=== PATIENT | female | born 1955 | race Caucasian/White ===

== ENCOUNTER 2017-08-11 08:33 | Day surgery (SDC) | payer MEDICARE, MEDICAID ==
[2017-08-10 15:06] VITALS: BMI 27.3
[2017-08-11] MEDS ORDERED: Midazolam HCl 2 mg/2 ml Vial ONE (09:41)
[2017-08-11] MEDS ORDERED: Fentanyl 100 MCG/2 ML VIAL ONE (09:41)
[2017-08-11] MEDS ORDERED: Lidocaine 1% (PF) 30 ML VIAL ONE (09:58)
[2017-08-11] MEDS ORDERED: Benzocaine 20% Spray 60 ML CAN ONE (09:58)
--- NOTE | 2017-08-11 12:14 | OP ---
DATE OF PROCEDURE: SERVICE: Pulmonary Medicine PROCEDURE: Fiberoptic bronchoscopy with: 1. Visual airway inspection. 2. Endobronchial brush of the right lower lobe. 3. Bronchioalveolar lavage of the right lower lobe. 4. Endobronchial biopsies of the right lower lobe. PREPROCEDURE DIAGNOSIS: Pulmonary mass. POSTPROCEDURE DIAGNOSIS: Pulmonary mass. PROCEDURE PARAPROFESSIONAL AIDE TEACHER: Aime Dale M.D. MEDICATIONS: For list of medicines, please refer to Anesthesia's documentation. We did instill 4 m L of a dilution of epinephrine topically into the airway. PREANESTHESIA ASSESSMENT: H\T\P had been performed. The patient's medications and allergies were r eviewed. Informed consent was obtained after discussing the risks, benefits, and rationale for perf orming the procedure as well as alternative options. DESCRIPTION OF PROCEDURE: A timeout was performed, identifying the correct procedure, patient name and date of . After induction of general anesthesia, an endotracheal tube was secured. The br onchoscope was advanced through the trachea where a tracheobronchial tree inspection was carried out with clear identification of the right upper lobe, right middle lobe, right lower lobe, left upper lobe, lingula, and left lower lobe. Anatomy was essentially normal with the exception of complete o bstruction of the superior segment of the right lower lobe. This was mostly an extrinsic compressio n. There was a possible mass that was distal to the extrinsic compression. This was not clearly id entified. Endobronchial brushing was obtained from the right lower lobe, superior segment. Endobro nchial biopsies were subsequently obtained. I was able to pass the instrument beyond or distal to t he lesion. Bronchioalveolar lavage was also obtained from the superior segment of the right lower l obe. Hemostasis was verified and the bronchoscope was subsequently removed from the patient. FINDINGS: 1. Extrinsic compression of the superior segment of the right lower lobe with possible distal mass. 2. The biopsy forceps were able to be passed distal to the extrinsic compression/mass. 3. Secretions were minimal and normal. SPECIMENS. 1. Brushing specimens for cytology. 2. Bronchioalveolar lavage for cytology. 3. Endobronchial biopsies for pathology. COMPLICATIONS: None. ESTIMATED BLOOD LOSS: 5 mL. FLUOROSCOPY TIME: None. DISPOSITION: The patient will be sent to the post-anesthesia care unit. After she meets criteria, she will be discharged home with follow up as previously directed.
[2017-08-11] MEDS ORDERED: Lidocaine 1% PF 5 ML VIAL ONE (12:53)
[2017-08-11] MEDS ORDERED: Propofol 200 MG/20 ML VIAL ONE (12:53)
[2017-08-11] MEDS ORDERED: EPINEPHrine 1 MG/10 ML Abboject SYRINGE ONE (12:53)
[2017-08-11] MEDS ORDERED: PHENYLEPHRINE-NS 100 MCG/ML 10 ML SYRINGE ONE (12:53)
[2017-08-11] MEDS ORDERED: Succinylcholine Chloride 20 MG/ML 10 ml SYRINGE FS ONE (12:53)
== END 2017-08-11 12:07 | disposition home or self-care (01) ==
LOC: SDC 08:33
PROVIDERS: ATTEND Internal Medicine
PROC: 0BDF8ZX Extraction of Right Lower Lung Lobe, Via Natural or Artificial Opening Endoscopic, Diagnostic (ICD-10-PCS; principal; 2017-08-11)
DX: R91.1 Solitary pulmonary nodule (principal); J44.9 Chronic obstructive pulmonary disease, unspecified; F32.9 Major depressive disorder, single episode, unspecified; M19.90 Unspecified osteoarthritis, unspecified site; I10 Essential (primary) hypertension; Z91.041 Radiographic dye allergy status; Z88.1 Allergy status to other antibiotic agents; Z79.899 Other long term (current) drug therapy; Z90.49 Acquired absence of other specified parts of digestive tract; Z90.710 Acquired absence of both cervix and uterus; Z98.890 Other specified postprocedural states; Z87.891 Personal history of nicotine dependence
CPT/HCPCS: 88104; 88112; 88305; 88313; 88341; 88342; J0171; J2001; J2250; J2704; J3010; J7620

== ENCOUNTER 2017-08-27 20:01 | Emergency (ER) | payer MEDICARE, MEDICAID ==
[2017-08-27 20:25] LABS: Bilirubin Negative (Negative); Blood, Urine Negative (Negative); Glucose, Urine (Dipstick) Negative (Negative); Ketone, Urine Negative (Negative); Nitrite Negative (Negative); Protein, Urine (Dipstick) Negative (Neg-Trace); Urobilinogen 0.2 mg/dL (0.2-1.0)
[2017-08-27 20:27] LABS: Bacteria/HPF Rare-Few HPF (None Seen); Hyaline Casts/LPF 0-3 HYALINE CAST LPF (0-3 Hyaline); Squamous Epithelial 0-3 HPF (0-3); WBC/HPF 0-3 HPF (0-3)
[2017-08-27] MEDS ORDERED: Ketorolac Tromethamine 30 MG/ML VIAL ONE (22:34)
--- NOTE | 2017-08-27 23:03 | CT ---
ABDOMEN AND PELVIC CT NONCONTRAST RENAL CALCULUS PROTOCOL 08/27/17 COMPARISON: 06/15/14 INDICATION: Abdominal pain. FINDINGS: No significant abnormality at the lung bases is present. No urolithiasis or obstructive uropathy. Pr ior cholecystectomy. Solid abdominal organs, bowel, lymph nodes, vasculature are limited in assessme nt without the presence of IV contrast or enteric contrast. There is colonic diverticulosis. Extens jyotsna atherosclerotic vascular disease is present. There is a fat containing noninflamed ventral abdom inal wall hernia. There are osseous degenerative changes. IMPRESSION: 1. No urolithiasis or obstructive uropathy. 2. Extensive atherosclerotic vascular disease. POS: [facility]
== END 2017-08-27 23:42 | disposition home or self-care (01) ==
LOC: ERS 20:01
DX: R31.9 Hematuria, unspecified (principal); J45.909 Unspecified asthma, uncomplicated; F41.9 Anxiety disorder, unspecified; F32.9 Major depressive disorder, single episode, unspecified; F17.210 Nicotine dependence, cigarettes, uncomplicated
CPT/HCPCS: 74176; 81003; 81015; 87086; 96372; J1885

== ENCOUNTER 2017-09-01 07:58 | Emergency (ER) | payer MEDICARE, MEDICAID ==
[2017-09-01] MEDS ORDERED: Ketorolac Tromethamine 60 MG/2 ML VIAL ONE (08:24)
[2017-09-01] MEDS ORDERED: Lorazepam 2 MG/ML VIAL ONE (08:55)
[2017-09-01] MEDS ORDERED: Morphine 10 MG/ML VIAL ONE (08:55)
== END 2017-09-01 09:55 | disposition home or self-care (01) ==
LOC: ERS 07:58
DX: M54.41 Lumbago with sciatica, right side (principal); I10 Essential (primary) hypertension; J45.909 Unspecified asthma, uncomplicated; K50.90 Crohn's disease, unspecified, without complications; F17.210 Nicotine dependence, cigarettes, uncomplicated; F32.9 Major depressive disorder, single episode, unspecified
CPT/HCPCS: J1885; J2060; J2270

== ENCOUNTER 2017-09-01 13:35 | Outpatient (CLI) | payer MEDICARE, MEDICAID ==
--- NOTE | 2017-09-02 10:22 | PET ---
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 Exam is requested for initial staging. TECHNIQUE: PET scanning with CT attenuation correction was performed from the base of the brain through the prox imal thighs following the intravenous administration of 12.5 mCi [id number] on the right hand. Imaging was performed after an uptake interval of 32 minutes. CORRELATION: CT scan of the chest dated 07/30/17 and abdomen and pelvis dated 07/21/17 from [facility]. FINDINGS: There is hypermetabolic activity in the right hilar mass seen on the CT scan with an SUV of 7.6. No hypermetabolic activity is seen in the small left lung nodule (lingula). No geri hypermetabolism is seen in the mediastinum, axillae, left hilum, neck, abdomen, or pelvis. No hypermetabolic liver, adrenal, or skeletal lesions are seen. There is physiologic activity in the GI and tracts, visualized portions of the brain, and some of the skeletal muscles. The CT scan used for attenuation correction demonstrates no evidence of pleural effusions or ascites. IMPRESSION: Right hilar/perihilar lung malignancy. No evidence of distant metastatic disease. POS: [facility]
== END 2017-09-01 13:36 | disposition home or self-care (01) ==
LOC: PET 13:35
PROVIDERS: ATTEND Internal Medicine
DX: C34.90 Malignant neoplasm of unspecified part of unspecified bronchus or lung (principal); C34.01 Malignant neoplasm of right main bronchus
CPT/HCPCS: 78815; A9552; 96372; 99406; J1885; J2060; J2270

== ENCOUNTER 2017-09-06 16:34 | Inpatient (IN) | payer MEDICARE, MEDICAID ==
[~2017-09-06 16:34] MED LIST: ISOVUE-370 76%-LOCM 1 ML ONE
--- NOTE | 2017-09-06 17:40 | RAD ---
CHEST 1 VIEW: Date: 09/06/17 HISTORY: Shortness of breath. Difficulty breathing. COMPARISON: PET scan dated 09/01/17. FINDINGS: There is a right hilar mass. Remainder of the lungs are relatively clear. No pneumothorax or effusion . IMPRESSION: 1. Right hilar mass. 2. Left lower lobe pulmonary nodule measuring approximately 7.[address] images from PET CT examin [facility]. POS: [facility]
[2017-09-06 17:41] LABS: Bilirubin Negative (Negative); Blood, Urine Negative (Negative); Glucose, Urine (Dipstick) Negative (Negative); Ketone, Urine Negative (Negative); Nitrite Negative (Negative); Protein, Urine (Dipstick) Negative (Neg-Trace); Urobilinogen 0.2 mg/dL (0.2-1.0)
[2017-09-06] MEDS ORDERED: methylPREDNISolone Sod Succ/PF 125 MG/2 ML VIAL ONE (17:55)
[2017-09-06] MEDS ORDERED: diphenhydrAMINE 50 MG/ML VIAL ONE (17:55)
[2017-09-06] MEDS ORDERED: Water For Inject, Bacteriostat 30 ML ONE (17:55)
[2017-09-06] MEDS ORDERED: Famotidine/PF 20 mg/2ml Vial ONE (17:58)
[2017-09-06 18:21] LABS: #Basophils 0.1 thou/uL (0.0-0.2); #Eosinphils 0.3 thou/uL (0.0-0.7); #Lymphocytes 2.1 thou/uL (1.20-3.40); #Monocytes 0.6 thou/uL (0.11-0.59); #Neutrophils 4.5 thou/uL (1.40-6.50); %Basophils 0.8 % (0.0-1.0); %Eosinophils 3.6 % (0.0-10.0); %Lymphocytes 27.7 % (21.0-51.0); %Monocytes 7.9 % (0.0-10.0); Mean Platelet Volume 6.2 fL (7.4-10.4); Red Blood Cell (RBC) Count 3.79 mill/uL (4.20-5.40); White Blood Cell (WBC) Count 7.5 thou/uL (4.8-10.8)
[2017-09-06 18:34] LABS: Lactic Acid - Sepsis 1.3 mmol/L (0.5-2.2)
[2017-09-06 18:38] LABS: ALT (SGPT) 29 U/L (8-55); AST (SGOT) 28 U/L (5-34); Alkaline Phosphatase 77 U/L (40-150); Anion Gap 14 mmol/L (10-20); BUN (Urea Nitrogen) 10 mg/dL (9.8-20.1); Bilirubin, Total 0.2 mg/dL (0.2-1.2); Calc. Creatinine Clearance 0 mL/min (70-130); Calcium 9.5 mg/dL (7.8-10.44); Carbon Dioxide 25 mmol/L (22-29); Chloride 102 mmol/L (98-107); Estimated GFR-MDRD 76; Globulin 3.4 g/dL (2.4-3.5); Lipase 5 U/L (8-78); Magnesium 1.9 mg/dL (1.6-2.6); Protein, Total 6.9 g/dL (6.0-8.3)
[2017-09-06 18:43] LABS: Troponin I Less than 0.010 ng/mL (< 0.028)
[2017-09-06] MEDS ORDERED: Enoxaparin Sodium 80 MG/0.8 ML SYRINGE ONE (19:33)
[2017-09-06] MEDS ORDERED: Morphine 4 MG/ML VIAL ONE (19:33)
--- NOTE | 2017-09-06 19:48 | CT ---
CTA CHEST WITH CONTRAST: Date: 09/06/17 HISTORY: Difficulty breathing today. COMPARISON: None. FINDINGS: CT angiogram chest performed after the intravenous administration of contrast. 3D rendering provided. There are emboli within the posterior and lateral segmental pulmonary arteries of the right lower lob e. There is also segmental occluding emboli within the posterior and lateral segmental branches of th e left lower lobe. No evidence of right heart strain. No pericardial effusion. No bowing of the intraventricular septum. Small, fat-containing ventral hernia is present. There are abnormal, mildly prominent portocaval lymph nodes. Right hilar mass is seen similar to the comparison PET CT examination. There are severe emphysematous changes. There is a nodule within the lingula measuring approximately 8.0 mm. There is new from the prior examination opacity within the lateral segment right lower lobe likely se quelae of hemorrhage and pulmonary infarction. No suspicious lytic or blastic lesions of the skeleton. IMPRESSION: 1. Bilateral lower lobe segmental pulmonary arterial filling defects with hemorrhage within lateral basal segment right lower lobe likely sequelae of pulmonary infarction. 2. Right hilar malignancy similar to the PET CT examination. 3. Extensive emphysematous changes. 4. Pulmonary nodule within the lingula measuring approximately 8 mm. Close attention on follow-up i emma is recommended. 5. 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 The subclavian is patent. Dr. Rhodes notified of findings at 1900 hours. CODE CR. POS: [facility]
--- NOTE | 2017-09-06 19:51 | CT ---
CT ABDOMEN AND PELVIS WITH CONTRAST: Date: 09/06/17 HISTORY: Abdominal pain. COMPARISON: PET CT from 09/01/17. FINDINGS: There are mildly prominent jostin hepatis lymph nodes measuring up to 8.0 mm short axis. There is mild fatty atrophy of the pancreas, Small, fat-containing supraumbilical ventral hernia. No dilated loops of large or small bowel. There appear to be hysterectomy changes and some scarring i n the pelvis. There is mild stranding around the right internal iliac veins with a thrombus of the in ferior vena cava. The IVC thrombus is infrarenal. Renal hypodensities are similar. No hydronephrosis. IMPRESSION: Large volume thrombus of the inferior vena cava measuring at least 6.0 cm in length extending into th e pelvic veins with inflammatory stranding around the deep internal iliac veins likely sequelae of th rombus. Dr. Rhodes notified of findings 1905 hours. CODE CR. POS: [facility]
--- NOTE | 2017-09-06 21:20 | PDOC.EVN ---
Event Note - Event Note Event Note: [id number] 1. PE + IVC thrombus 2. htn 3. copd + lUNG CA 4. DM type 2 5. Anxiety pLAN: SEE ORDERS
[2017-09-06] MEDS ORDERED: Ondansetron HCl/PF 4 MG/2 ML Vial IVP PRN (21:43)
[2017-09-06] MEDS ORDERED: HYDROcodone/Acetaminophen 5/325 mg Tablet PO PRN (21:43)
[2017-09-06] MEDS ORDERED: Ondansetron ODT 4 MG TAB SL PRN (21:43)
[2017-09-06] MEDS ORDERED: Acetaminophen 325 MG TAB PO PRN (21:43)
[2017-09-06] MEDS ORDERED: Morphine 4 MG/ML VIAL IV PRN (21:44)
[2017-09-06] MEDS ORDERED: Albuterol Sulfate 1.25 MG/3 ML NEB NEB PRN (22:07)
[2017-09-07] MEDS: methylPREDNISolone Sod Succ/PF 125 MG/2 ML VIAL IVP SCH ×5 (00:17→23:44)
[2017-09-07] MEDS: HYDROcodone/Acetaminophen 5/325 mg Tablet PO PRN ×2 (00:18→08:22)
[2017-09-07] MEDS: Sodium Chloride 0.45% 1,000 ML IV SCH ×2 (00:28→09:59)
[2017-09-07 05:28] LABS: #Lymphocytes 0.8 thou/uL (1.20-3.40); #Monocytes 0.1 thou/uL (0.11-0.59); #Neutrophils 6.7 thou/uL (1.40-6.50); %Eosinophils 0.2 % (0.0-10.0); %Lymphocytes 10.9 % (21.0-51.0); %Monocytes 1.7 % (0.0-10.0); Mean Platelet Volume 6.1 fL (7.4-10.4); Red Blood Cell (RBC) Count 3.88 mill/uL (4.20-5.40); White Blood Cell (WBC) Count 7.7 thou/uL (4.8-10.8)
[2017-09-07 05:45] LABS: ALT (SGPT) 29 U/L (8-55); AST (SGOT) 21 U/L (5-34); Alkaline Phosphatase 67 U/L (40-150); Anion Gap 14 mmol/L (10-20); BUN (Urea Nitrogen) 11 mg/dL (9.8-20.1); Bilirubin, Total 0.2 mg/dL (0.2-1.2); Calc. Creatinine Clearance 93 mL/min (70-130); Calcium 9.5 mg/dL (7.8-10.44); Carbon Dioxide 26 mmol/L (22-29); Chloride 100 mmol/L (98-107); Estimated GFR-MDRD 79; Globulin 3.7 g/dL (2.4-3.5); Protein, Total 7.3 g/dL (6.0-8.3)
--- NOTE | 2017-09-07 06:28 | HP ---
DATE OF ADMISSION: 09/06/2017 CHIEF COMPLAINT: Dyspnea. HISTORY OF PRESENT ILLNESS: The patient is a 61-year-old female with past medical history of right-s ided stage IV lung CA, currently not on chemo or radiation therapy, with hypertension, COPD, Crohn's disease, depression, anxiety, diabetes mellitus, came to the ER because of the dyspnea. The patient said she always has this but dyspnea got worse since this morning. Dyspnea occurs even with rest. D yspnea occurs with minimal exertion. Complains of chest pain, intermittent, sharp kind of pain in th e right side of the chest. Complains of some dry cough. Denies sputum production, denies any fever, denies any chills, no aggravating pain, denies any dizziness, denies any lightheadedness, denies any nausea, denies any vomiting. PAST MEDICAL HISTORY: As per HPI. PAST SURGICAL HISTORY: Colectomy, hysterectomy. SOCIAL HISTORY: Positive for smoking, denies alcohol, denies any drugs. FAMILY HISTORY: Denies any heart problems. REVIEW OF SYSTEMS: Constitutional: Denies any fever, denies any chills. Eyes: Denies any vision p roblems. Ears: Denies any hearing loss. Neck: Denies any neck pain. Cardiovascular System: Posi tive for chest pain. Respiratory System: Denies any cough, denies sputum production. Gastrointesti nal System: Denies any nausea. Denies any vomiting. Genitourinary: Denies dysuria. Integumentary : Denies any rash. All other review of systems are reviewed and negative. PHYSICAL EXAMINATION: CONSTITUTIONAL/VITAL SIGNS: At the time of H&P performed, blood pressure is 130/70, pulse ox 94% on 3 liters, afebrile, respiration rate 18. GENERAL: The patient appears tired. HEENT: Anterior nares patent. Nose normal. Ears normal. Teeth intact. Tongue is moist. NECK: Supple, no JVD. CARDIOVASCULAR SYSTEM: S1 and S2 present. Regular rate and rhythm. No murmurs, no rubs, no gallops . RESPIRATORY SYSTEM: Diminished breath sounds present. Positive for wheezing, no rhonchi. Normal ef fort. GASTROINTESTINAL: Abdomen is soft, nontender, no guarding, no organomegaly, no masses felt. MUSCULOSKELETAL: No edema. INTEGUMENTARY: No rashes seen. PSYCHIATRIC: Mood appropriate at this time. LABORATORY DATA: At the time of H&P performed, white count 7.5, hemoglobin 10.8, platelet count is 3 09. D-dimer 3.10. BMP shows sodium 137, potassium 4.2, chloride 102, CO2 of 25, BUN of 10, creatini ne 0.7, AST 28, ALT 29, alkaline phosphatase 77, lipase 5. UA, specific gravity 1.0016. 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 CT abdomen an d pelvis is positive for large volume thrombus in the inferior vena cava measuring at least 6 cm in l ength extending into the pelvic veins with inflammatory stranding around the deep internal iliac vein s, likely sequelae of thrombus. ASSESSMENT AND PLAN: The patient is a 61-year-old female: 1. 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 The patient did receive a dose of Lovenox in the ER. We will continue Lovenox. We will monitor the patient closely. We wi ll consult Hematology/Oncology to evaluate the patient. We will continue breathing treatments and we will follow the patient. 2. History of chronic obstructive pulmonary disease plus lung carcinoma. Continue breathing treatme nts. Plan to consult Pulmonary to evaluate the patient. Plan to start the patient on IV steroids al so. 3. Her right-sided chest pain appears atypical, plan is to check serial cardiac enzymes. We will mo nitor. 4. History of hypertension. Continue blood pressure meds. 5. History of diabetes mellitus type 2. Monitor blood sugars. We will give insulin sliding scale. 6. History of anxiety and depression, p.r.n. anxiolytics. The case was discussed in detail with the patient. The patient is FULL CODE.
[2017-09-07] MEDS ORDERED: Enoxaparin Sodium 80 MG/0.8 ML SYRINGE SC SCH (09:00)
[2017-09-07] MEDS: ALPRAZolam 0.25 MG TAB PO PRN ×2 (11:28→20:47)
[2017-09-07] MEDS: hydrALAZINE 20 MG/ML VIAL SLOW IVP PRN ×2 (11:51→20:38)
--- NOTE | 2017-09-07 12:34 | CON ---
DATE OF CONSULTATION: 09/07/2017 REASON FOR CONSULTATION: Lung cancer. HISTORY OF PRESENT ILLNESS: Ms. Steel is a 61-year-old female who presented to our facility with shortness of breath. She had a CT angio which noted a thrombus in the inferior vena cava. She also had bilateral subsegmental pulmonary emboli. She was started on Lovenox and admitted for further evaluation. In 07/[address] scan that showed pulmonary nodules including a 3.8 cm right posterior infrahilar mass and a 0.7 cm subpleural nodule at the left base. She had a bronchoscopy which showed a moderately differentiated adenocarcinoma. She followed up with Dr. Carrasco in August. She had a PET scan which was positive in the right perihilar area. The subpleural nodule was negative. Her on site coordinator who felt that she was a borderline operable so she was referred to [facility] to Dr. Roper for surgical evaluation. She has not been given an appointment yet. On Thursday, she began to have increasing shortness of breath and presented to our ER. PAST MEDICAL HISTORY: 1. Newly diagnosed lung cancer. 2. Hypertension. 3. Osteoarthritis. 4. Chronic obstructive pulmonary disease. 5. Bipolar disease. 6. Acid reflux. 7. Hepatitis C. 8. Crohn's disease. 9. History of polysubstance abuse. 10. History of uterine cancer, status post hysterectomy. 11. History of colon cancer with partial colectomy. PAST SURGICAL HISTORY: 1. Partial colectomy 2. Hysterectomy. 3. Cholecystectomy. 4. Bronchoscopy. ALLERGIES: CLARITHROMYCIN and IODINE. HOME MEDICATIONS: 1. Tylenol #3 p.r.n. 2. Albuterol inhaler. 3. Citalopram 20 mg daily. 4. Hydroxyzine 50 mg p.r.n. 5. Risperidone 2 mg b.i.d. 6. Trazodone 50 mg daily. FAMILY HISTORY: History of protein C deficiency. Her sister at the age of 19. Her mother at the age of 40 from clotting from blood clots. SOCIAL HISTORY: Single, has 3 children, lives at [facility]. REVIEW OF SYSTEMS: CONSTITUTIONAL: No fever, chills, night sweats. EYES: No blurred or double vision. ENT: No pain, hoarseness, sore throat, dysphagia. CARDIOVASCULAR: No chest pain, palpitations or syncope. RESPIRATORY: Positive shortness breath, dyspnea on exertion or orthopnea. GASTROINTESTINAL: No nausea, vomiting, diarrhea, constipation, or abdominal pain. GENITOURINARY: No dysuria or hematuria. MUSCULOSKELETAL: No joint or back pain. SKIN: No rash or pruritus. HEMATOLOGIC: No bleeding, bruising or clotting. NEUROLOGIC: Denies weakness, headache, numbness, tingling or seizure activity. PSYCHIATRIC: Positive for anxiety. PHYSICAL EXAMINATION: VITAL SIGNS: Temperature is 98.3, pulse is 86, respiratory rate 16, BP is 166/ 77. She is 96% on 2 liters. GENERAL: Well-developed, well-nourished female in no acute distress. HEENT: Normocephalic, atraumatic. Pupils equal and reactive to light. NECK: Supple. CARDIOVASCULAR: Regular rate and rhythm. LUNGS: Diminished throughout. ABDOMEN: Soft, nontender, bowel sounds are positive. EXTREMITIES: No clubbing, cyanosis or edema. SKIN: No rash. HEMATOLOGIC: No petechia or purpura. NEUROLOGICAL: Nonfocal. PSYCHIATRIC: The patient is alert and oriented and appropriate. PERTINENT LABORATORY AND X-RAYS: Current WBCs are 7.7, hemoglobin 11, hematocrit 34, platelet count 337,000. She got 88% neutrophils, 10% lymphocytes. D-dimer is 3.1. Sodium is 135, potassium 4.5, chloride 100, CO2 is 26, BUN 11, creatinine 0.75. Lactic acid is 1.3, calcium 9.5, total bilirubin is 0.2, AST is 21, ALT is 29, alkaline phosphatase is 67. CK-MB 3.7, troponin is less than 0.010. Serum total protein 7.3, albumin 3.6, globulin 3.7 , lipase is 5. Urine is negative for bacteria. Radiology per HPI. IMPRESSION: 1. Right lower lobe adenocarcinoma. 2. Pulmonary embolus, IVC thrombus. 3. Chronic obstructive pulmonary disease. DISCUSSION: The patient is currently on full dose Lovenox anticoagulation. She can be transitioned to oral anticoagulation with Eliquis, coumadin, or Xarelto. She is currently on O2. I will consult Dr. Dale for her COPD. The plan is for her to see Dr. Roper at [facility] for possible curative surgery. She should follow up with him and Dr. Luna in the outpatient setting. Thank you for the consult. CHRIS
--- NOTE | 2017-09-07 13:26 | PDOC.PN ---
- Subjective Encounter Start Date: 09/07/17 Encounter Start Time: 07:00 Pt seen for followup re: pulmonary embolism. Says she feels better. Still has SOBOE. No chest pain. - Objective MAR Reviewed: Yes Vital Signs & Weight: Vital Signs (12 hours) Temp Pulse Resp BP Pulse Ox 09/07/17 11:51 86 09/07/17 11:44 98.4 F 86 20 184/80 H 94 L 09/07/17 10:02 96 09/07/17 10:00 86 16 96 09/07/17 09:30 166/77 H 09/07/17 08:25 98.3 F 86 16 95 09/07/17 08:00 98.3 F 89 20 170/74 H 95 09/07/17 06:27 72 16 09/07/17 04:49 98.3 F 75 16 92/57 L 97 09/07/17 03:44 97.6 F 71 16 140/68 93 L Weight Admit Weight 167 lb 9.6 oz Weight 162 lb 14.4 oz I&O: 09/06/17 09/07/17 09/08/17 06:59 06:59 06:59 Intake Total 1431 Balance 1431 Result Diagrams: 09/07/17 04:51 09/07/17 04:51 EKG Reviewed by me: Yes (Tele: NSR) Phys Exam - Physical Examination Constitutional: NAD HEENT: PERRLA, moist MMs, sclera anicteric, oral pharynx no lesions Neck: no nodes, no JVD, supple, full ROM Respiratory: no wheezing, no rales, no rhonchi Diminished air entry anne bases Cardiovascular: RRR, no rub Gastrointestinal: soft, non-tender, no distention, positive bowel sounds Musculoskeletal: pulses present, edema present Neurological: moves all 4 limbs Psychiatric: normal affect, A&O x 3 Skin: no rash, normal turgor, cap refill <2 seconds Dx/Plan (1) Pulmonary embolism Code(s): I26.99 - OTHER PULMONARY EMBOLISM WITHOUT ACUTE COR PULMONALE Status : Acute (2) COPD exacerbation Code(s): J44.1 - CHRONIC OBSTRUCTIVE PULMONARY DISEASE W (ACUTE) EXACERBATION Status: Acute (3) HTN (hypertension) Code(s): I10 - ESSENTIAL (PRIMARY) HYPERTENSION Status: Chronic (4) DM2 (diabetes mellitus, type 2) Status: Chronic (5) Anxiety and depression Code(s): F41.8 - OTHER SPECIFIED ANXIETY DISORDERS Status: Chronic - Plan continue antibiotics, PT/OT * . Pt has been started on Lovenox, will switch to apixaban. Continue oxygen, steroids, bronchodilators and antibiotics. Monitor vital signs, titrate antihypertensives as needed. Continue accuchecks, insulin sliding scale. Review of Systems - Review of Systems Constitutional: negative: Fever, Chills, Sweats, Weakness, Malaise, Other Respiratory: Cough, Dry, Shortness of Breath, SOB with Excertion. negative: Hemoptysis, Pleuritic Pain, Sputum, Wheezing Cardiovascular: negative: Chest Pain, Palpitations, Orthopnea, Paroxysmal Noc. Dyspnea, Edema, Light Headedness Gastrointestinal: negative: Nausea, Vomiting, Abdominal Pain, Diarrhea, Constipation, Melena, Hematochezia Genitourinary: negative: Dysuria, Frequency, Incontinence, Hematuria, Retention - Medications/Allergies Allergies/Adverse Reactions: Allergies Allergy/AdvReac Type Severity Reaction Status Date / Time iodine Allergy Severe Anaphylaxis Verified 09/06/17 22:51 clarithromycin [From Biaxin] Allergy Rash Verified 09/06/17 22:51 Medications: Current Medications Acetaminophen/Codeine Phosphate (Tylenol #3) 1 tab PO Q6H PRN PRN Reason: Pain Albuterol Sulfate (Albuterol Sulfate) 1.25 mg NEB Q2H PRN PRN Reason: Wheezing Albuterol/Ipratropium (Duoneb) 3 ml IPPB [id number] [facility] Last Admin: 09/07/17 10:00 Dose: 3 ml Alprazolam (Xanax) 0.25 mg PO TIDPRN PRN PRN Reason: Anxiety Last Admin: 09/07/17 11:28 Dose: 0.25 mg Enoxaparin Sodium (Lovenox) 80 mg SC 0900,2100 [facility] Last Admin: 09/07/17 08:21 Dose: 80 mg Hydralazine HCl (Apresoline) 10 mg SLOW IVP Q6H PRN PRN Reason: SBP Greater Than 170 Last Admin: 09/07/17 11:51 Dose: 10 mg Methylprednisolone Sodium Succinate (Solu-Medrol) 60 mg IVP Q6HR [facility] Last Admin: 11/20/17 11:28 Dose: 60 mg Sodium Chloride (Flush - Normal Saline) 10 ml IVF Q12HR [facility] Last Admin: 09/07/17 08:22 Dose: Not Given Sodium Chloride (Flush - Normal Saline) 10 ml IVF PRN PRN PRN Reason: Saline Flush
--- NOTE | 2017-09-07 15:44 | ULT ---
BILATERAL LOWER EXTREMITY VENOUS DOPLER WITH SPECTRAL ANALYSIS AND COLOR FLOW EVALUATION: DATE: 09/07/17. HISTORY: Bilateral pulmonary emboli. FINDINGS: Ford scale, color flow, Doppler evaluation, and spectral analysis of the bilateral lower extremity ve nous structures is performed with 2D imaging. The bilateral lower extremity common femoral, superfic ial femoral, popliteal, posterior tibial, most proximal greater saphenous, and profunda femoral veins are imaged. There is normal lumen compressibility, flow, and augmentation in the visualized deep venous structure s of the bilateral lower extremities. IMPRESSION: No evidence of a deep vein thrombosis involving the visualized deep venous structures bilateral lower extremities. POS: [facility]
--- NOTE | 2017-09-07 16:48 | CON ---
DATE OF CONSULTATION: 09/07/2017 CONSULTING PHYSICIAN: [facility]. REASON FOR CONSULTATION: COPD management. HISTORY OF PRESENT ILLNESS: This is a 61-year-old female who was recently diagnosed with stage IV jin ng cancer, mainly encompassing the right lung. She underwent fiberoptic bronchoscopy by Dr. Dale on 08/11/2017. The pathology results demonstrated adenocarcinoma. She is currently in the process o f an oncologic workup, but has not started any type of therapy. Yesterday, she came in with severe shortness of breath. She lives in a homeless [facility]. She has be en unable to take breathing medication because she does not have a nebulizer to do so. She has CT pu lmonary angiogram performed here, which showed the aforementioned malignancy. She also had several s mall emboli in both of her lower lobes. PAST MEDICAL HISTORY: 1. Chronic obstructive pulmonary disease. 2. Uterine cancer. 3. Colon cancer. 4. Asthma. 5. Crohn's disease. 6. Major depressive disorder. 7. Osteoarthritis. 8. Chronic back pain. 9. Alcohol abuse. 10. Hypertension. 11. Polysubstance abuse. PAST SURGICAL HISTORY: 1. Partial colectomy. 2. Hysterectomy. 3. Cholecystectomy. 4. Bronchoscopy. FAMILY MEDICAL HISTORY: Remarkable for lung cancer in her sister, dad had tuberculosis. SOCIAL HISTORY: She smokes 7 cigarettes per day. She smoked more heavily in the past. Does not use any illicit drugs currently, but had a history of using some in the past. She lives at the [facility]. ALLERGIES: IODINE and BIAXIN. MEDICATIONS PRIOR TO ADMISSION: Albuterol, risperidone, citalopram, hydroxyzine, and trazodone. REVIEW OF SYSTEMS: Otherwise, negative. PHYSICAL EXAMINATION: VITAL SIGNS: Temperature is 98.4, pulse 86, respirations 16, O2 sat 97% on 2 liters, blood pressure 184/80. GENERAL: She is awake, alert, pleasant, and in no distress. HEENT: Pupils react. Sclerae anicteric. Oropharynx clear. NECK: Without adenopathy or JVD. LUNGS: Clear to auscultation without wheezing or rhonchi. CARDIAC: S1, S2 regular without murmur. ABDOMEN: Soft and nontender. EXTREMITIES: Show trace edema in the ankle region. NEUROLOGIC: Nonfocal. SKIN: Shows no abnormalities. LABORATORY DATA: White blood cell count 7.7, hematocrit 34, platelet count 337. D-dimer 3.1. Sodiu m 135, potassium 4.5, chloride 100, CO2 of 26, BUN 11, creatinine 0.7, glucose 151. ASSESSMENT: 1. Pulmonary emboli. 2. Lung cancer. 3. Chronic obstructive pulmonary disease. RECOMMENDATIONS: She needs to be anticoagulated, probably indefinitely given her underlying malignan cy. She also has a history of protein S deficiency and family members and she may well be that way t o. Anticoagulation will be somewhat tricky. My guess would be because of her financial situation, t he newer anticoagulants will not be affordable to her and she may need to be on warfarin instead of t he Eliquis that she currently having her own. Her COPD issues can be treated with DuoNeb or a Combiv ent inhaler. I do not think she needs to be on steroids at this time. I would go ahead and scan her lower extremities to see if she has a DVT. I will turn her case over to Dr. Dale tomorrow.
[2017-09-07] MEDS: Acetaminophen/Codeine 30-300mg Tablet PO PRN ×2 (17:24→23:45)
[2017-09-07] MEDS: Apixaban 5 MG TAB PO SCH (20:37)
[2017-09-08 05:19] LABS: Hematocrit 36.8 % (36.0-47.0)
[2017-09-08] MEDS: methylPREDNISolone Sod Succ/PF 125 MG/2 ML VIAL IVP SCH ×4 (06:20→20:31)
[2017-09-08] MEDS: Acetaminophen/Codeine 30-300mg Tablet PO PRN ×2 (06:25→17:53)
--- NOTE | 2017-09-08 09:18 | PDOC.PN ---
- Subjective Encounter Start Date: 09/08/17 Encounter Start Time: 07:40 Pt seen for followup re; pulmonary embolism. Denies chest pain, shortness of breath is better. No nausea or vomiting. - Objective MAR Reviewed: Yes Vital Signs & Weight: Vital Signs (12 hours) Temp Pulse Resp BP Pulse Ox 09/08/17 07:20 98.4 F 72 16 181/82 H 100 09/08/17 07:16 81 16 94 L 09/08/17 04:42 98 09/08/17 03:46 98.6 F 88 16 153/70 H 96 09/08/17 03:05 85 16 95 09/07/17 23:55 98.6 F 103 H 16 105/68 98 09/07/17 22:29 73 16 96 Weight Admit Weight 167 lb 9.6 oz Weight 162 lb 14.4 oz I&O: 09/07/17 09/08/17 09/09/17 06:59 06:59 06:59 Intake Total 1431 3540 Balance 1431 3540 Result Diagrams: 09/08/17 05:08 09/07/17 04:51 EKG Reviewed by me: Yes (Tele: NSR) Phys Exam - Physical Examination Constitutional: NAD HEENT: PERRLA, moist MMs, sclera anicteric, oral pharynx no lesions Neck: no nodes, no JVD, supple, full ROM Respiratory: no wheezing, no rales, no rhonchi, clear to auscultation bilateral Diminished air entry anne bases Cardiovascular: RRR, no rub Gastrointestinal: soft, non-tender, no distention, positive bowel sounds Musculoskeletal: pulses present Neurological: moves all 4 limbs Psychiatric: normal affect, A&O x 3 Skin: no rash, normal turgor, cap refill <2 seconds Dx/Plan (1) Pulmonary embolism Code(s): I26.99 - OTHER PULMONARY EMBOLISM WITHOUT ACUTE COR PULMONALE Status : Acute (2) COPD exacerbation Code(s): J44.1 - CHRONIC OBSTRUCTIVE PULMONARY DISEASE W (ACUTE) EXACERBATION Status: Acute (3) HTN (hypertension) Code(s): I10 - ESSENTIAL (PRIMARY) HYPERTENSION Status: Chronic (4) DM2 (diabetes mellitus, type 2) Status: Chronic (5) Anxiety and depression Code(s): F41.8 - OTHER SPECIFIED ANXIETY DISORDERS Status: Chronic - Plan PT/OT, out of bed/ambulate * . Pt has been started on Apixaban. However, because of cost of apixaban, will start her on warfarin (with Lovenox bridge). Will request pharmacy to manage warfarin. Continue oxygen, bronchodilators. To followup with surgeons in [place] for treatment of lung cancer. Review of Systems - Review of Systems Constitutional: negative: Fever, Chills, Sweats, Weakness, Malaise Respiratory: Cough, Shortness of Breath. negative: Dry, Hemoptysis, Pleuritic Pain, Sputum, Wheezing Cardiovascular: negative: Chest Pain, Palpitations, Orthopnea, Paroxysmal Noc. Dyspnea, Edema, Light Headedness Genitourinary: negative: Dysuria, Frequency, Incontinence, Hematuria, Retention Neurological: negative: Weakness, Numbness, Incoordination, Change in Speech, Confusion, Seizures - Medications/Allergies Allergies/Adverse Reactions: Allergies Allergy/AdvReac Type Severity Reaction Status Date / Time iodine Allergy Severe Anaphylaxis Verified 09/06/17 22:51 clarithromycin [From Biaxin] Allergy Rash Verified 09/06/17 22:51 Medications: Current Medications Acetaminophen/Codeine Phosphate (Tylenol #3) 1 tab PO Q6H PRN PRN Reason: Pain Last Admin: 09/08/17 06:25 Dose: 1 tab Albuterol Sulfate (Albuterol Sulfate) 1.25 mg NEB Q2H PRN PRN Reason: Wheezing Albuterol/Ipratropium (Duoneb) 3 ml IPPB [id number] [facility] Alprazolam (Xanax) 0.25 mg PO TIDPRN PRN PRN Reason: Anxiety Last Admin: 09/07/17 20:47 Dose: 0.25 mg Apixaban (Eliquis) 10 mg PO BID [facility] Last Admin: 09/07/17 20:37 Dose: 10 mg Hydralazine HCl (Apresoline) 10 mg SLOW IVP Q6H PRN PRN Reason: SBP Greater Than 170 Last Admin: 09/07/17 20:38 Dose: 10 mg Methylprednisolone Sodium Succinate (Solu-Medrol) 60 mg IVP Q6HR [facility] Last Admin: 09/08/17 06:20 Dose: Not Given Sodium Chloride (Flush - Normal Saline) 10 ml IVF Q12HR [facility] Last Admin: 09/07/17 20:37 Dose: 10 ml Sodium Chloride (Flush - Normal Saline) 10 ml IVF PRN PRN PRN Reason: Saline Flush Last Admin: 09/07/17 23:45 Dose: 10 ml
[2017-09-08] MEDS ORDERED: hydrALAZINE 25 MG TAB PO PRN (09:25)
[2017-09-08] MEDS ORDERED: Enoxaparin Sodium 40 MG/0.4 ML SYRINGE SC SCH (09:30)
[2017-09-08] MEDS ORDERED: Amlodipine 5 MG TAB PO SCH (09:30)
[2017-09-08] MEDS: Apixaban 5 MG TAB PO SCH (09:52)
[2017-09-08] MEDS ORDERED: Enoxaparin Sodium 80 MG/0.8 ML SYRINGE SC SCH (10:00)
[2017-09-08] MEDS: ALPRAZolam 0.25 MG TAB PO PRN ×2 (10:09→17:55)
[2017-09-08 12:21] LABS: Prothrombin Time 13.8 SEC (12.0-14.7)
--- NOTE | 2017-09-08 15:35 | PRG ---
DATE OF SERVICE: 09/08/2017 SERVICE: Pulmonary Medicine. INTERVAL HISTORY: The patient is breathing much better today. She denies any current fevers, chills , nausea, vomiting or chest discomfort. Otherwise, she is returning to her usual state of health and has no specific complaints. PHYSICAL EXAMINATION: VITAL SIGNS: Afebrile, pulse 93, blood pressure 169/74, respirations 20, saturation 98% on room air. GENERAL: Patient is awake, alert, no apparent distress. LUNGS: Decreased air entry with prolonged expiratory phase. There is no wheezing, rhonchi, or crack les present. HEART: Normal rate and regular. ABDOMEN: Soft, nontender, nondistended. Bowel sounds positive. MUSCULOSKELETAL: No cyanosis or clubbing. No pitting in the bilateral lower extremities. NEUROLOGIC: Grossly nonfocal. LABORATORY DATA: Hemoglobin 11.6, platelets 402,000, INR 1.1. Basic metabolic profile and comprehen sive metabolic profile were previously unremarkable. IMAGING: Ultrasound of the bilateral lower extremities demonstrates no evidence of DVT involving the visualized portions of the venous structures in the bilateral lower extremities. ASSESSMENT: 1. Chronic obstructive pulmonary disease without current exacerbation. 2. Pulmonary embolism, bilateral. 3. Acute hypoxic respiratory failure, resolved. 4. Lung cancer. PLAN: We will continue Coumadin. The patient will not have any funding for long-term anticoagulatio n within normal agent. We will continue nebulized medications as previously initiated. The patient will be stable for discharge in the hospital since she has good follow up with Coumadin clinic in her blood is thin enough. I will continue to follow until that happens.
[2017-09-08] MEDS ORDERED: Warfarin Sodium 5 MG TAB PO SCH (17:00)
[2017-09-08] MEDS: Warfarin Sodium 5 MG TAB PO SCH (17:53)
[2017-09-08] MEDS: Enoxaparin Sodium 80 MG/0.8 ML SYRINGE SC SCH (20:34)
[2017-09-09] MEDS: Acetaminophen/Codeine 30-300mg Tablet PO PRN ×4 (00:07→22:27)
[2017-09-09 05:16] LABS: Prothrombin Time 13.3 SEC (12.0-14.7)
[2017-09-09 05:23] LABS: Hematocrit 36.9 % (36.0-47.0)
[2017-09-09 05:32] LABS: Calc. Creatinine Clearance 101 mL/min (70-130); Estimated GFR-MDRD Greater than 90
[2017-09-09] MEDS: Amlodipine 5 MG TAB PO SCH (08:37)
[2017-09-09] MEDS: ALPRAZolam 0.25 MG TAB PO PRN ×2 (08:37→16:05)
[2017-09-09] MEDS: Enoxaparin Sodium 80 MG/0.8 ML SYRINGE SC SCH ×2 (08:37→21:11)
--- NOTE | 2017-09-09 13:36 | PDOC.PN ---
- Subjective Encounter Start Date: 09/09/17 Encounter Start Time: 07:20 Pt seen for followup re: pulmonary embolism. No chest pain, shortness of breath , fevers. - Objective MAR Reviewed: Yes Vital Signs & Weight: Vital Signs (12 hours) Temp Pulse Resp BP BP Pulse Ox 09/09/17 11:30 97.8 F 77 18 139/68 94 L 09/09/17 11:25 79 18 94 L 09/09/17 08:37 97.6 F 82 16 167/75 H 95 09/09/17 07:25 97.6 F 82 18 167/75 H 95 09/09/17 06:33 78 16 96 09/09/17 03:45 97.9 F 64 16 157/67 H 98 Weight Admit Weight 167 lb 9.6 oz Weight 151 lb 4.8 oz I&O: 09/08/17 09/09/17 09/10/17 06:59 06:59 06:59 Intake Total 3540 430 Balance 3540 430 Result Diagrams: 09/09/17 04:35 09/09/17 04:35 Phys Exam - Physical Examination Constitutional: NAD HEENT: moist MMs Neck: supple Respiratory: no wheezing, no rales, no rhonchi, clear to auscultation bilateral Cardiovascular: RRR Gastrointestinal: soft, non-tender Neurological: moves all 4 limbs Psychiatric: normal affect Dx/Plan (1) Pulmonary embolism Code(s): I26.99 - OTHER PULMONARY EMBOLISM WITHOUT ACUTE COR PULMONALE Status : Acute (2) COPD exacerbation Code(s): J44.1 - CHRONIC OBSTRUCTIVE PULMONARY DISEASE W (ACUTE) EXACERBATION Status: Acute (3) HTN (hypertension) Code(s): I10 - ESSENTIAL (PRIMARY) HYPERTENSION Status: Chronic (4) DM2 (diabetes mellitus, type 2) Status: Chronic (5) Anxiety and depression Code(s): F41.8 - OTHER SPECIFIED ANXIETY DISORDERS Status: Chronic - Plan PT/OT, out of bed/ambulate * . INR subtherapeutic, continue warfarin with Lovenox bridge. Continue oxygen, bronchodilators. Continue insulin and accuchecks. Mionitor vital signs and titrate antihypertensives as needed. Review of Systems - Review of Systems Respiratory: negative: Cough, Dry, Shortness of Breath, Hemoptysis, SOB with Excertion, Pleuritic Pain, Sputum, Wheezing Cardiovascular: negative: Chest Pain, Palpitations, Orthopnea, Paroxysmal Noc. Dyspnea, Edema, Light Headedness - Medications/Allergies Allergies/Adverse Reactions: Allergies Allergy/AdvReac Type Severity Reaction Status Date / Time iodine Allergy Severe Anaphylaxis Verified 09/06/17 22:51 clarithromycin [From Biaxin] Allergy Rash Verified 09/06/17 22:51 Medications: Current Medications Acetaminophen/Codeine Phosphate (Tylenol #3) 1 tab PO Q6H PRN PRN Reason: Pain Last Admin: 09/09/17 10:03 Dose: 1 tab Albuterol Sulfate (Albuterol Sulfate) 1.25 mg NEB Q2H PRN PRN Reason: Wheezing Albuterol/Ipratropium (Duoneb) 3 ml NEB [id number] [facility] Last Admin: 09/09/17 11:25 Dose: 3 ml Alprazolam (Xanax) 0.25 mg PO TIDPRN PRN PRN Reason: Anxiety Last Admin: 09/09/17 08:37 Dose: 0.25 mg Amlodipine Besylate (Norvasc) 5 mg PO DAILY [facility] Last Admin: 09/09/17 08:37 Dose: 5 mg Enoxaparin Sodium (Lovenox) 70 mg SC 0900,2100 [facility] Last Admin: 09/09/17 08:37 Dose: 70 mg Hydralazine HCl (Apresoline) 10 mg SLOW IVP Q6H PRN PRN Reason: SBP Greater Than 170 Last Admin: 09/07/17 20:38 Dose: 10 mg Hydralazine HCl (Apresoline) 25 mg PO QIDPRN PRN PRN Reason: SBP Greater Than 180 Miscellaneous Medication (Pharmacy To Dose) 0 each PO ASDIR PRN PRN Reason: Pharmacy to Dose WARFARIN Sodium Chloride (Flush - Normal Saline) 10 ml IVF Q12HR [facility] Last Admin: 09/09/17 09:41 Dose: Not Given Sodium Chloride (Flush - Normal Saline) 10 ml IVF PRN PRN PRN Reason: Saline Flush Last Admin: 09/07/17 23:45 Dose: 10 ml Warfarin Sodium (Coumadin) 5 mg PO 1700 [facility] Last Admin: 09/08/17 17:53 Dose: 5 mg
[2017-09-09] MEDS: Warfarin Sodium 5 MG TAB PO SCH (16:02)
--- NOTE | 2017-09-09 18:42 | PRG ---
DATE OF SERVICE: 09/09/2017 SERVICE: Pulmonary Medicine. INTERVAL HISTORY: The patient is doing great from a respiratory standpoint. She has essentially ret urned to her usual state of health. She denies any fevers, chills, nausea, vomiting or overnight mary nts. PHYSICAL EXAMINATION: VITAL SIGNS: Afebrile, pulse 80, blood pressure 153/69, respirations 18, saturation 96% on room air. GENERAL: The patient is awake, alert, no apparent distress. LUNGS: Decent air entry. There is prolonged expiratory phase. I do not appreciate polyphonic wheez es today. He had no crackles or rhonchi appreciated. HEART: Normal rate, regular. ABDOMEN: Soft, nontender, nondistended. Bowel sounds positive. MUSCULOSKELETAL: No cyanosis or clubbing. No pitting in the bilateral lower extremities. NEUROLOGIC: Grossly nonfocal. LABORATORY DATA: Hemoglobin 11.7 and stable. Platelets 386,000. INR is still 1.0. Basic metabolic profile and liver function studies are essentially unremarkable. Urinalysis was negative to date. ASSESSMENT: 1. Chronic obstructive pulmonary disease without current exacerbation. 2. Pulmonary embolism, small and bilateral. 3. Acute hypoxic respiratory failure, resolved. 4. Lung cancer. PLAN: The patient will remain on her Coumadin. If her INR remains 1 by tomorrow, we may need to inc rease that dose. Otherwise, supportive measures will be continued. Once she is therapeutic on the C oumadin for 2 days, the Lovenox can be discontinued and she can be discharged from the hospital. Of note, she is going to go see Dr. Roper in roughly 1-2 weeks in the outpatient setting to conside r for a lobectomy. Pulmonary will continue to follow while she remains in house for now.
[2017-09-09] MEDS: Zolpidem Tartrate 5 MG TAB PO PRN (21:11)
[2017-09-10] MEDS: ALPRAZolam 0.25 MG TAB PO PRN (00:59)
[2017-09-10 05:38] LABS: Prothrombin Time 13.8 SEC (12.0-14.7)
[2017-09-10] MEDS: Amlodipine 5 MG TAB PO SCH (08:50)
[2017-09-10] MEDS: Enoxaparin Sodium 80 MG/0.8 ML SYRINGE SC SCH ×2 (08:50→20:02)
[2017-09-10] MEDS: Acetaminophen/Codeine 30-300mg Tablet PO PRN ×3 (08:51→22:52)
--- NOTE | 2017-09-10 09:06 | PDOC.PN ---
- Subjective Encounter Start Date: 09/10/17 Encounter Start Time: 09:05 Subjective: feels well. wants to go home. feels anxious. -: no chest pain/SOB. - Objective MAR Reviewed: Yes Vital Signs & Weight: Vital Signs (12 hours) Temp Pulse Resp BP BP Pulse Ox 09/10/17 07:45 97.9 F 84 20 150/108 H 98 09/10/17 06:34 82 16 94 L 09/10/17 04:10 97.9 F 79 16 117/62 94 L 09/10/17 00:42 89 16 94 L 09/10/17 00:19 98.4 F 75 18 141/65 H 91 L 09/09/17 22:26 75 153/67 H Weight Admit Weight 167 lb 9.6 oz Weight 151 lb 4.8 oz I&O: 09/09/17 09/10/17 09/11/17 06:59 06:59 06:59 Intake Total 430 240 Balance 430 240 Result Diagrams: 09/09/17 04:35 09/09/17 04:35 Additional Labs: Laboratory Tests 09/06/17 09/06/17 09/06/17 18:14 18:14 18:14 Hgb 10.8 L Plt Count 309 INR D-Dimer Troponin I Less than 0.010 B-Natriuretic Peptide 54.8 09/06/17 09/07/17 09/08/17 18:14 04:51 05:08 Hgb 11.0 L 11.6 L Plt Count 337 402 H INR D-Dimer 3.10 H Troponin I B-Natriuretic Peptide 09/08/17 09/09/17 09/09/17 12:01 04:35 04:35 Hgb 11.7 L Plt Count 386 INR 1.1 1.0 D-Dimer Troponin I B-Natriuretic Peptide 09/10/17 04:44 Hgb Plt Count INR 1.1 D-Dimer Troponin I B-Natriuretic Peptide Phys Exam - Physical Examination Constitutional: NAD HEENT: PERRLA, moist MMs, sclera anicteric, oral pharynx no lesions Neck: no nodes, no JVD, supple, full ROM Respiratory: no wheezing, no rales, no rhonchi, clear to auscultation bilateral Cardiovascular: RRR, no significant murmur, no rub, gallop Gastrointestinal: soft, non-tender, no distention, positive bowel sounds Musculoskeletal: no edema, pulses present Neurological: non-focal, normal sensation, moves all 4 limbs Psychiatric: normal affect, A&O x 3 Dx/Plan (1) Pulmonary embolism Code(s): I26.99 - OTHER PULMONARY EMBOLISM WITHOUT ACUTE COR PULMONALE Status : Acute Comment: on AC with coumadin and lovenox bridge (2) COPD exacerbation Code(s): J44.1 - CHRONIC OBSTRUCTIVE PULMONARY DISEASE W (ACUTE) EXACERBATION Status: Acute (3) IVC thrombosis Code(s): 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 - ACUTE EMBOLISM AND THROMBOSIS OF INFERIOR VENA CAVA Status : Acute (4) Adenocarcinoma, lung Code(s): C34.90 - MALIGNANT NEOPLASM OF UNSP PART OF UNSP BRONCHUS OR LUNG Status: Acute (5) H/O malignant neoplasm of colon Code(s): Z85.038 - PERSONAL HISTORY OF MALIGNANT NEOPLASM OF LARGE INTESTINE Status: Chronic Comment: s/p colectomy (6) H/O malignant neoplasm of uterine body Code(s): Z85.42 - PERSONAL HISTORY OF MALIGNANT NEOPLASM OF OTH PRT UTERUS Status: Chronic Comment: s/p hystrectomy (7) Crohn disease Code(s): K50.90 - CROHN'S DISEASE, UNSPECIFIED, WITHOUT COMPLICATIONS Status: Chronic (8) Hep C w/o coma, chronic Code(s): B18.2 - CHRONIC VIRAL HEPATITIS C Status: Chronic (9) Anxiety and depression Code(s): F41.8 - OTHER SPECIFIED ANXIETY DISORDERS Status: Chronic (10) DM2 (diabetes mellitus, type 2) Status: Chronic (11) HTN (hypertension) Code(s): I10 - ESSENTIAL (PRIMARY) HYPERTENSION Status: Chronic - Plan respiratory therapy, incentive spirometry, DVT proph w/lovenox, DVT proph w/SCDs cont Coumadin w lovenox bridging.INR still sub therapeutic. -: Pharmacy to manage. -: Increase Xanax dose -: hemodynamically stable. * . Review of Systems - Review of Systems Constitutional: negative: Fever, Chills, Sweats, Weakness, Malaise, Other ENT: negative: Ear Pain, Ear Discharge, Nose Pain, Nose Discharge, Nose Congestion, Mouth Pain, Mouth Swelling, Throat Pain, Throat Swelling, Other Respiratory: negative: Cough, Dry, Shortness of Breath, Hemoptysis, SOB with Excertion, Pleuritic Pain, Sputum, Wheezing Cardiovascular: negative: Chest Pain, Palpitations, Orthopnea, Paroxysmal Noc. Dyspnea, Edema, Light Headedness, Other Gastrointestinal: negative: Nausea, Vomiting, Abdominal Pain, Diarrhea, Constipation, Melena, Hematochezia, Other Genitourinary: negative: Dysuria, Frequency, Incontinence, Hematuria, Retention , Other Musculoskeletal: negative: Neck Pain, Shoulder Pain, Arm Pain, Back Pain, Hand Pain, Leg Pain, Foot Pain, Other Neurological: negative: Weakness, Numbness, Incoordination, Change in Speech, Confusion, Seizures, Other - Medications/Allergies Allergies/Adverse Reactions: Allergies Allergy/AdvReac Type Severity Reaction Status Date / Time iodine Allergy Severe Anaphylaxis Verified 09/06/17 22:51 clarithromycin [From Biaxin] Allergy Rash Verified 09/06/17 22:51 Medications: Current Medications Acetaminophen/Codeine Phosphate (Tylenol #3) 1 tab PO Q6H PRN PRN Reason: Pain Last Admin: 09/10/17 08:51 Dose: 1 tab Albuterol Sulfate (Albuterol Sulfate) 1.25 mg NEB Q2H PRN PRN Reason: Wheezing Albuterol/Ipratropium (Duoneb) 3 ml NEB [id number] [facility] Last Admin: 09/10/17 06:34 Dose: 3 ml Alprazolam (Xanax) 0.25 mg PO TIDPRN PRN PRN Reason: Anxiety Last Admin: 09/10/17 00:59 Dose: 0.25 mg Amlodipine Besylate (Norvasc) 5 mg PO DAILY [facility] Last Admin: 09/10/17 08:50 Dose: 5 mg Enoxaparin Sodium (Lovenox) 70 mg SC 0900,2100 [facility] Last Admin: 09/10/17 08:50 Dose: 70 mg Hydralazine HCl (Apresoline) 10 mg SLOW IVP Q6H PRN PRN Reason: SBP Greater Than 170 Last Admin: 09/07/17 20:38 Dose: 10 mg Hydralazine HCl (Apresoline) 25 mg PO QIDPRN PRN PRN Reason: SBP Greater Than 180 Miscellaneous Medication (Pharmacy To Dose) 0 each PO ASDIR PRN PRN Reason: Pharmacy to Dose WARFARIN Sodium Chloride (Flush - Normal Saline) 10 ml IVF Q12HR [facility] Last Admin: 09/10/17 08:51 Dose: 10 ml Sodium Chloride (Flush - Normal Saline) 10 ml IVF PRN PRN PRN Reason: Saline Flush Last Admin: 09/07/17 23:45 Dose: 10 ml Warfarin Sodium (Coumadin) 5 mg PO 1700 [facility] Last Admin: 09/09/17 16:02 Dose: 5 mg Zolpidem Tartrate (Ambien) 5 mg PO HS PRN PRN Reason: Insomnia Last Admin: 09/09/17 21:11 Dose: 5 mg
[2017-09-10] MEDS: ALPRAZolam 0.5 MG TAB PO PRN ×2 (10:26→20:02)
[2017-09-10] MEDS: Warfarin Sodium 7.5 MG TAB PO SCH (16:29)
[2017-09-10] MEDS ORDERED: Loperamide HCl 2 MG CAP PO PRN (16:35)
[2017-09-10] MEDS: Zolpidem Tartrate 5 MG TAB PO PRN (22:53)
[2017-09-11 05:32] LABS: Hematocrit 37.5 % (36.0-47.0)
[2017-09-11 05:34] LABS: Prothrombin Time 16.2 SEC (12.0-14.7)
[2017-09-11] MEDS: Amlodipine 5 MG TAB PO SCH (08:01)
[2017-09-11] MEDS: Enoxaparin Sodium 80 MG/0.8 ML SYRINGE SC SCH ×2 (08:01→20:36)
[2017-09-11] MEDS: ALPRAZolam 0.5 MG TAB PO PRN ×2 (08:01→16:23)
[2017-09-11] MEDS ORDERED: TRAZODONE 50 MG PO PRN (08:36)
--- NOTE | 2017-09-11 08:42 | PDOC.PN ---
- Subjective Encounter Start Date: 09/11/17 Encounter Start Time: 08:41 Subjective: no new complaints. - Objective MAR Reviewed: Yes Vital Signs & Weight: Vital Signs (12 hours) Temp Pulse Resp BP Pulse Ox 09/11/17 07:25 97.6 F 70 18 174/77 H 100 09/11/17 07:22 98 09/11/17 07:20 77 20 98 09/11/17 03:37 98.5 F 75 16 124/60 95 09/11/17 00:52 95 09/11/17 00:09 98.5 F 78 24 H 118/65 95 09/10/17 23:57 83 18 95 Weight Admit Weight 167 lb 9.6 oz Weight 146 lb 4.8 oz I&O: 09/10/17 09/11/17 09/12/17 06:59 06:59 06:59 Intake Total 240 600 Output Total 500 Balance 240 100 Result Diagrams: 09/11/17 04:59 09/11/17 04:59 Additional Labs: Laboratory Tests 09/08/17 09/09/17 09/10/17 12:01 04:35 04:44 INR 1.1 1.0 1.1 09/11/17 04:59 INR 1.3 Phys Exam - Physical Examination Constitutional: NAD HEENT: PERRLA, moist MMs, sclera anicteric, oral pharynx no lesions Neck: no nodes, no JVD, supple, full ROM Respiratory: no wheezing, no rales, no rhonchi, clear to auscultation bilateral Cardiovascular: RRR, no significant murmur, no rub, gallop Gastrointestinal: soft, non-tender, no distention, positive bowel sounds Musculoskeletal: no edema, pulses present Neurological: non-focal, normal sensation, moves all 4 limbs Psychiatric: normal affect, A&O x 3 Skin: no rash Dx/Plan (1) Pulmonary embolism Code(s): I26.99 - OTHER PULMONARY EMBOLISM WITHOUT ACUTE COR PULMONALE Status : Acute Comment: on AC with coumadin and lovenox bridge (2) COPD exacerbation Code(s): J44.1 - CHRONIC OBSTRUCTIVE PULMONARY DISEASE W (ACUTE) EXACERBATION Status: Acute (3) IVC thrombosis Code(s): I82.220 - ACUTE EMBOLISM AND THROMBOSIS OF INFERIOR VENA CAVA Status : Acute (4) Adenocarcinoma, lung Code(s): C34.90 - MALIGNANT NEOPLASM OF UNSP PART OF UNSP BRONCHUS OR LUNG Status: Acute (5) H/O malignant neoplasm of colon Code(s): Z85.038 - PERSONAL HISTORY OF MALIGNANT NEOPLASM OF LARGE INTESTINE Status: Chronic Comment: s/p colectomy (6) H/O malignant neoplasm of uterine body Code(s): Z85.42 - PERSONAL HISTORY OF MALIGNANT NEOPLASM OF OTH PRT UTERUS Status: Chronic Comment: s/p hystrectomy (7) Crohn disease Code(s): K50.90 - CROHN'S DISEASE, UNSPECIFIED, WITHOUT COMPLICATIONS Status: Chronic (8) Hep C w/o coma, chronic Code(s): B18.2 - CHRONIC VIRAL HEPATITIS C Status: Chronic (9) Anxiety and depression Code(s): F41.8 - OTHER SPECIFIED ANXIETY DISORDERS Status: Chronic (10) DM2 (diabetes mellitus, type 2) Status: Chronic (11) HTN (hypertension) Code(s): I10 - ESSENTIAL (PRIMARY) HYPERTENSION Status: Chronic - Plan out of bed/ambulate, DVT proph w/SCDs Cont coumadin w Lovenox.dose increased yesterday.monitor INR -: hemodynamically stable. -: restart home meds * . Review of Systems - Review of Systems Constitutional: negative: Fever, Chills, Sweats, Weakness, Malaise, Other Respiratory: negative: Cough, Dry, Shortness of Breath, Hemoptysis, SOB with Excertion, Pleuritic Pain, Sputum, Wheezing Cardiovascular: negative: Chest Pain, Palpitations, Orthopnea, Paroxysmal Noc. Dyspnea, Edema, Light Headedness, Other Gastrointestinal: negative: Nausea, Vomiting, Abdominal Pain, Diarrhea, Constipation, Melena, Hematochezia, Other Genitourinary: negative: Dysuria, Frequency, Incontinence, Hematuria, Retention , Other Musculoskeletal: negative: Neck Pain, Shoulder Pain, Arm Pain, Back Pain, Hand Pain, Leg Pain, Foot Pain, Other Neurological: negative: Weakness, Numbness, Incoordination, Change in Speech, Confusion, Seizures, Other - Medications/Allergies Allergies/Adverse Reactions: Allergies Allergy/AdvReac Type Severity Reaction Status Date / Time iodine Allergy Severe Anaphylaxis Verified 09/06/17 22:51 clarithromycin [From Biaxin] Allergy Rash Verified 09/06/17 22:51 Medications: Current Medications Acetaminophen/Codeine Phosphate (Tylenol #3) 1 tab PO Q6H PRN PRN Reason: Pain Last Admin: 09/10/17 22:52 Dose: 1 tab Albuterol Sulfate (Albuterol Sulfate) 1.25 mg NEB Q2H PRN PRN Reason: Wheezing Albuterol/Ipratropium (Duoneb) 3 ml NEB [id number] [facility] Last Admin: 09/11/17 07:20 Dose: 3 ml Alprazolam (Xanax) 0.5 mg PO TIDPRN PRN PRN Reason: Anxiety Last Admin: 09/11/17 08:01 Dose: 0.5 mg Amlodipine Besylate (Norvasc) 5 mg PO DAILY [facility] Last Admin: 09/11/17 08:01 Dose: 5 mg Citalopram Hydrobromide (Celexa) 20 mg PO DAILY [facility] Enoxaparin Sodium (Lovenox) 70 mg SC 0900,2100 [facility] Last Admin: 09/11/17 08:01 Dose: 70 mg Hydralazine HCl (Apresoline) 10 mg SLOW IVP Q6H PRN PRN Reason: SBP Greater Than 170 Last Admin: 09/07/17 20:38 Dose: 10 mg Hydralazine HCl (Apresoline) 25 mg PO QIDPRN PRN PRN Reason: SBP Greater Than 180 Loperamide HCl (Imodium) 2 mg PO Q4H PRN PRN Reason: Diarrhea/Loose Stools Miscellaneous Medication (Pharmacy To Dose) 0 each PO ASDIR PRN PRN Reason: Pharmacy to Dose WARFARIN Non-Formulary Medication (Risperidone [Risperidone]) 2 mg PO BID [facility] Non-Formulary Medication (Trazodone [Trazodone]) 50 mg PO HS PRN PRN Reason: Insomnia Saccharomyces Boulardii (Florastor) 250 mg PO DAILY [facility] Sodium Chloride (Flush - Normal Saline) 10 ml IVF Q12HR [facility] Last Admin: 09/11/17 08:01 Dose: 10 ml Sodium Chloride (Flush - Normal Saline) 10 ml IVF PRN PRN PRN Reason: Saline Flush Last Admin: 09/07/17 23:45 Dose: 10 ml Warfarin Sodium (Coumadin) 7.5 mg PO 1700 [facility] Last Admin: 09/10/17 16:29 Dose: 7.5 mg Zolpidem Tartrate (Ambien) 5 mg PO HS PRN PRN Reason: Insomnia Last Admin: 09/10/17 22:53 Dose: 5 mg
[2017-09-11] MEDS ORDERED: traZODone HCl 50 MG TAB PO PRN (08:45)
[2017-09-11] MEDS: Saccharomyces boulardii 250 MG CAP PO SCH (09:00)
[2017-09-11] MEDS: Citalopram 20 MG TAB PO SCH (09:00)
[2017-09-11] MEDS ORDERED: Non-Formulary Item 1 EACH (Risperidone [Risperidone] 2 MG) PO SCH (09:00)
[2017-09-11] MEDS: risperiDONE 1 MG TAB PO SCH ×2 (09:00→20:34)
[2017-09-11] MEDS: Acetaminophen/Codeine 30-300mg Tablet PO PRN ×2 (09:04→20:33)
--- NOTE | 2017-09-11 12:50 | PRG ---
DATE OF SERVICE: 09/11/2017 SUBJECTIVE: She says she feels stronger. She has been walking around. OBJECTIVE: VITAL SIGNS: Temperature 97.4, pulse 81, respirations 18, O2 saturation 100%, and blood pressure 122 /61. HEENT: Unremarkable. NECK: No JVD. CHEST: Clear. CARDIAC: S1 and S2 regular. ABDOMEN: Soft. EXTREMITIES: No edema. LABORATORY DATA: Hemoglobin 11.8, hematocrit 37.5, platelet count 364. INR 1.3. ASSESSMENT: 1. Pulmonary embolism. 2. Lung cancer. PLAN: The patient is continuing Coumadin therapy and will remain in the hospital until she develops a therapeutic INR.
[2017-09-11] MEDS: Warfarin Sodium 7.5 MG TAB PO SCH (16:23)
[2017-09-11] MEDS: Zolpidem Tartrate 5 MG TAB PO PRN (20:34)
[2017-09-12 04:46] LABS: Prothrombin Time 19.6 SEC (12.0-14.7)
[2017-09-12] MEDS: Saccharomyces boulardii 250 MG CAP PO SCH (08:27)
[2017-09-12] MEDS: risperiDONE 1 MG TAB PO SCH ×2 (08:27→21:13)
[2017-09-12] MEDS: Amlodipine 5 MG TAB PO SCH (08:27)
[2017-09-12] MEDS: Acetaminophen/Codeine 30-300mg Tablet PO PRN ×3 (08:27→21:14)
[2017-09-12] MEDS: Citalopram 20 MG TAB PO SCH (08:27)
[2017-09-12] MEDS: Enoxaparin Sodium 80 MG/0.8 ML SYRINGE SC SCH ×2 (08:28→21:14)
[2017-09-12] MEDS: ALPRAZolam 0.5 MG TAB PO PRN ×2 (08:31→14:35)
--- NOTE | 2017-09-12 09:31 | PDOC.PN ---
- Subjective Encounter Start Date: 09/12/17 Encounter Start Time: 09:29 Subjective: feelw well. no chest pain/SOB/SENIOR/Cough/fever - Objective MAR Reviewed: Yes Vital Signs & Weight: Vital Signs (12 hours) Temp Pulse Resp BP BP Pulse Ox 09/12/17 08:27 73 09/12/17 07:31 98.5 F 73 16 09/12/17 07:30 97.5 F L 69 16 144/63 H 98 09/12/17 03:30 98.5 F 73 16 126/58 L 94 L 09/12/17 00:29 97 09/11/17 23:47 62 16 97 09/11/17 23:14 98.3 F 92 16 94/52 L 94 L Weight Admit Weight 167 lb 9.6 oz Weight 146 lb 4.8 oz I&O: 09/11/17 09/12/17 09/13/17 06:59 06:59 06:59 Intake Total 600 240 Output Total 500 700 Balance 100 -460 Result Diagrams: 09/11/17 04:59 09/11/17 04:59 Additional Labs: Laboratory Tests 09/08/17 09/09/17 09/10/17 12:01 04:35 04:44 INR 1.1 1.0 1.1 09/11/17 09/12/17 04:59 04:17 INR 1.3 1.6 Phys Exam - Physical Examination Constitutional: NAD HEENT: PERRLA, moist MMs, sclera anicteric, oral pharynx no lesions Neck: no nodes, no JVD, supple, full ROM Respiratory: no wheezing, no rales, no rhonchi, clear to auscultation bilateral Cardiovascular: RRR, no significant murmur, no rub, gallop Gastrointestinal: soft, non-tender, no distention, positive bowel sounds Musculoskeletal: no edema, pulses present Neurological: non-focal, normal sensation, moves all 4 limbs Psychiatric: normal affect, A&O x 3 Skin: no rash Dx/Plan (1) Pulmonary embolism Code(s): I26.99 - OTHER PULMONARY EMBOLISM WITHOUT ACUTE COR PULMONALE Status : Acute Comment: on AC with coumadin and lovenox bridge (2) COPD exacerbation Code(s): J44.1 - CHRONIC OBSTRUCTIVE PULMONARY DISEASE W (ACUTE) EXACERBATION Status: Acute (3) IVC thrombosis Code(s): I82.220 - ACUTE EMBOLISM AND THROMBOSIS OF INFERIOR VENA CAVA Status : Acute (4) Adenocarcinoma, lung Code(s): C34.90 - MALIGNANT NEOPLASM OF UNSP PART OF UNSP BRONCHUS OR LUNG Status: Acute (5) H/O malignant neoplasm of colon Code(s): Z85.038 - PERSONAL HISTORY OF MALIGNANT NEOPLASM OF LARGE INTESTINE Status: Chronic Comment: s/p colectomy (6) H/O malignant neoplasm of uterine body Code(s): Z85.42 - PERSONAL HISTORY OF MALIGNANT NEOPLASM OF OTH PRT UTERUS Status: Chronic Comment: s/p hystrectomy (7) Crohn disease Code(s): K50.90 - CROHN'S DISEASE, UNSPECIFIED, WITHOUT COMPLICATIONS Status: Chronic (8) Hep C w/o coma, chronic Code(s): B18.2 - CHRONIC VIRAL HEPATITIS C Status: Chronic (9) Anxiety and depression Code(s): F41.8 - OTHER SPECIFIED ANXIETY DISORDERS Status: Chronic (10) DM2 (diabetes mellitus, type 2) Status: Chronic (11) HTN (hypertension) Code(s): I10 - ESSENTIAL (PRIMARY) HYPERTENSION Status: Chronic - Plan DVT proph w/SCDs Clinically better and hemodynamically stable.H/H,Cr WNL. -: INR still sub therapeutic but getting higher w increased dose coumadin. -: cont BID lovenox 2 days after INR therapeutic. -: BP better.cont meds as below. -: PCCM following-appreciate input * . Review of Systems - Review of Systems Constitutional: negative: Fever, Chills, Sweats, Weakness, Malaise, Other ENT: negative: Ear Pain, Ear Discharge, Nose Pain, Nose Discharge, Nose Congestion, Mouth Pain, Mouth Swelling, Throat Pain, Throat Swelling, Other Respiratory: negative: Cough, Dry, Shortness of Breath, Hemoptysis, SOB with Excertion, Pleuritic Pain, Sputum, Wheezing Cardiovascular: negative: Chest Pain, Palpitations, Orthopnea, Paroxysmal Noc. Dyspnea, Edema, Light Headedness, Other Gastrointestinal: negative: Nausea, Vomiting, Abdominal Pain, Diarrhea, Constipation, Melena, Hematochezia, Other Genitourinary: negative: Dysuria, Frequency, Incontinence, Hematuria, Retention , Other Musculoskeletal: negative: Neck Pain, Shoulder Pain, Arm Pain, Back Pain, Hand Pain, Leg Pain, Foot Pain, Other Neurological: negative: Weakness, Numbness, Incoordination, Change in Speech, Confusion, Seizures, Other - Medications/Allergies Allergies/Adverse Reactions: Allergies Allergy/AdvReac Type Severity Reaction Status Date / Time iodine Allergy Severe Anaphylaxis Verified 09/06/17 22:51 clarithromycin [From Biaxin] Allergy Rash Verified 09/06/17 22:51 Medications: Current Medications Acetaminophen/Codeine Phosphate (Tylenol #3) 1 tab PO Q6H PRN PRN Reason: Pain Last Admin: 09/12/17 08:27 Dose: 1 tab Albuterol Sulfate (Albuterol Sulfate) 1.25 mg NEB Q2H PRN PRN Reason: Wheezing Albuterol/Ipratropium (Duoneb) 3 ml NEB [id number] [facility] Last Admin: 09/12/17 07:19 Dose: Not Given Alprazolam (Xanax) 0.5 mg PO TIDPRN PRN PRN Reason: Anxiety Last Admin: 09/12/17 08:31 Dose: 0.5 mg Amlodipine Besylate (Norvasc) 5 mg PO DAILY [facility] Last Admin: 09/12/17 08:27 Dose: 5 mg Citalopram Hydrobromide (Celexa) 20 mg PO DAILY [facility] Last Admin: 09/12/17 08:27 Dose: 20 mg Enoxaparin Sodium (Lovenox) 70 mg SC 0900,2100 [facility] Last Admin: 09/12/17 08:28 Dose: 70 mg Hydralazine HCl (Apresoline) 10 mg SLOW IVP Q6H PRN PRN Reason: SBP Greater Than 170 Last Admin: 09/07/17 20:38 Dose: 10 mg Hydralazine HCl (Apresoline) 25 mg PO QIDPRN PRN PRN Reason: SBP Greater Than 180 Loperamide HCl (Imodium) 2 mg PO Q4H PRN PRN Reason: Diarrhea/Loose Stools Miscellaneous Medication (Pharmacy To Dose) 0 each PO ASDIR PRN PRN Reason: Pharmacy to Dose WARFARIN Risperidone (Risperidone) 2 mg PO BID [facility] Last Admin: 09/12/17 08:27 Dose: 2 mg Saccharomyces Boulardii (Florastor) 250 mg PO DAILY [facility] Last Admin: 09/12/17 08:27 Dose: 250 mg Sodium Chloride (Flush - Normal Saline) 10 ml IVF Q12HR [facility] Last Admin: 09/12/17 08:36 Dose: Not Given Sodium Chloride (Flush - Normal Saline) 10 ml IVF PRN PRN PRN Reason: Saline Flush Last Admin: 09/07/17 23:45 Dose: 10 ml Trazodone HCl (Desyrel) 50 mg PO HSPRN PRN PRN Reason: Insomnia Warfarin Sodium (Coumadin) 7.5 mg PO 1700 [facility] Last Admin: 09/11/17 16:23 Dose: 7.5 mg Zolpidem Tartrate (Ambien) 5 mg PO HS PRN PRN Reason: Insomnia Last Admin: 09/11/17 20:34 Dose: 5 mg
--- NOTE | 2017-09-12 14:14 | PRG ---
DATE OF SERVICE: 09/12/2017 SUBJECTIVE: She has no acute complaints today. OBJECTIVE: VITAL SIGNS: Temperature 98.5, pulse 73, respirations 16, blood pressure 144/63. HEENT: Unremarkable. LUNGS: She has mild end-expiratory wheezing bilaterally. CARDIAC: S1 and S2 regular. ABDOMEN: Soft. EXTREMITIES: No edema. LABORATORY DATA: Demonstrates an INR of 1.6. ASSESSMENT: 1. Pulmonary embolism. 2. Lung cancer. 3. Chronic obstructive pulmonary disease. PLAN: Continue Coumadin and enoxaparin. Enoxaparin can be stopped when INR is greater than 2. Hope fully, this will be soon. She will be rechecked by our service on Thursday if she is still in the hosp [facility].
[2017-09-12] MEDS: Warfarin Sodium 7.5 MG TAB PO SCH (17:13)
[2017-09-12] MEDS: Zolpidem Tartrate 5 MG TAB PO PRN (21:15)
[2017-09-13] MEDS: ALPRAZolam 0.5 MG TAB PO PRN ×3 (00:53→15:46)
[2017-09-13 05:14] LABS: Hematocrit 35.6 % (36.0-47.0)
[2017-09-13 05:32] LABS: Calc. Creatinine Clearance 96 mL/min (70-130); Estimated GFR-MDRD Greater than 90
[2017-09-13] MEDS: Saccharomyces boulardii 250 MG CAP PO SCH (08:08)
[2017-09-13] MEDS: Citalopram 20 MG TAB PO SCH (08:09)
[2017-09-13] MEDS: risperiDONE 1 MG TAB PO SCH ×2 (08:09→19:46)
[2017-09-13] MEDS: Amlodipine 5 MG TAB PO SCH (08:09)
[2017-09-13] MEDS: Enoxaparin Sodium 80 MG/0.8 ML SYRINGE SC SCH ×2 (08:10→19:48)
[2017-09-13] MEDS: Acetaminophen/Codeine 30-300mg Tablet PO PRN ×3 (09:40→21:03)
--- NOTE | 2017-09-13 11:40 | PDOC.PN ---
- Subjective Encounter Start Date: 09/13/17 Encounter Start Time: 11:38 Subjective: feels well. no chest pain/sob/darling - Objective MAR Reviewed: Yes Vital Signs & Weight: Vital Signs (12 hours) Temp Pulse Resp BP BP Pulse Ox 09/13/17 08:09 75 143/70 H 09/13/17 07:45 98.4 F 73 16 97 09/13/17 07:30 97.6 F 76 20 143/70 H 96 09/13/17 07:12 73 16 97 09/13/17 03:27 98.4 F 78 20 105/52 L 94 L 09/12/17 23:51 94 L Weight Admit Weight 167 lb 9.6 oz Weight 146 lb 4.8 oz I&O: 09/12/17 09/13/17 09/14/17 06:59 06:59 06:59 Intake Total 240 1080 Output Total 700 1800 Balance -460 -720 Result Diagrams: 09/13/17 04:33 09/13/17 04:33 Additional Labs: Microbiology 09/12/17 10:30 Stool C. difficile [facility]DH Antigen & Toxins - Final Laboratory Tests 09/08/17 09/09/17 09/10/17 12:01 04:35 04:44 INR 1.1 1.0 1.1 09/11/17 09/12/17 09/13/17 04:59 04:17 04:33 INR 1.3 1.6 1.8 Phys Exam - Physical Examination Constitutional: NAD HEENT: PERRLA, moist MMs, sclera anicteric, oral pharynx no lesions Neck: no nodes, no JVD, supple, full ROM Respiratory: no wheezing, no rales, no rhonchi, clear to auscultation bilateral Cardiovascular: RRR, no significant murmur, no rub, gallop Gastrointestinal: soft, non-tender, no distention, positive bowel sounds Musculoskeletal: no edema, pulses present Neurological: non-focal, normal sensation, moves all 4 limbs Psychiatric: normal affect, A&O x 3 Skin: no rash Dx/Plan (1) Pulmonary embolism Code(s): I26.99 - OTHER PULMONARY EMBOLISM WITHOUT ACUTE COR PULMONALE Status : Acute Comment: on AC with coumadin and lovenox bridge (2) COPD exacerbation Code(s): J44.1 - CHRONIC OBSTRUCTIVE PULMONARY DISEASE W (ACUTE) EXACERBATION Status: Acute (3) IVC thrombosis Code(s): I82.220 - ACUTE EMBOLISM AND THROMBOSIS OF INFERIOR VENA CAVA Status : Acute (4) Adenocarcinoma, lung Code(s): C34.90 - MALIGNANT NEOPLASM OF UNSP PART OF UNSP BRONCHUS OR LUNG Status: Acute (5) H/O malignant neoplasm of colon Code(s): Z85.038 - PERSONAL HISTORY OF MALIGNANT NEOPLASM OF LARGE INTESTINE Status: Chronic Comment: s/p colectomy (6) H/O malignant neoplasm of uterine body Code(s): Z85.42 - PERSONAL HISTORY OF MALIGNANT NEOPLASM OF OTH PRT UTERUS Status: Chronic Comment: s/p hystrectomy (7) Crohn disease Code(s): K50.90 - CROHN'S DISEASE, UNSPECIFIED, WITHOUT COMPLICATIONS Status: Chronic (8) Hep C w/o coma, chronic Code(s): B18.2 - CHRONIC VIRAL HEPATITIS C Status: Chronic (9) Anxiety and depression Code(s): F41.8 - OTHER SPECIFIED ANXIETY DISORDERS Status: Chronic (10) DM2 (diabetes mellitus, type 2) Status: Chronic (11) HTN (hypertension) Code(s): I10 - ESSENTIAL (PRIMARY) HYPERTENSION Status: Chronic - Plan DVT proph w/SCDs cont coumadin w lovenox bridging.Monitor INR. -: add Nicotine patch.pt going of the floor to smoke. -: hemodynamically stable.BP slightly higher.cont norvasc. -: symptomatic & suportive care. -: Coumadin clinic on DC. * . Review of Systems - Review of Systems Constitutional: negative: Fever, Chills, Sweats, Weakness, Malaise, Other Respiratory: negative: Cough, Dry, Shortness of Breath, Hemoptysis, SOB with Excertion, Pleuritic Pain, Sputum, Wheezing Cardiovascular: negative: Chest Pain, Palpitations, Orthopnea, Paroxysmal Noc. Dyspnea, Edema, Light Headedness, Other Gastrointestinal: negative: Nausea, Vomiting, Abdominal Pain, Diarrhea, Constipation, Melena, Hematochezia, Other Genitourinary: negative: Dysuria, Frequency, Incontinence, Hematuria, Retention , Other Musculoskeletal: negative: Neck Pain, Shoulder Pain, Arm Pain, Back Pain, Hand Pain, Leg Pain, Foot Pain, Other Neurological: negative: Weakness, Numbness, Incoordination, Change in Speech, Confusion, Seizures, Other - Medications/Allergies Allergies/Adverse Reactions: Allergies Allergy/AdvReac Type Severity Reaction Status Date / Time iodine Allergy Severe Anaphylaxis Verified 09/06/17 22:51 clarithromycin [From Biaxin] Allergy Rash Verified 09/06/17 22:51 Medications: Current Medications Acetaminophen/Codeine Phosphate (Tylenol #3) 1 tab PO Q6H PRN PRN Reason: Pain Last Admin: 09/13/17 09:40 Dose: 1 tab Albuterol Sulfate (Albuterol Sulfate) 1.25 mg NEB Q2H PRN PRN Reason: Wheezing Albuterol/Ipratropium (Duoneb) 3 ml NEB [id number] [facility] Last Admin: 09/13/17 07:12 Dose: 3 ml Alprazolam (Xanax) 0.5 mg PO TIDPRN PRN PRN Reason: Anxiety Last Admin: 09/13/17 08:10 Dose: 0.5 mg Amlodipine Besylate (Norvasc) 5 mg PO DAILY [facility] Last Admin: 09/13/17 08:09 Dose: 5 mg Citalopram Hydrobromide (Celexa) 20 mg PO DAILY [facility] Last Admin: 09/13/17 08:09 Dose: 20 mg Enoxaparin Sodium (Lovenox) 70 mg SC 0900,2100 [facility] Last Admin: 09/13/17 08:10 Dose: 70 mg Hydralazine HCl (Apresoline) 10 mg SLOW IVP Q6H PRN PRN Reason: SBP Greater Than 170 Last Admin: 09/07/17 20:38 Dose: 10 mg Hydralazine HCl (Apresoline) 25 mg PO QIDPRN PRN PRN Reason: SBP Greater Than 180 Loperamide HCl (Imodium) 2 mg PO Q4H PRN PRN Reason: Diarrhea/Loose Stools Miscellaneous Medication (Pharmacy To Dose) 0 each PO ASDIR PRN PRN Reason: Pharmacy to Dose WARFARIN Nicotine (Nicoderm Patch) 7 mg TD Q24HR [facility] Risperidone (Risperidone) 2 mg PO BID [facility] Last Admin: 09/13/17 08:09 Dose: 2 mg Saccharomyces Boulardii (Florastor) 250 mg PO DAILY [facility] Last Admin: 09/13/17 08:08 Dose: 250 mg Sodium Chloride (Flush - Normal Saline) 10 ml IVF Q12HR [facility] Last Admin: 09/13/17 08:10 Dose: Not Given Sodium Chloride (Flush - Normal Saline) 10 ml IVF PRN PRN PRN Reason: Saline Flush Last Admin: 09/07/17 23:45 Dose: 10 ml Trazodone HCl (Desyrel) 50 mg PO HSPRN PRN PRN Reason: Insomnia Warfarin Sodium (Coumadin) 7.5 mg PO 1700 [facility] Last Admin: 09/12/17 17:13 Dose: 7.5 mg Zolpidem Tartrate (Ambien) 5 mg PO HS PRN PRN Reason: Insomnia Last Admin: 09/12/17 21:15 Dose: 5 mg
[2017-09-13] MEDS: Nicotine 7 MG PATCH TD SCH (12:55)
[2017-09-13] MEDS: Warfarin Sodium 7.5 MG TAB PO SCH (17:17)
[2017-09-13] MEDS: Zolpidem Tartrate 5 MG TAB PO PRN (19:46)
[2017-09-14] MEDS: ALPRAZolam 0.5 MG TAB PO PRN ×3 (00:26→19:40)
[2017-09-14 05:00] LABS: Prothrombin Time 22.3 SEC (12.0-14.7)
[2017-09-14] MEDS: Acetaminophen/Codeine 30-300mg Tablet PO PRN ×3 (06:37→19:40)
[2017-09-14] MEDS: risperiDONE 1 MG TAB PO SCH ×2 (09:14→19:40)
[2017-09-14] MEDS: Saccharomyces boulardii 250 MG CAP PO SCH (09:14)
[2017-09-14] MEDS: Citalopram 20 MG TAB PO SCH (09:15)
[2017-09-14] MEDS: Amlodipine 5 MG TAB PO SCH (09:15)
[2017-09-14] MEDS: Enoxaparin Sodium 80 MG/0.8 ML SYRINGE SC SCH ×2 (09:15→19:39)
[2017-09-14] MEDS: Nicotine 7 MG PATCH TD SCH (13:20)
[2017-09-14] MEDS: Warfarin Sodium 7.5 MG TAB PO SCH (17:06)
[2017-09-14] MEDS: Zolpidem Tartrate 5 MG TAB PO PRN (19:40)
[2017-09-15 05:16] LABS: Hematocrit 36.5 % (36.0-47.0)
[2017-09-15 05:24] LABS: Prothrombin Time 23.6 SEC (12.0-14.7)
[2017-09-15 05:36] LABS: Calc. Creatinine Clearance 100 mL/min (70-130); Estimated GFR-MDRD Greater than 90
[2017-09-15] MEDS: Amlodipine 5 MG TAB PO SCH (09:47)
[2017-09-15] MEDS: Citalopram 20 MG TAB PO SCH (09:47)
[2017-09-15] MEDS: Enoxaparin Sodium 80 MG/0.8 ML SYRINGE SC SCH ×2 (09:48→17:56)
[2017-09-15] MEDS: risperiDONE 1 MG TAB PO SCH (09:50)
[2017-09-15] MEDS: Saccharomyces boulardii 250 MG CAP PO SCH (09:50)
[2017-09-15] MEDS: ALPRAZolam 0.5 MG TAB PO PRN (09:51)
[2017-09-15] MEDS: Acetaminophen/Codeine 30-300mg Tablet PO PRN ×2 (09:51→17:05)
[2017-09-15] MEDS: Nicotine 7 MG PATCH TD SCH (13:14)
[2017-09-15 14:10] VITALS: BMI 28.7
[2017-09-15 15:25] VITALS: BP 146/79; TEMP 99
--- NOTE | 2017-09-15 16:54 | PRG ---
DATE OF SERVICE: 09/15/2017 SERVICE: Pulmonary Medicine. INTERVAL HISTORY: The patient is doing fine from a respiratory standpoint. She denies any current f ab, chills, nausea, vomiting or shortness of breath. She has essentially returned to her usual [facility] and has no specific complaints. Her INR this morning is within therapeutic range. PHYSICAL EXAMINATION: VITAL SIGNS: Afebrile, pulse 92, blood pressure 146/79, respirations 18, saturation 92% on room air. GENERAL: The patient is awake, alert, no apparent distress. LUNGS: Excellent air entry. Slightly prolonged expiratory phase, but no wheezing, rhonchi, or crack les appreciated. HEART: Normal rate, regular. ABDOMEN: Soft, nontender, nondistended, bowel sounds positive. MUSCULOSKELETAL: No cyanosis or clubbing. There is no pitting in the bilateral lower extremities. NEUROLOGIC: Grossly nonfocal. LABORATORY DATA: INR 2.0 this morning. ASSESSMENT: 1. Acute hypoxic respiratory failure, resolved. 2. Acute pulmonary embolism. 3. Chronic obstructive pulmonary disease without current exacerbation. 4. Lung cancer. PLAN: From my perspective, the patient is stable for transition out of the hospital. I will continu e to follow while she remains in house. She will need to follow up with Coumadin Clinic in the outpa tient setting.
--- NOTE | 2017-09-15 17:01 | PRG ---
DATE OF SERVICE: 09/14/2017 SERVICE: Pulmonary Medicine. INTERVAL HISTORY: The patient is doing really well from a respiratory standpoint. We are just simpl y waiting for INR to return into the therapeutic range. She denies any current fevers, chills, nause a, vomiting or chest discomfort. Otherwise, there were no overnight events. PHYSICAL EXAMINATION: VITAL SIGNS: Afebrile, pulse 92, blood pressure 146/79, respirations 18, saturation 92% on room air. GENERAL: The patient is awake, alert, in no apparent distress. LUNGS: Excellent air entry with mildly prolonged expiratory phase, but I do not appreciate wheezing, rhonchi, or crackles today. HEART: Normal rate, regular. ABDOMEN: Soft, nontender, nondistended. Bowel sounds positive. MUSCULOSKELETAL: No cyanosis or clubbing. No pitting in the bilateral lower extremities. NEUROLOGIC: Grossly nonfocal. LABORATORY DATA: INR 1.9. Hemoglobin 12.1, platelets are 354,000. Creatinine 0.65. ASSESSMENT: 1. Chronic obstructive pulmonary disease without current exacerbation. 2. Acute pulmonary embolism, small and bilateral. 3. Acute hypoxic respiratory failure, resolved. 4. Lung cancer. PLAN: We are waiting for to become therapeutic on her Coumadin. From my perspective, once this happ ens for a period of 24 hours, she will be stable for transition out of the hospital provided that she has close followup with the Coumadin clinic. We are still working on getting her into surgery in [facility] in the outpatient setting to determine whether or not she is going to be a candidate for lung r eduction surgery, which could be potentially curative. I will continue to follow while she remains i n the hospital.
[2017-09-15] MEDS: Warfarin Sodium 7.5 MG TAB PO SCH (17:06)
--- NOTE | 2017-09-15 21:04 | DIS ---
DATE OF ADMISSION: 09/06/2017 DATE OF DISCHARGE: 09/15/2017 PRIMARY CARE PHYSICIAN: Dr. Marley. CONDITION AT THE TIME OF DISCHARGE: Stable and good. DISCHARGE DISPOSITION: Home. DISCHARGE DIAGNOSES: 1. Pulmonary embolism. 2. Acute chronic obstructive pulmonary disease exacerbation. 3. Inferior vena cava thrombosis. 4. Adenocarcinoma of the lung. 5. History of colon cancer. 6. History of uterine cancer, status post hysterectomy. 7. History of Crohn's disease. 8. History of chronic hepatitis C. 9. Tobacco abuse. 10. Diabetes. 11. Hypertension. 12. Anxiety and depression. DISCHARGE MEDICATIONS: As follows, albuterol inhaler as needed, risperidone 2 mg p.o. b.i.d., Celexa 20 mg daily, hydroxyzine 50 mg p.o. b.i.d. p.r.n., trazodone 50 mg at bedtime p.r.n., Coumadin 7.5 m g daily, nicotine patch 14 mg every day, Norvasc 5 mg daily. PROCEDURES DONE IN THE HOSPITAL: Include, 1. Chest x-ray upon presentation, which showed right hilar mass and left lower lobe pulmonary nodule measuring [address] scan of the abdomen and pelvis on 09/06/2017, which showed large volume thrombus in the inferi or vena cava, measuring 6 cm in length extending into the pelvic veins with inflammatory stranding ar ound the deep internal (01:31) likely sequelae of the thrombus. 3. CT angio of the thorax on 09/06/2017, which showed bilateral lower lobe segmental pulmonary arter ial filling defects with hemorrhage within the lateral basal segment right lower lobe, likely sequela e of the pulmonary infarction. Right hilar malignancy and (01:52) emphysematous changes also se en. 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 4. Lower extremity ultrasound bilateral, which is negative for any DVT. CONSULTATIONS: In-house include, 1. Hematology/Oncology. 2. Pulmonary Medicine, Dr. Dale and Dr. Bah. HISTORY OF PRESENT ILLNESS: Ms. Steel is a pleasant 61-year-old female with history of right-side d stage 4 lung cancer, currently awaiting treatment as well as COPD, hypertension, Crohn's disease, a nd tobacco abuse, who presented to the emergency room with complaints of worsening dyspnea with minim al exertion. Upon presentation, the patient underwent a CT scan of the chest, abdomen, and pelvis w ith findings as mentioned above. She had bilateral lower lobe segmental pulmonary embolism as well a s large volume thrombus in the inferior vena cava. She was started on anticoagulation with b.i.d. 1 mg/kg dose of Lovenox and was admitted for further evaluation. Hematology/Oncology was consulted. S he was also diagnosed with having acute exacerbation of COPD and was started on IV steroids. Please see admission history and physical for further details. Her D-dimer was 3.10. Upon presentation, sh e was 94% oxygen saturation on 3 liters. HOSPITAL COURSE: The patient was continued on b.i.d. dosing of Lovenox. Oncology and Pulmonary team s saw the patient and started her on Coumadin along with Lovenox. She was monitored in the hospital until her INR was therapeutic and above 2. On the day of discharge, her INR is 2. The plan is for [facility] patient to follow up with primary care physician and Coumadin Clinic. She will receive today's da te of b.i.d., Lovenox prior to discharge. She otherwise remained totally hemodynamically stable in [facility] hospital and had no reoccurrence of her dyspnea. She was off of oxygen and walking in the hallway s for the last several days. She was going downstairs for smoking too, but later agreed to use a sunil otine patch. With regards to her pulmonary malignancy, she will follow up with Dr. Carrasco in 2 weeks for now and the plan is for her to go see Dr. Roper at [facility] for possible curative surgery. On the day of discharge, she was seen and examined and is hemodynamically stable. PHYSICAL EXAMINATION: VITAL SIGNS: Temperature 97.5, pulse of 80, respirations 20, saturating 94% on room air, blood press ure 141/73. GENERAL: No acute distress, awake, alert, and oriented x3. CHEST: Clear to auscultation without any wheezing, rales or rhonchi. Rhythm is regular without any murmur, rubs or gallops. LABORATORY DATA: Hemoglobin 12, hematocrit 36.5, platelet count of 346. INR is 2.0. Serum chemistr ies show a creatinine of 0.65. At this time, C. difficile was checked because of the complaints of d iarrhea and antigen and toxin were negative. At this time, the patient was set up with her primary care physician, Dr. Marley at [facility] and appointment was made. The patient will see Dr. Marley on 09/24/2017 at 10:30 a.m. She was given pr escriptions for Coumadin at 7.5 mg as well as 5 mg. For now, she will take 7.5 mg daily, which she w as receiving here in the hospital. She will get her PT/INR done every 2 days with results to both do ctors, Dr. Carrasco and Dr. Marley. She will keep up all of her appointments including the Coumadin Clinic, which was set up for her. She is instructed to come back to the emergency room if her symptoms recur. She verbalized jessica greenfield. Total time spent in the discharge of this patient 32 minutes.
== END 2017-09-15 18:09 | disposition home or self-care (01) | DRG 175 ==
LOC: ERS 16:34 → 2SE 21:48
PROVIDERS: ADMIT Internal Medicine; ATTEND Internal Medicine
DX: I26.99 Other pulmonary embolism without acute cor pulmonale (principal); I82.220 Acute embolism and thrombosis of inferior vena cava; J96.01 Acute respiratory failure with hypoxia; J44.1 Chronic obstructive pulmonary disease with (acute) exacerbation; K50.90 Crohn's disease, unspecified, without complications; C34.31 Malignant neoplasm of lower lobe, right bronchus or lung; F17.210 Nicotine dependence, cigarettes, uncomplicated; E11.9 Type 2 diabetes mellitus without complications; I10 Essential (primary) hypertension; F41.9 Anxiety disorder, unspecified; F32.9 Major depressive disorder, single episode, unspecified; Z59.0 Homelessness; Z85.038 Personal history of other malignant neoplasm of large intestine; Z85.42 Personal history of malignant neoplasm of other parts of uterus; Z83.2 Family history of diseases of the blood and blood-forming organs and certain disorders involving the immune mechanism; B18.2 Chronic viral hepatitis C
CPT/HCPCS: 36415; 71010; 71275; 74177; 80053; 81003; 82553; 82565; 83605; 83690; 83735; 83880; 84484; 85014; 85018; 85025; 85049; 85379; 85610; 87324; 87449; 93005; 93970; 94640; 96372; 96374; 96375; A4216; J0360; J1200; J1650; J2270; J2930; J7620; S0028

== ENCOUNTER 2017-09-19 12:29 | Emergency (ER) | payer MEDICARE, MEDICAID ==
[2017-09-19] MEDS ORDERED: Ketorolac Tromethamine 30 MG/ML VIAL ONE (13:26)
[2017-09-19 14:15] LABS: #Eosinphils 0.1 thou/uL (0.0-0.7); #Lymphocytes 1.5 thou/uL (1.20-3.40); #Monocytes 0.7 thou/uL (0.11-0.59); #Neutrophils 7.4 thou/uL (1.40-6.50); %Basophils 0.2 % (0.0-1.0); %Eosinophils 1.4 % (0.0-10.0); %Monocytes 7.5 % (0.0-10.0); Hematocrit 35.4 % (36.0-47.0); Mean Platelet Volume 6.4 fL (7.4-10.4); White Blood Cell (WBC) Count 9.7 thou/uL (4.8-10.8)
[2017-09-19 14:22] LABS: Prothrombin Time 29.6 SEC (12.0-14.7)
[2017-09-19 14:36] LABS: ALT (SGPT) 30 U/L (8-55); AST (SGOT) 24 U/L (5-34); Alkaline Phosphatase 68 U/L (40-150); Anion Gap 11 mmol/L (10-20); BUN (Urea Nitrogen) 8 mg/dL (9.8-20.1); Bilirubin, Total 0.2 mg/dL (0.2-1.2); Calc. Creatinine Clearance 0 mL/min (70-130); Carbon Dioxide 25 mmol/L (22-29); Chloride 105 mmol/L (98-107); Estimated GFR-MDRD Greater than 90; Globulin 3.3 g/dL (2.4-3.5); Protein, Total 6.8 g/dL (6.0-8.3)
[2017-09-19 14:42] LABS: Troponin I Less than 0.010 ng/mL (< 0.028)
--- NOTE | 2017-09-19 14:45 | RAD ---
RADIOGRAPH CHEST 1 VIEW: Date: 09/19/17. Time: 12:55 p.m. HISTORY: A 61-year-old female with dyspnea and chest pain. COMPARISON: 09/06/17. FINDINGS: Right hilar mass represents the lung cancer demonstrated on previous CT angiogram of the chest of , and PET scan of 09/01/17. Cardiac size is at the upper limits of normal, apparently slightly larger than previously, perhaps due to inspirational and positional differences. No pulmonary edema or pneumothorax. The lateral costophrenic angle are sharp. No consolidation. No other interval kendal nge. IMPRESSION: 1. Right hilar lung cancer. 2. No acute findings. GISELA [] POS: MARIA GUADALUPE
[2017-09-19] MEDS ORDERED: Morphine 4 MG/ML VIAL ONE (14:59)
[2017-09-19] MEDS ORDERED: Ondansetron HCl/PF 4 MG/2 ML Vial ONE (14:59)
--- NOTE | 2017-10-16 13:26 | EKG ---
Test Reason : Blood Pressure : / mmHG Vent. Rate : 085 BPM Atrial Rate : 085 BPM P-R Int : 158 ms QRS Dur : 092 ms QT Int : 402 ms P-R-T Axes : 053 016 062 degrees QTc Int : 478 ms Normal sinus rhythm Nonspecific ST and T wave abnormality Abnormal ECG Confirmed by REJI NÚÑEZ ([id number]), web editor FLORINDA SCHWARZ ([id number]) on 10/16/2017 1:26:10 PM Referred By: Confirmed By:REJI NÚÑEZ
== END 2017-09-19 15:15 | disposition home or self-care (01) ==
LOC: ERS 12:29
DX: R07.9 Chest pain, unspecified (principal); I10 Essential (primary) hypertension; J45.909 Unspecified asthma, uncomplicated; K58.9 Irritable bowel syndrome, unspecified; F41.9 Anxiety disorder, unspecified; F32.9 Major depressive disorder, single episode, unspecified; F17.210 Nicotine dependence, cigarettes, uncomplicated; Z79.891 Long term (current) use of opiate analgesic; Z79.01 Long term (current) use of anticoagulants; Z79.899 Other long term (current) drug therapy
CPT/HCPCS: 36415; 71010; 80053; 82553; 84484; 85025; 85610; 93005; 96374; 96375; J1885; J2270; J2405

== ENCOUNTER 2017-11-10 12:32 | Emergency (ER) | payer MEDICARE, MEDICAID ==
[2017-11-10 13:19] LABS: #Eosinphils 0.1 thou/uL (0.0-0.7); #Lymphocytes 1.6 thou/uL (1.20-3.40); #Monocytes 0.5 thou/uL (0.11-0.59); #Neutrophils 3.6 thou/uL (1.40-6.50); %Basophils 0.2 % (0.0-1.0); %Eosinophils 2.5 % (0.0-10.0); %Monocytes 8.7 % (0.0-10.0); %Neutrophils 61.5 % (42.0-75.0); Mean Corpuscular HGB CONC 31.7 g/dL (32.0-36.0); Mean Corpuscular Hemoglobin 26.4 pg (27.0-31.0); Mean Corpuscular Volume 83.1 fl (81.0-99.0); Mean Platelet Volume 6.3 fL (7.4-10.4); Platelet Count 280 thou/uL (130-400); RBC Distribution Width 13.7 % (11.5-14.5); Red Blood Cell (RBC) Count 4.92 mill/uL (4.20-5.40); White Blood Cell (WBC) Count 5.9 thou/uL (4.8-10.8)
[2017-11-10 13:41] LABS: ALT (SGPT) 31 U/L (8-55); AST (SGOT) 27 U/L (5-34); Albumin 4.1 g/dL (3.5-5.0); Alkaline Phosphatase 64 U/L (40-150); Anion Gap 12 mmol/L (10-20); BUN (Urea Nitrogen) 11 mg/dL (9.8-20.1); Bilirubin, Total 0.2 mg/dL (0.2-1.2); CK (CPK) 98 U/L (29-168); Calc. Creatinine Clearance 0 mL/min (70-130); Calcium 9.4 mg/dL (7.8-10.44); Carbon Dioxide 28 mmol/L (22-29); Chloride 100 mmol/L (98-107); Estimated GFR-MDRD 71; Globulin 3.5 g/dL (2.4-3.5); Glucose 107 mg/dL (70-105); Lipase 10 U/L (8-78); Potassium 3.9 mmol/L (3.5-5.1); Protein, Total 7.6 g/dL (6.0-8.3); Sodium 136 mmol/L (136-145)
[2017-11-10 13:45] LABS: CKMB 2.1 ng/mL (0-6.6); Troponin I 0.015 ng/mL (< 0.028)
[2017-11-10] MEDS ORDERED: Ketorolac Tromethamine 30 MG/ML VIAL ONE (13:47)
--- NOTE | 2017-11-10 14:11 | RAD ---
RADIOGRAPH CHEST 2 VIEWS: Date: 11-10-17 Time: 2:45 p.m. HISTORY: 61-year-old female with chest pain. COMPARISON: 09-19-17 FINDINGS: The previously demonstrated right hilar mass has increased in size, with greater degree of spiculatio n extending into the right perihilar lung tissue. The lateral view demonstrates associated subsegment al atelectasis posterior to the mass, either in the superior segment of the right lower lobe or poste rior segment of right upper lobe. There is no consolidation or airspace disease otherwise. No mediast inal widening. No cardiopulmonary. No pleural effusion or pneumothorax. IMPRESSION: 1. Interval increase in size of the right hilar/perihilar primary lung cancer, with associated mild s ubsegmental atelectasis. 2. No evidence of pneumonia or pulmonary edema. GISELA POS: MARIA GUADALUPE
[2017-11-10] MEDS ORDERED: Morphine 4 MG/ML Carpuject ONE (15:52)
== END 2017-11-10 16:05 | disposition home or self-care (01) ==
LOC: ERS 12:32
DX: J06.9 Acute upper respiratory infection, unspecified (principal); K50.90 Crohn's disease, unspecified, without complications; I10 Essential (primary) hypertension; J45.909 Unspecified asthma, uncomplicated; F41.9 Anxiety disorder, unspecified; F32.9 Major depressive disorder, single episode, unspecified; F17.290 Nicotine dependence, other tobacco product, uncomplicated; F17.210 Nicotine dependence, cigarettes, uncomplicated; Z71.6 Tobacco abuse counseling
CPT/HCPCS: 36415; 71046; 80053; 82550; 82553; 83690; 84484; 85025; 93005; 94640; 96361; 96374; 96375; 99406; J1885; J2270; J7620

== ENCOUNTER 2017-11-18 15:46 | Inpatient (IN) | payer MEDICARE, MEDICAID ==
--- NOTE | 2017-11-18 16:40 | RAD ---
CHEST ONE VIEW 11/18/17 HISTORY: Dyspnea. COMPARISON: 11/10/17. FINDINGS: Cardiac silhouette is magnified by projection. Pulmonary vasculature is upper limits of normal. Right hilar mass is now partially obscured by increasing right upper lobe and perihilar infiltrate. Medias tinum remains midline. Left lung is well inflated. IMPRESSION: Increasing infiltrate within the right lung, especially the right upper lobe, predominantly obscuring the right hilar mass. POS: QUIANA
[2017-11-18 17:09] LABS: #Eosinphils 0.1 thou/uL (0.0-0.7); #Lymphocytes 1.6 thou/uL (1.20-3.40); #Monocytes 0.5 thou/uL (0.11-0.59); #Neutrophils 3.3 thou/uL (1.40-6.50); %Basophils 0.7 % (0.0-1.0); %Eosinophils 2.2 % (0.0-10.0); %Monocytes 9.7 % (0.0-10.0); %Neutrophils 59.4 % (42.0-75.0); Hemoglobin 8.2 g/dL (12.0-16.0); Mean Corpuscular HGB CONC 32.8 g/dL (32.0-36.0); Mean Corpuscular Hemoglobin 27.1 pg (27.0-31.0); Mean Corpuscular Volume 82.7 fl (81.0-99.0); Mean Platelet Volume 6.3 fL (7.4-10.4); Platelet Count 315 thou/uL (130-400); RBC Distribution Width 14.3 % (11.5-14.5); Red Blood Cell (RBC) Count 3.03 mill/uL (4.20-5.40); White Blood Cell (WBC) Count 5.6 thou/uL (4.8-10.8)
[2017-11-18] MEDS ORDERED: Albuterol Sulfate 2.5 mg/0.5 ml Neb ONE ×2 (17:31)
[2017-11-18 17:35] LABS: ALT (SGPT) 20 U/L (8-55); AST (SGOT) 23 U/L (5-34); Albumin 3.5 g/dL (3.5-5.0); Alkaline Phosphatase 51 U/L (40-150); Anion Gap 12 mmol/L (10-20); BUN (Urea Nitrogen) 7 mg/dL (9.8-20.1); Bilirubin, Total 0.6 mg/dL (0.2-1.2); CK (CPK) 106 U/L (29-168); Calc. Creatinine Clearance 0 mL/min (70-130); Calcium 8.8 mg/dL (7.8-10.44); Carbon Dioxide 26 mmol/L (22-29); Chloride 103 mmol/L (98-107); Estimated GFR-MDRD Greater than 90; Globulin 2.9 g/dL (2.4-3.5); Glucose 108 mg/dL (70-105); Potassium 3.5 mmol/L (3.5-5.1); Protein, Total 6.4 g/dL (6.0-8.3); Sodium 137 mmol/L (136-145)
[2017-11-18 17:36] LABS: PTT 206.3 SEC (22.9-36.1); Prothrombin Time Greater than 150.0 SEC (12.0-14.7)
[2017-11-18 17:38] LABS: CKMB 2.1 ng/mL (0-6.6); Troponin I 0.013 ng/mL (< 0.028)
[2017-11-18] MEDS ORDERED: Dexamethasone 4 mg/ml Vial ONE (18:17)
[2017-11-18] MEDS ORDERED: Cefepime 2 GM, Syringe 2.5 ML in Sterile Water 10 ML SLOW IVP SCH (18:45)
--- NOTE | 2017-11-18 20:02 | HP ---
PRIMARY CARE PHYSICIAN: [facility]. PRIMARY ACCOUNT DIRECTOR: Dr. Dale. PRIMARY ONCOLOGIST: Dr. Carrasco. CHIEF COMPLAINT: Patient was sent to the emergency room due to elevated INR. HISTORY OF PRESENT ILLNESS: Patient is a 61-year-old female with COPD, pulmonary embolism on anticoa gulation and lung cancer, presented to the emergency room with above complaints. At the Coumadin [facility] sunil, her INR was elevated. This was confirmed with outpatient lap. She was told to come to the [facility] room for evaluation of elevated INR. Patient is on Coumadin 5 mg alternating with 7.5 mg daily . She denies any recent use of antibiotic or dietary changes. She has been coughing thick mucus ove r the last 1 week with shortness of breath and wheezing. She had several close contacts with trudy lorenz. She took a flu shot and pneumonia shot. She denies any chest pain, palpitations, lightheadednes s, dizziness. She felt generally weak, fatigued and had intermittent chills. She never checked her temperature. In the emergency room, her initial vital signs showed temperature of 98.4 with respiration 18, pulse rate of 81, blood pressure of 93/69 with O2 saturation of 87% on room air. This improved with O2 sup plementation. Her chest x-ray was consistent with right-sided infiltrate. She was started on cefepi me and vancomycin. She also received nebulizer treatment with Decadron. PAST MEDICAL HISTORY: 1. COPD. 2. Ongoing tobacco abuse. 3. 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 4. Lung adenocarcinoma. 5. History of colon and uterine cancer. 6. Crohn's disease. 7. Chronic hepatitis C. 8. Diabetes mellitus type 2. 9. Hypertension. 10. Anxiety, depression. PAST SURGICAL HISTORY: 1. Colectomy. 2. Hysterectomy. 3. Cholecystectomy. ALLERGIES: IODINE and CLARITHROMYCIN. CURRENT HOME MEDICATIONS: Patient is on Celexa, Coumadin, amlodipine, risperidone. She is unable to recall the exact dosages of most of her medications. FAMILY HISTORY: Negative for premature heart disease or malignancy. SOCIAL HISTORY: She continues to smoke up to 1 pack a day. She currently lives at [facility] . She denies any alcohol or drug use. REVIEW OF SYSTEMS: The following complete review of systems was negative, unless otherwise mentioned in the HPI or below: Constitutional: Weight loss or gain, ability to conduct usual activities. Sk in: Rash, itching. Eyes: Double vision, pain. ENT/Mouth: Nose bleeding, neck stiffness, pain, te nderness. Cardiovascular: Palpitations, dyspnea on exertion, orthopnea. Respiratory: Shortness of breath, wheezing, cough, hemoptysis, fever or night sweats. Gastrointestinal: Poor appetite, abdom inal pain, heartburn, nausea, vomiting, constipation, or diarrhea. Genitourinary: Urgency, frequenc y, dysuria, nocturia. Musculoskeletal: Pain, swelling. Neurologic/Psychiatric: Anxiety, depressio n. Allergy/Immunologic: Skin rash, bleeding tendency. PHYSICAL EXAMINATION: VITAL SIGNS: As discussed above. GENERAL: A 61-year-old female in mild respiratory distress, able to complete short phrases. Hoarse voice. HEENT: Head: Atraumatic, normocephalic, sclerae are anicteric. Moist mucous membranes. No oral le leonie. NECK: Supple, no JVD appreciated. No carotid bruit. LUNGS: Showed diffuse expiratory wheezing with right-sided crackles. There were rhonchi. There was mild accessory muscle use. HEART: S1, S2 present. Regular rate and rhythm. No murmur, rubs, or gallops appreciated. ABDOMEN: Soft, nontender, bowel sounds present. EXTREMITIES: A 2+ edema in bilateral lower extremity. No calf tenderness. SKIN: Warm and dry. LYMPH NODES: No palpable lymph nodes in the neck. PERIPHERAL VASCULAR: Radial pulses palpable bilaterally. MUSCULOSKELETAL: No joint swelling or tenderness. LABORATORY FINDINGS: CBC showed WBC of 5.6 with hemoglobin 8.2, platelet count of 315. PT of greate r than 150. INR could not be calculated, PTT 206. Chemistries showed sodium 137, potassium 3.5, chl oride 103, bicarbonate 26, BUN 7, creatinine 0.65, glucose of 108. Lactic acid 1.3. BNP was negativ e. Troponin was negative. Chest x-ray by my review as discussed above. EKG by my review showed sin us rhythm with nonspecific ST-T wave changes. IMPRESSION: 1. Coagulopathy of unclear etiology. 2. Acute hypoxic respiratory failure secondary to chronic obstructive pulmonary disease exacerbation /pneumonia suspected pneumococcal. 3. History of lung cancer. 4. 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 5. Crohn's disease. 6. Diabetes mellitus type 2. 7. Hypertension. 8. Anxiety and depression. 9. Tobacco dependence. 10. Anemia. Her H&H this admission is 8.2 with hematocrit of 25.1. Her hemoglobin last week was 13 . Prior to that, it was between 11 and 12. She denies any melena or hematochezia. PLAN: The patient will be monitored on the medical floor. Empiric antibiotics for pneumonia will be continued. Influenza testing has been negative. Pulmonary will be consulted. Continue nebulizer t reatment with steroids and O2 supplementation. We will hold Coumadin. We will give her 2.5 mg vitamin K. We will monitor H&H closely. We will check stool for occult bloo d. We will resume home medications once confirmed. Patient will require 2-3 days for stabilization. Plan of care was discussed with the patient. She stated understanding.
[2017-11-18 20:09] LABS: Iron 42 ug/dL (50-170); Iron Binding Capacity, Total 341 mcg/dL (265-497)
[2017-11-18] MEDS ORDERED: Ondansetron HCl/PF 4 MG/2 ML Vial IVP PRN (20:23)
[2017-11-18] MEDS ORDERED: Dextrose 50% Abboject 50 ML SYRINGE SLOW IVP PRN (20:23)
[2017-11-18] MEDS ORDERED: Milk Of Magnesia 30 ML UDCUP PO PRN (20:23)
[2017-11-18] MEDS ORDERED: Senokot 8.6 MG TAB PO PRN (20:23)
[2017-11-18] MEDS ORDERED: hydrALAZINE 20 MG/ML VIAL SLOW IVP PRN (20:23)
[2017-11-18] MEDS ORDERED: Insulin Regular 300 UNITS/3 ML VIAL SC PRN ×2 (20:23)
[2017-11-18] MEDS ORDERED: Ondansetron ODT 4 MG TAB PO PRN (20:23)
[2017-11-18] MEDS ORDERED: Eucerin (Mineral Oil/Petrolatum,White) 30 gm Jar TOP PRN (20:23)
[2017-11-18] MEDS ORDERED: Polyethylene Glycol 3350 17 GM Packet PO PRN (20:23)
[2017-11-18] MEDS ORDERED: cloNIDine 0.1 MG TAB PO PRN (20:23)
[2017-11-18] MEDS ORDERED: Acetaminophen 325 MG TAB PO PRN (20:23)
[2017-11-18] MEDS ORDERED: Calcium Carbonate 500 MG ChewTAB PO PRN (20:23)
[2017-11-18] MEDS ORDERED: Dextrose 5% in Water 1,000 ML IV PRN (20:23)
[2017-11-18] MEDS ORDERED: Iron Sucrose Complex 200 MG in Sodium Chloride 0.9% 250 ML 250 ML IVPB SCH (20:45)
[2017-11-18] MEDS ORDERED: Phytonadione 10 MG/ML AMP PO SCH (21:00)
[2017-11-18] MEDS ORDERED: Iron Sucrose Complex 200 MG in Sodium Chloride 0.9% 100 ML IVPB SCH (21:00)
[2017-11-18] MEDS ORDERED: Cefepime 2 GM in Sodium Chloride 0.9% 100 ML IVPB SCH (21:00)
[2017-11-18] MEDS: Doxycycline 100 MG CAP PO SCH (21:43)
[2017-11-18] MEDS: Pantoprazole 40 MG VIAL IVP SCH (21:43)
[2017-11-18] MEDS: Docusate 100 MG CAP PO SCH (21:43)
[2017-11-18] MEDS: Sodium Chloride 0.9% 1,000 ML IV SCH (21:55)
[2017-11-18 22:05] VITALS: BMI 30.9
[2017-11-18] MEDS: HYDROcodone/Acetaminophen 5/325 mg Tablet PO PRN (22:24)
[2017-11-19 04:33] LABS: #Lymphocytes 0.7 thou/uL (1.20-3.40); #Monocytes 0.1 thou/uL (0.11-0.59); #Neutrophils 4.8 thou/uL (1.40-6.50); %Eosinophils 0.7 % (0.0-10.0); %Lymphocytes 11.9 % (21.0-51.0); %Monocytes 2.4 % (0.0-10.0); %Neutrophils 85.1 % (42.0-75.0); Hemoglobin 7.9 g/dL (12.0-16.0); Mean Corpuscular HGB CONC 33.2 g/dL (32.0-36.0); Mean Corpuscular Hemoglobin 27.6 pg (27.0-31.0); Mean Platelet Volume 6.2 fL (7.4-10.4); Platelet Count 315 thou/uL (130-400); RBC Distribution Width 14.4 % (11.5-14.5); Red Blood Cell (RBC) Count 2.86 mill/uL (4.20-5.40); White Blood Cell (WBC) Count 5.6 thou/uL (4.8-10.8)
[2017-11-19 04:39] LABS: Albumin 3.5 g/dL (3.5-5.0); Anion Gap 11 mmol/L (10-20); BUN (Urea Nitrogen) 7 mg/dL (9.8-20.1); BUN/Creatinine Ratio 11.11; Calc. Creatinine Clearance 112 mL/min (70-130); Calcium 8.4 mg/dL (7.8-10.44); Carbon Dioxide 24 mmol/L (22-29); Chloride 107 mmol/L (98-107); Estimated GFR-MDRD Greater than 90; Glucose 144 mg/dL (70-105); Potassium 3.4 mmol/L (3.5-5.1); Prothrombin Time 148.8 SEC (12.0-14.7); Sodium 139 mmol/L (136-145)
[2017-11-19 04:44] LABS: Phosphorus 1.9 mg/dL (2.3-4.7)
[2017-11-19 04:47] LABS: INR-International Normal Ratio 19.5; PTT 157.9 SEC (22.9-36.1)
[2017-11-19] MEDS ORDERED: Potassium Phosphate 9 MMOL in Sodium Chloride 0.9% 100 ML IVPB SCH (05:00)
[2017-11-19] MEDS ORDERED: Phytonadione 10 MG/ML AMP PO SCH (05:00)
[2017-11-19] MEDS: HYDROcodone/Acetaminophen 5/325 mg Tablet PO PRN ×3 (05:57→19:18)
[2017-11-19] MEDS ORDERED: Magnesium Sulfate 4 GM in Sodium Chloride 0.9% 250 ML 250 ML IVPB SCH (08:15)
[2017-11-19] MEDS ORDERED: Multivit, Therapeutic 1 TAB PO SCH (09:00)
[2017-11-19 09:59] LABS: Platelet Count 325 thou/uL (130-400)
[2017-11-19 10:02] LABS: Prothrombin Time 57.8 SEC (12.0-14.7)
--- NOTE | 2017-11-19 10:12 | PDOC.PULCN ---
Pulmonology Consult: HPI - Date of Consult Date: 11/19/17 Time: 10:06 - Consult Details Reason for Consult: infiltrate on CXR Requesting Physician: Sound - History of Present Illness HPI: ADOLFO THOMAS is a 61 year-old F with a known history of lung cancer and pulmonary embolism. She has been taking coumadin as an outpatient. She was admitted yesterday with a supratherapeutic INR. She apparently had missed several appointments for outpatient PT/INR. She has had some nasal bleeding. She fell on her Right leg and has some swelling to her RLE. She denies any hemoptysis. She is currently not SOB. She states that she is still in the process of evaluation of lung cancer. She has not had radiation or chemotherapy. Dr. Roper in [place] has been evaluating her for surgery, but it sounds like she has not passed her cardiac workup. History is obtained from patient and from reviewing old records. Pulmonology Consult: ROS - Review of Systems All systems: reviewed and no additional remarkable complaints except as stated Constitutional: weakness Respiratory: chest soreness, short of breath (also has swelling of RLE) Pulmonology Consult: [facility] Source: patient Past Medical History: Stage III lung cancer, workup by Dr. Dale COPD Pulmonary embolism Uterine cancer Hypertension Crohn's Dz DM2 Anxiety Colectomy Hysterectomy Choley - Family History Family history: reviewed and not pertinent - Social History Smoking Status: Current every day smoker Pack Years: 40 Alcohol Use: none Drug Use History: none Living Situation: independent Pulmonology Consult: Meds - Medications Medications: Current Medications Acetaminophen (Tylenol) 650 mg PO Q4H PRN PRN Reason: Headache/Fever or Pain Hydrocodone Bitart/Acetaminophen (Bickmore 5/325) 1 tab PO Q6H PRN PRN Reason: Moderate Pain (4-6) Last Admin: 11/19/17 05:57 Dose: 1 tab Albuterol/Ipratropium (Duoneb) 3 ml NEB Q2H PRN PRN Reason: SOB &/or Wheezing Albuterol/Ipratropium (Duoneb) 3 ml NEB [id number] MARCO Last Admin: 11/19/17 06:44 Dose: 3 ml Calcium Carbonate (Tums) 1,000 mg PO Q4H PRN PRN Reason: Heartburn or Indigestion Clonidine (Catapres) 0.1 mg PO Q4H PRN PRN Reason: Systolic BP > 180 Cyanocobalamin (Vitamin B-12) 1,000 mcg PO DAILY [facility] Dextrose/Water (Dextrose 50%) 25 gm SLOW IVP PRN PRN PRN Reason: Hypoglycemia Docusate Sodium (Colace) 100 mg PO BID [facility] Last Admin: 11/18/17 21:43 Dose: 100 mg Doxycycline Hyclate (Vibramycin) 100 mg PO BID [facility] Last Admin: 11/18/17 21:43 Dose: 100 mg Folic Acid (Folvite) 1 mg PO DAILY [facility] Glucagon (Glucagon) 1 mg IM PRN PRN PRN Reason: Hypoglycemia Hydralazine HCl (Apresoline) 10 mg SLOW IVP Q4H PRN PRN Reason: SBP Greater Than 180 Dextrose/Water (D5w) 1,000 mls @ 0 mls/hr IV .Q0M PRN; As Directed PRN Reason: Hypoglycemia Sodium Chloride (Normal Saline 0.9%) 1,000 mls @ 50 mls/hr IV .Q20H [facility] Stop: 11/20/17 20:24 Last Admin: 11/18/17 21:55 Dose: 1,000 mls Cefepime HCl 2 gm/ Syringe 2.5 (ml/ Sterile Water) 12.5 mls @ 150 mls/hr SLOW IVP 0800,1999 [facility] Magnesium Sulfate 4 gm/ Sodium (Chloride) 258 mls @ 86 mls/hr IVPB NOW [facility] Stop: 11/19/17 16:00 Insulin Human Regular (Humulin R) 0 units SC .MILD SLIDING SCALE PRN PRN Reason: Mild Correctional Scale Insulin Human Regular (Humulin R) 0 units SC .BEDTIME SLIDING SC PRN PRN Reason: Bedtime Correctional Scale Magnesium Hydroxide (Milk Of Magnesium) 30 ml PO DAILYPRN PRN PRN Reason: Constipation Methylprednisolone Sodium Succinate (Solu-Medrol) 40 mg IVP Q6HR [facility] Last Admin: 11/19/17 05:58 Dose: 40 mg Mineral Oil/White Petrolatum (Eucerin Cream) 0 gm TOP BIDPRN PRN PRN Reason: Dry Skin Miscellaneous Medication (Pharmacy To Dose) 1 each IVPB PRN PRN PRN Reason: Pharmacy to dose Multivitamins (Theragran) 1 tab PO DAILY [facility] Ondansetron HCl (Zofran Odt) 4 mg PO Q6H PRN PRN Reason: Nausea/Vomiting Ondansetron HCl (Zofran) 4 mg IVP Q6H PRN PRN Reason: Nausea/Vomiting Pantoprazole Sodium (Protonix) 40 mg IVP Q12HR [facility] Last Admin: 11/18/17 21:43 Dose: 40 mg Polyethylene Glycol (Miralax) 17 gm PO DAILYPRN PRN PRN Reason: Constipation Saccharomyces Boulardii (Florastor) 250 mg PO DAILY [facility] Senna (Senokot) 2 tab PO HSPRN PRN PRN Reason: Constipation - Allergies Allergies/Adverse Reactions: Allergies Allergy/AdvReac Type Severity Reaction Status Date / Time iodine Allergy Severe Anaphylaxis Verified 11/18/17 21:46 clarithromycin [From Biaxin] Allergy Rash Verified 11/18/17 21:46 Pulmonology Consult: PE - Physical Exam Constitutional: NAD HEENT: PERRLA, sclera anicteric Neck: no nodes, no JVD Cardiovascular: RRR, no significant murmur Focused Respiratory Location: rhonchi: Right (posteriorly) Gastrointestinal: soft, no distention Musculoskeletal: edema present Deviation from normal: RLE swelling below knee Neurological: non-focal, moves all 4 limbs Lymphatic: no nodes Psychiatric: normal affect, A&O x 3 Skin: no rash Pulmonology Consult: Results - Labs Result Diagrams: 11/19/17 09:44 11/19/17 03:50 Lab results: Laboratory Results WBC 5.6 thou/uL (4.8-10.8) 11/19/17 03:50 RBC 2.86 mill/uL (4.20-5.40) L 11/19/17 03:50 Hgb 8.0 g/dL (12.0-16.0) L 11/19/17 09:44 Hct 24.7 % (36.0-47.0) L 11/19/17 09:44 MCV 83.0 fl (81.0-99.0) 11/19/17 03:50 MCH 27.6 pg (27.0-31.0) 11/19/17 03:50 MCHC 33.2 g/dL (32.0-36.0) 11/19/17 03:50 RDW 14.4 % (11.5-14.5) 11/19/17 03:50 Plt Count 325 thou/uL (130-400) 11/19/17 09:44 MPV 6.2 fL (7.4-10.4) L 11/19/17 03:50 Neutrophils % 85.1 % (42.0-75.0) H 11/19/17 03:50 Lymphocytes % 11.9 % (21.0-51.0) L 11/19/17 03:50 Monocytes % 2.4 % (0.0-10.0) 11/19/17 03:50 Eosinophils % 0.7 % (0.0-10.0) 11/19/17 03:50 Basophils % 0.0 % (0.0-1.0) 11/19/17 03:50 Neutrophils # 4.8 thou/uL (1.40-6.50) 11/19/17 03:50 Lymphocytes # 0.7 thou/uL (1.20-3.40) L 11/19/17 03:50 Monocytes # 0.1 thou/uL (0.11-0.59) L 11/19/17 03:50 Eosinophils # 0.0 thou/uL (0.0-0.7) 11/19/17 03:50 Basophils # 0.0 thou/uL (0.0-0.2) 11/19/17 03:50 PT 148.8 SEC (12.0-14.7) H 11/19/17 03:50 INR 19.5 H* 11/19/17 03:50 APTT 157.9 SEC (22.9-36.1) H* 11/19/17 03:50 Sodium 139 mmol/L (136-145) 11/19/17 03:50 Potassium 3.4 mmol/L (3.5-5.1) L 11/19/17 03:50 Chloride 107 mmol/L (98-107) 11/19/17 03:50 Carbon Dioxide 24 mmol/L (22-29) 11/19/17 03:50 Anion Gap 11 mmol/L (10-20) 11/19/17 03:50 BUN 7 mg/dL (9.8-20.1) L 11/19/17 03:50 Creatinine 0.63 mg/dL (0.6-1.1) 11/19/17 03:50 Estimated GFR (MDRD) Greater than 90 11/19/17 03:50 BUN/Creatinine Ratio 11.11 11/19/17 03:50 Glucose 144 mg/dL (70-105) H 11/19/17 03:50 POC Glucose 159 mg/dL (70-110) H 11/19/17 05:39 Lactic Acid 1.3 mmol/L (0.5-2.2) 11/18/17 16:55 Calcium 8.4 mg/dL (7.8-10.44) 11/19/17 03:50 Phosphorus 1.9 mg/dL (2.3-4.7) L 11/19/17 03:50 Magnesium 1.4 mg/dL (1.6-2.6) L 11/19/17 03:50 Iron 42 ug/dL (50-170) L 11/18/17 16:55 TIBC 341 mcg/dL (265-497) 11/18/17 16:55 Ferritin 110.74 ng/mL (10-291) 11/18/17 16:55 Total Bilirubin 0.6 mg/dL (0.2-1.2) 11/18/17 16:55 AST 23 U/L (5-34) 11/18/17 16:55 ALT 20 U/L (8-55) 11/18/17 16:55 Alkaline Phosphatase 51 U/L (40-150) 11/18/17 16:55 Creatine Kinase 106 U/L (29-168) 11/18/17 16:55 CK-MB (CK-2) 2.1 ng/mL (0-6.6) 11/18/17 16:55 Troponin I 0.013 ng/mL (< 0.028) 11/18/17 16:55 B-Natriuretic Peptide 38.5 pg/mL (0-100) 11/18/17 16:55 Serum Total Protein 6.4 g/dL (6.0-8.3) 11/18/17 16:55 Albumin 3.5 g/dL (3.5-5.0) 11/19/17 03:50 Globulin 2.9 g/dL (2.4-3.5) 11/18/17 16:55 Albumin/Globulin Ratio 1.2 g/dL (1.2-2.2) 11/18/17 16:55 Lipase 6 U/L (8-78) L 11/18/17 16:55 - Radiology Interpretation Chest x-ray Status: image reviewed by me (Infiltrate obscuring R hilar mass) Pulmonology Consult: A/P - Problem (1) Coagulation problem Current Visit: Yes Status: Acute (2) Adenocarcinoma, lung Current Visit: Yes Code(s): C34.90 - MALIGNANT NEOPLASM OF UNSP PART OF UNSP BRONCHUS OR LUNG Status: Chronic (3) Pulmonary embolism Current Visit: Yes Code(s): I26.99 - OTHER PULMONARY EMBOLISM WITHOUT ACUTE COR PULMONALE Status: Chronic - Time Time: 50% of the time was spent in coordination of care (as documented) at patient's floor/unit and/or counseling patient. Time with Patient: greater than 70 minutes (performing consult and of those 70 min, greater than 50% of time was spent on counseling and coordination of care) - Plan Plan: On emperic ABX for infiltrate, although I think there is a reasonable chance this is blood. Correct hypercoagulation/ monitor INR - per hospitalist I will notify Dr. Dale
[2017-11-19 10:35] LABS: INR-International Normal Ratio 6.1
[2017-11-19] MEDS: Cefepime 2 GM, Syringe 2.5 ML in Sterile Water 10 ML SLOW IVP SCH ×2 (10:39→21:40)
[2017-11-19] MEDS: Folic Acid 1 MG TAB PO SCH (10:44)
[2017-11-19] MEDS: Docusate 100 MG CAP PO SCH ×2 (10:44→21:44)
[2017-11-19] MEDS: Cyanocobalamin (Vitamin B-12) 1,000 MCG TAB PO SCH (10:44)
[2017-11-19] MEDS: Saccharomyces boulardii 250 MG CAP PO SCH (10:44)
[2017-11-19] MEDS: Pantoprazole 40 MG VIAL IVP SCH ×2 (10:44→21:50)
[2017-11-19] MEDS: Doxycycline 100 MG CAP PO SCH ×2 (10:45→21:43)
[2017-11-19 16:11] LABS: Hemoglobin 7.9 g/dL (12.0-16.0); Platelet Count 332 thou/uL (130-400)
[2017-11-19 16:15] LABS: INR-International Normal Ratio 2.4; Prothrombin Time 26.9 SEC (12.0-14.7)
--- NOTE | 2017-11-19 16:30 | ULT ---
FOCUSED ULTRASOUND OF THE RIGHT THIGH 11/19/17 COMPARISON: None. HISTORY: Fall, bruising, assess for hematoma. FINDINGS: Focused ultrasound in the area of palpable concern demonstrates horizontally oriented linear areas of decreased echogenicity within the subcutaneous fat suggesting nonspecific ill-defined edema. No foca l fluid collection or drainable abscess. IMPRESSION: Nonspecific edematous change within the subcutaneous fat. No focal fluid collection seen. POS: QUIANAH
[2017-11-19] MEDS: Sodium Chloride 0.9% 1,000 ML IV SCH (17:52)
[2017-11-19] MEDS: Tamsulosin HCl 0.4 MG CAP PO SCH (21:44)
--- NOTE | 2017-11-19 22:10 | PDOC.PN ---
- Subjective Encounter Start Date: 11/19/17 Encounter Start Time: 14:30 Patient seen and examined. No new complaints. No overnight events. No hemoptysis /hematemesis or melena - Objective Resuscitation Status: Resuscitation Status FULL:Full Resuscitation MAR Reviewed: Yes Vital Signs & Weight: Vital Signs (12 hours) Temp Pulse Resp BP Pulse Ox 11/19/17 20:00 97.6 F 93 20 150/74 H 95 11/19/17 18:27 98 16 95 11/19/17 16:07 98.7 F 88 16 163/73 H 95 11/19/17 14:07 92 L 11/19/17 14:05 106 H 16 11/19/17 11:27 98.9 F 81 16 159/80 H 92 L 11/19/17 11:08 82 16 Weight Admit Weight 164 lb Weight 164 lb I&O: 11/18/17 11/19/17 11/20/17 06:59 06:59 06:59 Intake Total 1560 1650 Balance 1560 1650 Result Diagrams: 11/20/17 03:50 11/20/17 03:50 Additional Labs: Accuchecks 11/19/17 11/19/17 11/19/17 19:41 16:08 11:30 POC Glucose 190 H 169 H 138 H 11/19/17 11/18/17 05:39 22:39 POC Glucose 159 H 259 H Phys Exam - Physical Examination Constitutional: NAD Respiratory: no wheezing, no rales scat rhonchi Cardiovascular: RRR, no rub Gastrointestinal: soft, non-tender, positive bowel sounds Musculoskeletal: no edema Rt thigh tenderness Neurological: moves all 4 limbs Psychiatric: A&O x 3 Dx/Plan - Plan IMPRESSION: 1. Coagulopathy of unclear etiology. 2. Acute hypoxic respiratory failure secondary to chronic obstructive pulmonary disease exacerbation/pneumonia suspected pneumococcal. ?Alveolar hemorrhage 3. History of lung cancer. 4. 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 5. Crohn's disease. 6. Diabetes mellitus type 2. 7. Hypertension. 8. Anxiety and depression. 9. Tobacco dependence. 10. Anemia of blood loss ?acute. Her H&H this admission is 8.2 with hematocrit of 25.1. Her hemoglobin last week was 13. Prior to that, it was between 11 and 12. She denies any melena or hematochezia. ?suspected alveolar hemorrhage PLAN: * Warfarin on hold * Pulmonary following * Rt thigh USG to r/o hematoma * Monitor HH * Change PPI to PO * Resume selected home meds * Nicotin patch Review of Systems - Review of Systems Respiratory: Cough, Dry, Wheezing (intermittent). negative: Shortness of Breath , Hemoptysis, SOB with Excertion, Pleuritic Pain, Sputum Cardiovascular: negative: chest pain, palpitations, orthopnea, paroxysmal nocturnal dyspnea, edema, light headedness - Medications/Allergies Allergies/Adverse Reactions: Allergies Allergy/AdvReac Type Severity Reaction Status Date / Time iodine Allergy Severe Anaphylaxis Verified 11/18/17 21:46 clarithromycin [From Biaxin] Allergy Rash Verified 11/18/17 21:46 Medications: Current Medications Acetaminophen (Tylenol) 650 mg PO Q4H PRN PRN Reason: Headache/Fever or Pain Hydrocodone Bitart/Acetaminophen ([place] 5/325) 1 tab PO Q6H PRN PRN Reason: Moderate Pain (4-6) Last Admin: 11/19/17 19:18 Dose: 1 tab Albuterol/Ipratropium (Duoneb) 3 ml NEB Q2H PRN PRN Reason: SOB &/or Wheezing Albuterol/Ipratropium (Duoneb) 3 ml NEB [id number] [facility] Last Admin: 11/19/17 18:27 Dose: 3 ml Calcium Carbonate (Tums) 1,000 mg PO Q4H PRN PRN Reason: Heartburn or Indigestion Clonidine (Catapres) 0.1 mg PO Q4H PRN PRN Reason: Systolic BP > 180 Cyanocobalamin (Vitamin B-12) 1,000 mcg PO DAILY [facility] Last Admin: 11/19/17 10:44 Dose: 1,000 mcg Dextrose/Water (Dextrose 50%) 25 gm SLOW IVP PRN PRN PRN Reason: Hypoglycemia Docusate Sodium (Colace) 100 mg PO BID [facility] Last Admin: 11/19/17 21:44 Dose: 100 mg Doxycycline Hyclate (Vibramycin) 100 mg PO BID [facility] Last Admin: 11/19/17 21:43 Dose: 100 mg Folic Acid (Folvite) 1 mg PO DAILY [facility] Last Admin: 11/19/17 10:44 Dose: 1 mg Glucagon (Glucagon) 1 mg IM PRN PRN PRN Reason: Hypoglycemia Hydralazine HCl (Apresoline) 10 mg SLOW IVP Q4H PRN PRN Reason: SBP Greater Than 180 Dextrose/Water (D5w) 1,000 mls @ 0 mls/hr IV .Q0M PRN; As Directed PRN Reason: Hypoglycemia Sodium Chloride (Normal Saline 0.9%) 1,000 mls @ 50 mls/hr IV .Q20H [facility] Stop: 11/20/17 20:24 Last Admin: 11/19/17 17:52 Dose: Not Given Cefepime HCl 2 gm/ Syringe 2.5 (ml/ Sterile Water) 12.5 mls @ 150 mls/hr SLOW IVP 0800,1999 [facility] Last Admin: 11/19/17 21:40 Dose: 12.5 mls Insulin Human Regular (Humulin R) 0 units SC .MILD SLIDING SCALE PRN PRN Reason: Mild Correctional Scale Insulin Human Regular (Humulin R) 0 units SC .BEDTIME SLIDING SC PRN PRN Reason: Bedtime Correctional Scale Magnesium Hydroxide (Milk Of Magnesium) 30 ml PO DAILYPRN PRN PRN Reason: Constipation Methylprednisolone Sodium Succinate (Solu-Medrol) 40 mg IVP Q6HR [facility] Last Admin: 11/19/17 17:47 Dose: 40 mg Mineral Oil/White Petrolatum (Eucerin Cream) 0 gm TOP BIDPRN PRN PRN Reason: Dry Skin Miscellaneous Medication (Pharmacy To Dose) 1 each IVPB PRN PRN PRN Reason: Pharmacy to dose Miscellaneous Medication (Pharmacy To Dose) 1 each PO PRN PRN PRN Reason: Pharmacy to dose Multivitamins (Theragran) 1 tab PO DAILY [facility] Last Admin: 11/19/17 10:44 Dose: 1 tab Ondansetron HCl (Zofran Odt) 4 mg PO Q6H PRN PRN Reason: Nausea/Vomiting Ondansetron HCl (Zofran) 4 mg IVP Q6H PRN PRN Reason: Nausea/Vomiting Pantoprazole Sodium (Protonix) 40 mg IVP Q12HR [facility] Last Admin: 11/19/17 21:50 Dose: 40 mg Polyethylene Glycol (Miralax) 17 gm PO DAILYPRN PRN PRN Reason: Constipation Saccharomyces Boulardii (Florastor) 250 mg PO DAILY [facility] Last Admin: 11/19/17 10:44 Dose: 250 mg Senna (Senokot) 2 tab PO HSPRN PRN PRN Reason: Constipation Tamsulosin HCl (Flomax) 0.4 mg PO HS [facility] Last Admin: 11/19/17 21:44 Dose: 0.4 mg
[2017-11-19] MEDS ORDERED: Warfarin Sodium 2.5 MG TAB PO SCH (22:45)
[2017-11-19] MEDS ORDERED: traZODone HCl 50 MG TAB PO SCH (23:45)
[2017-11-19] MEDS ORDERED: Nicotine 14 MG PATCH TOP SCH (23:45)
[2017-11-20 04:19] LABS: #Eosinphils 0.1 thou/uL (0.0-0.7); #Lymphocytes 1.1 thou/uL (1.20-3.40); #Monocytes 0.6 thou/uL (0.11-0.59); #Neutrophils 9.2 thou/uL (1.40-6.50); %Basophils 0.1 % (0.0-1.0); %Eosinophils 0.6 % (0.0-10.0); %Neutrophils 84.3 % (42.0-75.0); Hemoglobin 7.6 g/dL (12.0-16.0); Mean Corpuscular HGB CONC 32.9 g/dL (32.0-36.0); Mean Corpuscular Hemoglobin 27.6 pg (27.0-31.0); Mean Platelet Volume 6.6 fL (7.4-10.4); Platelet Count 357 thou/uL (130-400); RBC Distribution Width 15.5 % (11.5-14.5); Red Blood Cell (RBC) Count 2.76 mill/uL (4.20-5.40); White Blood Cell (WBC) Count 10.9 thou/uL (4.8-10.8)
[2017-11-20 04:27] LABS: INR-International Normal Ratio 1.5; Prothrombin Time 18.5 SEC (12.0-14.7)
[2017-11-20 04:47] LABS: Albumin 3.6 g/dL (3.5-5.0); Anion Gap 12 mmol/L (10-20); BUN (Urea Nitrogen) 12 mg/dL (9.8-20.1); BUN/Creatinine Ratio 17.65; Calc. Creatinine Clearance 103 mL/min (70-130); Calcium 8.9 mg/dL (7.8-10.44); Carbon Dioxide 24 mmol/L (22-29); Chloride 107 mmol/L (98-107); Estimated GFR-MDRD 88; Glucose 143 mg/dL (70-105); Magnesium 2.3 mg/dL (1.6-2.6); Phosphorus 2.6 mg/dL (2.3-4.7); Potassium 3.7 mmol/L (3.5-5.1); Sodium 139 mmol/L (136-145)
[2017-11-20] MEDS: Sodium Chloride 0.9% 1,000 ML IV SCH (06:41)
[2017-11-20] MEDS: HYDROcodone/Acetaminophen 5/325 mg Tablet PO PRN ×2 (06:43→15:59)
[2017-11-20] MEDS: Doxycycline 100 MG CAP PO SCH ×2 (08:07→20:28)
[2017-11-20] MEDS: Saccharomyces boulardii 250 MG CAP PO SCH (08:07)
[2017-11-20] MEDS: Docusate 100 MG CAP PO SCH ×2 (08:07→20:29)
[2017-11-20] MEDS: Cyanocobalamin (Vitamin B-12) 1,000 MCG TAB PO SCH (08:07)
[2017-11-20] MEDS: Cefepime 2 GM, Syringe 2.5 ML in Sterile Water 10 ML SLOW IVP SCH (08:08)
[2017-11-20] MEDS: Folic Acid 1 MG TAB PO SCH (08:08)
--- NOTE | 2017-11-20 13:30 | PRG ---
DATE OF SERVICE: 11/20/2017 SERVICE: Pulmonary Medicine. INTERVAL HISTORY: The patient is doing outstanding from a respiratory standpoint. She is coughing u p significant amount of blood, but it is tapering off and becoming much darker. The most recent stuf f that she coughed up was about an hour and a half ago and it was nearly dark blood. Otherwise, antonino garcia has been no interval change to her condition. They lost IV access on her. That being said, we luz lly do not have much in the way of IV medications that need to be administered. We will switch over to p.o. If she gets into any trouble, we can obviously urgently put in a central line or IO. That colin oglesby said, she is currently doing well and has no specific complaints of fevers or chills. She is co ughing and has some increasing work of breathing. Her oxygen saturations were marginal on room air. PHYSICAL EXAMINATION: VITAL SIGNS: Afebrile, pulse 86, blood pressure 172/85, respirations 20, saturation 99% on 2 liters nasal cannula. On room air, saturations are 89%. GENERAL: The patient is awake, alert, in no apparent distress. LUNGS: Decent air entry. There is wheezing and rhonchi both present, prolonged expiratory phase is evident. No crackles are appreciated. HEART: Normal rate, regular. ABDOMEN: Soft, nontender, nondistended. Bowel sounds are positive. MUSCULOSKELETAL: No cyanosis or clubbing. No pitting in the bilateral lower extremities. NEUROLOGIC: Grossly nonfocal. LABORATORY DATA: WBC 10.9, hemoglobin 7.6, platelets 357,000. INR 1.5 and stable. Basic metabolic profile, magnesium, and phosphorus are unremarkable. Fecal occult blood is positive. Influenza A an d B are negative. Blood culture x2 are unremarkable. IMAGIN. Soft tissue ultrasound of the lung demonstrates no focal collection of fluid. 2. Chest x-ray demonstrates multifocal infiltrate of the dependent sections of the right upper lobe, and parts of the right lower lobe with interstitial infiltrates. The left lung is without any signi ficant abnormalities. ASSESSMENT: 1. Chronic obstructive pulmonary disease with acute exacerbation secondary to blood. 2. Hemoptysis. 3. Acute hypoxic respiratory failure. 4. Adenocarcinoma of the right lower lobe. 5. Acute blood loss anemia. PLAN: The patient's hemoglobins have been fairly stable over the past 48 hours. As such, I will onl y check hemoglobin tomorrow morning. I will continue antibiotics, nebulizer medications and steroids , but switch everything over to p.o. route. I will also feed the patient. She is requesting her dieudonne e Klonopin, which I think is reasonable. We will get this thing back on board. She will need to rem ain in the hospital for at least an additional 24 hours, but if she is stable over this period of leela e and off oxygen, she can be considered for transition home.
[2017-11-20 15:42] LABS: Hemoglobin 7.9 g/dL (12.0-16.0)
[2017-11-20] MEDS: predniSONE 20 MG TAB PO SCH (15:59)
[2017-11-20] MEDS ORDERED: Warfarin Sodium 2.5 MG TAB PO SCH (17:00)
[2017-11-20] MEDS: Cefdinir 300 MG CAP PO SCH (20:28)
[2017-11-20] MEDS: clonazePAM 1 MG TAB PO SCH (20:28)
[2017-11-20] MEDS: Tamsulosin HCl 0.4 MG CAP PO SCH (20:29)
--- NOTE | 2017-11-20 21:53 | PDOC.PN ---
- Subjective Encounter Start Date: 11/20/17 Encounter Start Time: 15:00 Patient seen and examined. Had hemoptysis last night. No melena. No overnight events - Objective Resuscitation Status: Resuscitation Status FULL:Full Resuscitation MAR Reviewed: Yes Vital Signs & Weight: Vital Signs (12 hours) Temp Pulse Resp BP Pulse Ox 11/20/17 20:00 98.4 F 76 16 168/72 H 95 11/20/17 18:53 112 H 18 93 L 11/20/17 16:22 99.0 F 79 20 181/78 H 92 L 11/20/17 15:19 114 H 20 92 L 11/20/17 11:16 97.5 F L 86 20 172/85 H 99 11/20/17 10:42 90 16 Weight Admit Weight 164 lb Weight 164 lb I&O: 11/19/17 11/20/17 11/21/17 06:59 06:59 06:59 Intake Total 1560 2590 1500 Balance 1560 2590 1500 Result Diagrams: 11/21/17 04:49 11/20/17 03:50 Additional Labs: Accuchecks 11/20/17 11/20/17 11/20/17 20:06 15:49 10:45 POC Glucose 134 H 110 154 H 11/20/17 05:17 POC Glucose 160 H Phys Exam - Physical Examination Constitutional: NAD Respiratory: no wheezing Scat rhonchi Cardiovascular: RRR, no rub Gastrointestinal: soft, non-tender, positive bowel sounds Musculoskeletal: no edema Neurological: moves all 4 limbs Psychiatric: A&O x 3 Dx/Plan - Plan DVT proph w/SCDs IMPRESSION: 1. Coagulopathy of unclear etiology. 2. Acute hypoxic respiratory failure secondary to chronic obstructive pulmonary disease exacerbation/pneumonia suspected pneumococcal. ?Alveolar hemorrhage 3. History of lung cancer. 4. 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 Crohn's disease with h/o Colon Ca 6. Diabetes mellitus type 2. 7. Hypertension. 8. Anxiety and depression. 9. Tobacco dependence. 10. Anemia of blood loss ?acute. Her H&H this admission is 8.2 with hematocrit of 25.1. Her hemoglobin last week was 13. Prior to that, it was between 11 and 12. She denies any melena or hematochezia. ?suspected alveolar hemorrhage. Hemoccult stool + PLAN: * Warfarin on hold * Pulmonary following * Hold Warfarin x 3 days per Pulmonary * Monitor HH * Cont PPI * Await GI input * Nicotin patch * Cont to monitor Review of Systems - Review of Systems Respiratory: Cough, Dry. negative: Shortness of Breath, Hemoptysis, SOB with Excertion, Pleuritic Pain, Sputum, Wheezing Cardiovascular: negative: chest pain, palpitations, orthopnea, paroxysmal nocturnal dyspnea, edema, light headedness, other - Medications/Allergies Allergies/Adverse Reactions: Allergies Allergy/AdvReac Type Severity Reaction Status Date / Time iodine Allergy Severe Anaphylaxis Verified 11/18/17 21:46 clarithromycin [From Biaxin] Allergy Rash Verified 11/18/17 21:46 Medications: Current Medications Acetaminophen (Tylenol) 650 mg PO Q4H PRN PRN Reason: Headache/Fever or Pain Hydrocodone Bitart/Acetaminophen ([employer] 5/325) 1 tab PO Q6H PRN PRN Reason: Moderate Pain (4-6) Last Admin: 11/20/17 15:59 Dose: 1 tab Albuterol/Ipratropium (Duoneb) 3 ml NEB Q2H PRN PRN Reason: SOB &/or Wheezing Albuterol/Ipratropium (Duoneb) 3 ml NEB [id number] [facility] Last Admin: 11/20/17 18:53 Dose: 3 ml Calcium Carbonate (Tums) 1,000 mg PO Q4H PRN PRN Reason: Heartburn or Indigestion Cefdinir (Omnicef) 300 mg PO BID [facility] Last Admin: 11/20/17 20:28 Dose: 300 mg Clonazepam (Klonopin) 1 mg PO BID [facility] Last Admin: 11/20/17 20:28 Dose: 1 mg Clonidine (Catapres) 0.1 mg PO Q4H PRN PRN Reason: Systolic BP > 180 Cyanocobalamin (Vitamin B-12) 1,000 mcg PO DAILY [facility] Last Admin: 11/20/17 08:07 Dose: 1,000 mcg Dextrose/Water (Dextrose 50%) 25 gm SLOW IVP PRN PRN PRN Reason: Hypoglycemia Docusate Sodium (Colace) 100 mg PO BID [facility] Last Admin: 11/20/17 20:29 Dose: Not Given Doxycycline Hyclate (Vibramycin) 100 mg PO BID [facility] Last Admin: 11/20/17 20:28 Dose: 100 mg Folic Acid (Folvite) 1 mg PO DAILY [facility] Last Admin: 11/20/17 08:08 Dose: 1 mg Glucagon (Glucagon) 1 mg IM PRN PRN PRN Reason: Hypoglycemia Hydralazine HCl (Apresoline) 10 mg SLOW IVP Q4H PRN PRN Reason: SBP Greater Than 180 Dextrose/Water (D5w) 1,000 mls @ 0 mls/hr IV .Q0M PRN; As Directed PRN Reason: Hypoglycemia Insulin Human Regular (Humulin R) 0 units SC .MILD SLIDING SCALE PRN PRN Reason: Mild Correctional Scale Insulin Human Regular (Humulin R) 0 units SC .BEDTIME SLIDING SC PRN PRN Reason: Bedtime Correctional Scale Magnesium Hydroxide (Milk Of Magnesium) 30 ml PO DAILYPRN PRN PRN Reason: Constipation Mineral Oil/White Petrolatum (Eucerin Cream) 0 gm TOP BIDPRN PRN PRN Reason: Dry Skin Miscellaneous Medication (Pharmacy To Dose) 1 each IVPB PRN PRN PRN Reason: Pharmacy to dose Ondansetron HCl (Zofran Odt) 4 mg PO Q6H PRN PRN Reason: Nausea/Vomiting Pantoprazole Sodium (Protonix) 40 mg PO DAILY [facility] Last Admin: 11/20/17 08:07 Dose: 40 mg Polyethylene Glycol (Miralax) 17 gm PO DAILYPRN PRN PRN Reason: Constipation Prednisone (Prednisone) 20 mg PO BID-[facility] Last Admin: 11/20/17 15:59 Dose: 20 mg Saccharomyces Boulardii (Florastor) 250 mg PO DAILY [facility] Last Admin: 11/20/17 08:07 Dose: 250 mg Senna (Senokot) 2 tab PO HSPRN PRN PRN Reason: Constipation Tamsulosin HCl (Flomax) 0.4 mg PO [facility] Last Admin: 11/20/17 20:29 Dose: 0.4 mg
[2017-11-20] MEDS ORDERED: Promethazine HCl 25 MG/ML VIAL SLOW IVP PRN (22:51)
[2017-11-20] MEDS ORDERED: Promethazine HCl 25 MG/ML VIAL IM PRN (22:51)
[2017-11-20] MEDS ORDERED: HYDROmorphone 2 MG/ML VIAL SLOW IVP PRN (22:51)
[2017-11-20] MEDS ORDERED: Ondansetron HCl/PF 4 MG/2 ML Vial IVP PRN (22:51)
[2017-11-21] MEDS: HYDROcodone/Acetaminophen 5/325 mg Tablet PO PRN ×3 (02:43→18:38)
[2017-11-21 05:21] LABS: INR-International Normal Ratio 1.2
[2017-11-21 05:29] LABS: Platelet Count 386 thou/uL (130-400)
[2017-11-21] MEDS: Docusate 100 MG CAP PO SCH ×2 (07:54→19:11)
[2017-11-21] MEDS: Cefdinir 300 MG CAP PO SCH ×2 (07:54→20:02)
[2017-11-21] MEDS: Saccharomyces boulardii 250 MG CAP PO SCH (07:55)
[2017-11-21] MEDS: Cyanocobalamin (Vitamin B-12) 1,000 MCG TAB PO SCH (07:55)
[2017-11-21] MEDS: Folic Acid 1 MG TAB PO SCH (07:55)
[2017-11-21] MEDS: Doxycycline 100 MG CAP PO SCH ×2 (07:55→20:01)
[2017-11-21] MEDS: predniSONE 20 MG TAB PO SCH ×2 (07:56→16:07)
[2017-11-21] MEDS: clonazePAM 1 MG TAB PO SCH ×2 (07:56→20:01)
--- NOTE | 2017-11-21 08:07 | CON ---
DATE OF CONSULTATION: 11/20/2017 CHIEF COMPLAINT: Coughing up blood. HISTORY OF PRESENT ILLNESS: Ms. Steel is a 61-year-old woman with lung cancer, who presented with a markedly elevated INR and some hemoptysis. She was on anticoagulation for pulmonary embolism. Cheng garcia has no nausea or vomiting. No diarrhea, constipation, or visible blood in the stool. She was note d to be Hemoccult positive and GI was consulted to evaluate that. She does have chronic diarrhea and has 5/6 loose stools per day and has for years. This is unchanged from her baseline lately. PAST MEDICAL HISTORY: 1. Lung cancer. She is being evaluated for possible surgery for this. 2. Pulmonary embolism on chronic anticoagulation. 3. Chronic obstructive pulmonary disease. 4. She reports history of uterine cancer in . When she had uterus taken out, she later flared up with abdominal pain and ultimately was found to have colon cancer as well, and this was resected. It is unclear how much of a bowel resection she had. 5. Chronic hepatitis C. 6. She reports a history of Crohn's disease diagnosed in . She has not been on specific therap y for this recently. She most recently has been followed by GI in [place], but has moved here. 7. Diabetes mellitus type 2. 8. Hypertension. PAST SURGICAL HISTORY: Colon resection, hysterectomy, cholecystectomy. FAMILY HISTORY: Positive for lung cancer in her sister and her father had colon cancer. ALLERGIES: IODINE, and CLARITHROMYCIN. SOCIAL HISTORY: She smokes half a pack a day. She quit drinking 3 or 4 years ago. No drugs. She h as been living at [facility]. MEDICATIONS: Currently include cefdinir, clonazepam, docusate, doxycycline, folic acid, pantoprazole , prednisone 20 mg twice daily, Flomax. REVIEW OF SYSTEMS: Negative x10 systems reviewed except as stated in the history of present illness. PHYSICAL EXAMINATION: VITAL SIGNS: Temperature 99.0, pulse 112, blood pressure 181/78, oxygen saturation 93% on room air. GENERAL: She is in no acute distress. She is alert and oriented x3. EYES: Have no scleral icterus. OROPHARYNX: Clear without lesions. NECK: No cervical or supraclavicular lymphadenopathy. LUNGS: Expiratory wheezes in the lower lung valentine. HEART: Regular rate and rhythm. ABDOMEN: Soft, nontender, nondistended. Bowel sounds are present. EXTREMITIES: 1+ pitting lower extremity edema. LABORATORY DATA: White blood cell count 10.9, hemoglobin 7.9, MCV 84, platelets 357, creatinine 0.68 . INR is down to 1.5 this afternoon from greater than 19.5 two days ago and 19.5 yesterday. IMPRESSION: 1. Hemoccult positive stool and anemia. She likely has had some gastrointestinal blood loss along w ith her markedly supratherapeutic INR. She had only one dark stool this morning, has had brown stool s later today. No other evidence of bleeding from the GI tract grossly. 2. Anemia of acute blood loss. 3. Coagulopathy secondary to warfarin toxicity. 4. History of pulmonary embolus and IVC thrombus. 5. Lung cancer being evaluated for surgery. 6. History of colon cancer and colon resection; however, head scan recently was negative at least. She reports colonoscopy 2 or 3 years ago in [place] was negative. She was told to repeat in 5 years. 7. Family history of colon cancer. 8. Personal history of uterine cancer. 9. Hepatitis C. She has not been treated for this. She quit drinking 3 or 4 years ago per her repo rt. CT scan of the abdomen and pelvis in 08/2017, not show obvious signs of cirrhosis. Her liver te sts were normal on 11/18/2017. Her platelet count is normal. RECOMMENDATIONS: 1. Follow up in GI clinic with Dr. Byers to evaluate her chronic hepatitis C and history of Crohn's and for establishing timing of her next screening colonoscopy, given her personal history of colon c ancer and uterine cancer and family history of colon cancer in her father. She did have a colonoscop y in [address] Byers, which was normal overall. Further treatment and colon cancer screening at t his point, should be done after a course of treatment determined for her lung cancer. There is no im mediate indication for endoscopy as her anemia, presented in the setting of an INR that was above the limits of the lab. 2. I will sign off for now. Please call if GI can be of assistance.
--- NOTE | 2017-11-21 12:09 | EKG ---
Test Reason : Blood Pressure : / mmHG Vent. Rate : 066 BPM Atrial Rate : 066 BPM P-R Int : 160 ms QRS Dur : 098 ms QT Int : 454 ms P-R-T Axes : 045 024 065 degrees QTc Int : 475 ms Normal sinus rhythm Nonspecific ST and T wave abnormality Abnormal ECG Confirmed by IGLESIA HERNANDEZ, IRON ([id number]), newspaper editor BRADLYE VILLANUEVA ([id number]) on 11/21/2017 12:09:19 PM Referred By: Confirmed By:IRON PAREKH MD
--- NOTE | 2017-11-21 15:52 | PDOC.PN ---
- Subjective Encounter Start Date: 11/21/17 Encounter Start Time: 14:30 Patient seen and examined. No new complaints. No overnight events. No new hemoptysis or GI bleeding. - Objective Resuscitation Status: Resuscitation Status FULL:Full Resuscitation MAR Reviewed: Yes Vital Signs & Weight: Vital Signs (12 hours) Temp Pulse Resp BP Pulse Ox 11/21/17 14:06 98 16 93 L 11/21/17 08:00 98.7 F 91 16 161/85 H 91 L 11/21/17 07:49 98.7 F 91 16 161/85 H 91 L 11/21/17 07:08 94 18 92 L Weight Admit Weight 164 lb Weight 164 lb I&O: 11/20/17 11/21/17 11/22/17 06:59 06:59 06:59 Intake Total 2590 1900 Balance 2590 1900 Result Diagrams: 11/22/17 04:23 11/20/17 03:50 Additional Labs: Accuchecks 11/21/17 11/21/17 11/20/17 10:29 04:56 20:06 POC Glucose 129 H 128 H 134 H 11/20/17 15:49 POC Glucose 110 Phys Exam - Physical Examination Constitutional: NAD Respiratory: no wheezing, no rhonchi Cardiovascular: RRR, no rub Gastrointestinal: soft, non-tender, positive bowel sounds Musculoskeletal: no edema Neurological: moves all 4 limbs Dx/Plan - Plan DVT proph w/SCDs IMPRESSION: 1. Coagulopathy due to Coumadin toxicity 2. Acute hypoxic respiratory failure secondary to chronic obstructive pulmonary disease exacerbation/pneumonia suspected pneumococcal. ?Alveolar hemorrhage 3. History of lung cancer. 4. 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 Crohn's disease with h/o Colon Ca 6. Diabetes mellitus type 2. 7. Hypertension. 8. Anxiety and depression. 9. Tobacco dependence. Counselled 10. Anemia of blood loss ?acute. 11. Suspected Chronic GI bleeding PLAN: * Warfarin on hold for 3 days per pulmonary * HH in AM * Probable dc in AM if HH stable * Cont PPI * GI input appreciated * Nicotin patch * Cont to monitor * Resume selected home meds Review of Systems - Review of Systems Respiratory: Cough, Dry, SOB with Excertion. negative: Shortness of Breath, Hemoptysis, Pleuritic Pain, Sputum, Wheezing Cardiovascular: negative: chest pain, palpitations, orthopnea, paroxysmal nocturnal dyspnea, edema, light headedness Gastrointestinal: negative: Nausea, Vomiting, Abdominal Pain, Diarrhea, Constipation, Melena, Hematochezia - Medications/Allergies Allergies/Adverse Reactions: Allergies Allergy/AdvReac Type Severity Reaction Status Date / Time iodine Allergy Severe Anaphylaxis Verified 11/18/17 21:46 clarithromycin [From Biaxin] Allergy Rash Verified 11/18/17 21:46 Medications: Current Medications Acetaminophen (Tylenol) 650 mg PO Q4H PRN PRN Reason: Headache/Fever or Pain Hydrocodone Bitart/Acetaminophen ([place] 5/325) 1 tab PO Q6H PRN PRN Reason: Moderate Pain (4-6) Last Admin: 11/21/17 09:51 Dose: 1 tab Albuterol/Ipratropium (Duoneb) 3 ml NEB Q2H PRN PRN Reason: SOB &/or Wheezing Albuterol/Ipratropium (Duoneb) 3 ml NEB [id number] [facility] Last Admin: 11/21/17 14:06 Dose: 3 ml Calcium Carbonate (Tums) 1,000 mg PO Q4H PRN PRN Reason: Heartburn or Indigestion Cefdinir (Omnicef) 300 mg PO BID [facility] Last Admin: 11/21/17 07:54 Dose: 300 mg Citalopram Hydrobromide (Celexa) 20 mg PO DAILY [facility] Clonazepam (Klonopin) 1 mg PO BID [facility] Last Admin: 11/21/17 07:56 Dose: 1 mg Clonidine (Catapres) 0.1 mg PO Q4H PRN PRN Reason: Systolic BP > 180 Cyanocobalamin (Vitamin B-12) 1,000 mcg PO DAILY [facility] Last Admin: 11/21/17 07:55 Dose: 1,000 mcg Dextrose/Water (Dextrose 50%) 25 gm SLOW IVP PRN PRN PRN Reason: Hypoglycemia Docusate Sodium (Colace) 100 mg PO BID [facility] Last Admin: 11/21/17 07:54 Dose: Not Given Doxycycline Hyclate (Vibramycin) 100 mg PO BID [facility] Last Admin: 11/21/17 07:55 Dose: 100 mg Folic Acid (Folvite) 1 mg PO DAILY [facility] Last Admin: 11/21/17 07:55 Dose: 1 mg Glucagon (Glucagon) 1 mg IM PRN PRN PRN Reason: Hypoglycemia Hydralazine HCl (Apresoline) 10 mg SLOW IVP Q4H PRN PRN Reason: SBP Greater Than 180 Dextrose/Water (D5w) 1,000 mls @ 0 mls/hr IV .Q0M PRN; As Directed PRN Reason: Hypoglycemia Insulin Human Regular (Humulin R) 0 units SC .MILD SLIDING SCALE PRN PRN Reason: Mild Correctional Scale Insulin Human Regular (Humulin R) 0 units SC .BEDTIME SLIDING SC PRN PRN Reason: Bedtime Correctional Scale Magnesium Hydroxide (Milk Of Magnesium) 30 ml PO DAILYPRN PRN PRN Reason: Constipation Mineral Oil/White Petrolatum (Eucerin Cream) 0 gm TOP BIDPRN PRN PRN Reason: Dry Skin Miscellaneous Medication (Pharmacy To Dose) 1 each IVPB PRN PRN PRN Reason: Pharmacy to dose Ondansetron HCl (Zofran Odt) 4 mg PO Q6H PRN PRN Reason: Nausea/Vomiting Pantoprazole Sodium (Protonix) 40 mg PO DAILY [facility] Last Admin: 11/21/17 07:56 Dose: 40 mg Polyethylene Glycol (Miralax) 17 gm PO DAILYPRN PRN PRN Reason: Constipation Prednisone (Prednisone) 20 mg PO BID-[facility] Last Admin: 11/21/17 07:56 Dose: 20 mg Risperidone (Risperidone) 2 mg PO BID [facility] Saccharomyces Boulardii (Florastor) 250 mg PO DAILY [facility] Last Admin: 11/21/17 07:55 Dose: 250 mg Senna (Senokot) 2 tab PO HSPRN PRN PRN Reason: Constipation Trazodone HCl (Desyrel) 100 mg PO HS PRN PRN Reason: Insomnia
[2017-11-21] MEDS: traZODone HCl 50 MG TAB PO PRN (20:01)
--- NOTE | 2017-11-21 20:30 | PRG ---
DATE OF SERVICE: 11/21/2017 SERVICE: Pulmonary Medicine. INTERVAL HISTORY: The patient is doing fine from a respiratory standpoint. She denies any current f ab, chills, nausea, vomiting or chest discomfort. She has been down to smoke multiple times today and I had missed her on a couple of occasions. Otherwise, there has been no interval change to her condition. Apparently, she tells me today that she has never been treated for this lung cancer. We knew about it quite some time ago. She even had a PET scan suggesting that she had disease that was possibly limited to the right hilar region. That being said, she has never undergone pulmonary funct ion studies that we asked her to do in order to prove that she was possibly a surgical candidate. Ei ther way, that appointment has been scheduled for 12/03/2017. PHYSICAL EXAMINATION: VITAL SIGNS: Afebrile, pulse 98, blood pressure 169/78, respirations 16, saturation 93% on room air. GENERAL: Patient is awake, alert, no apparent distress. LUNGS: Decent air entry. There is no prolonged expiratory phase with some polyphonic wheezing. No rhonchi or crackles are appreciated. HEART: Normal rate, regular. ABDOMEN: Soft, nontender, nondistended. Bowel sounds are positive. MUSCULOSKELETAL: No cyanosis or clubbing. There is no pitting in the bilateral lower extremities. NEUROLOGIC: Grossly nonfocal. LABORATORY DATA: Hemoglobin 8.0. INR 1.2. Influenza A and B, blood culture x2 and thecal are negat jyotsna. ASSESSMENT: 1. Chronic obstructive pulmonary disease with acute exacerbation secondary to blood. 2. Hemoptysis secondary hypercoagulable state. 3. Acute hypoxic respiratory failure, resolved. 4. Adenocarcinoma of the right upper lobe, possibly a surgical candidate. Though, the patient has m issed multiple followup appointments. PLAN: The patient will need to see me in the outpatient setting with the pulmonary function studies that are already scheduled. At this point, she appears to be stable for transition to home. She rem ains in the hospital on Thursday, and it would be reasonable to have Oncology come by and visit with he r. The plan of action has been explained to her on many different occasions and she has a hard time remembering her obligations.
[2017-11-22 05:19] LABS: Hemoglobin 8.9 g/dL (12.0-16.0)
[2017-11-22] MEDS: Doxycycline 100 MG CAP PO SCH ×2 (07:51→20:50)
[2017-11-22] MEDS: Cefdinir 300 MG CAP PO SCH ×2 (07:51→20:51)
[2017-11-22] MEDS: Cyanocobalamin (Vitamin B-12) 1,000 MCG TAB PO SCH (07:51)
[2017-11-22] MEDS: Saccharomyces boulardii 250 MG CAP PO SCH (07:52)
[2017-11-22] MEDS: predniSONE 20 MG TAB PO SCH ×2 (07:52→16:02)
[2017-11-22] MEDS: HYDROcodone/Acetaminophen 5/325 mg Tablet PO PRN ×3 (07:52→22:01)
[2017-11-22] MEDS: risperiDONE 1 MG TAB PO SCH ×2 (07:52→20:50)
[2017-11-22] MEDS: Citalopram 20 MG TAB PO SCH (07:53)
[2017-11-22] MEDS: clonazePAM 1 MG TAB PO SCH ×2 (07:53→20:51)
[2017-11-22] MEDS: Folic Acid 1 MG TAB PO SCH (07:53)
[2017-11-22] MEDS: Docusate 100 MG CAP PO SCH ×2 (07:53→20:51)
--- NOTE | 2017-11-22 20:45 | PDOC.PN ---
- Subjective Encounter Start Date: 11/22/17 Encounter Start Time: 14:00 Patient seen and examined. No new complaints. No overnight events - Objective Resuscitation Status: Resuscitation Status FULL:Full Resuscitation MAR Reviewed: Yes Vital Signs & Weight: Vital Signs (12 hours) Temp Pulse Resp BP Pulse Ox 11/22/17 18:18 72 16 99 11/22/17 16:00 99.2 F 85 16 148/78 H 95 11/22/17 12:00 99.2 F 85 16 148/78 H 95 11/22/17 10:54 85 16 95 Weight Admit Weight 164 lb Weight 164 lb I&O: 11/21/17 11/22/17 11/23/17 06:59 06:59 06:59 Intake Total 0710 879 1617 Balance 5514 738 6211 Result Diagrams: 11/22/17 04:23 11/20/17 03:50 Additional Labs: Accuchecks 11/22/17 11/22/17 11/22/17 20:03 16:15 11:14 POC Glucose 157 H 135 H 143 H Phys Exam - Physical Examination Constitutional: NAD Respiratory: no wheezing, no rhonchi Scat rhonchi Cardiovascular: RRR, no rub Gastrointestinal: soft, non-tender, positive bowel sounds Musculoskeletal: no edema Neurological: moves all 4 limbs Dx/Plan - Plan DVT proph w/SCDs IMPRESSION: 1. Coagulopathy due to Coumadin toxicity. s/p Vit K 2. Acute hypoxic respiratory failure secondary to chronic obstructive pulmonary disease exacerbation/pneumonia suspected pneumococcal / Hemoptysis 3. History of lung cancer. 4. 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 Crohn's disease with h/o Colon Ca 6. Diabetes mellitus type 2. 7. Hypertension. 8. Anxiety and depression. 9. Tobacco dependence. Counselled 10. Anemia of blood loss ?acute. 11. Suspected Chronic GI bleeding PLAN: * Warfarin on hold for 3 days per pulmonary * Probable dc in AM if afebrile * Cont PPI * Cont to monitor * Pulm following - Possible dc in AM if afebrile Review of Systems - Review of Systems Cardiovascular: negative: chest pain, palpitations, orthopnea, paroxysmal nocturnal dyspnea, edema, light headedness Gastrointestinal: negative: Nausea, Vomiting, Abdominal Pain, Diarrhea, Constipation, Melena, Hematochezia - Medications/Allergies Allergies/Adverse Reactions: Allergies Allergy/AdvReac Type Severity Reaction Status Date / Time iodine Allergy Severe Anaphylaxis Verified 11/18/17 21:46 clarithromycin [From Biaxin] Allergy Rash Verified 11/18/17 21:46 Medications: Current Medications Acetaminophen (Tylenol) 650 mg PO Q4H PRN PRN Reason: Headache/Fever or Pain Last Admin: 11/22/17 16:02 Dose: 650 mg Hydrocodone Bitart/Acetaminophen ([place] 5/325) 1 tab PO Q6H PRN PRN Reason: Moderate Pain (4-6) Last Admin: 11/22/17 16:01 Dose: 1 tab Albuterol/Ipratropium (Duoneb) 3 ml NEB Q2H PRN PRN Reason: SOB &/or Wheezing Albuterol/Ipratropium (Duoneb) 3 ml NEB [id number] [facility] Last Admin: 11/22/17 18:18 Dose: 3 ml Calcium Carbonate (Tums) 1,000 mg PO Q4H PRN PRN Reason: Heartburn or Indigestion Cefdinir (Omnicef) 300 mg PO BID [facility] Last Admin: 11/22/17 07:51 Dose: 300 mg Citalopram Hydrobromide (Celexa) 20 mg PO DAILY [facility] Last Admin: 11/22/17 07:53 Dose: 20 mg Clonazepam (Klonopin) 1 mg PO BID [facility] Last Admin: 11/22/17 07:53 Dose: 1 mg Clonidine (Catapres) 0.1 mg PO Q4H PRN PRN Reason: Systolic BP > 180 Cyanocobalamin (Vitamin B-12) 1,000 mcg PO DAILY [facility] Last Admin: 11/22/17 07:51 Dose: 1,000 mcg Dextrose/Water (Dextrose 50%) 25 gm SLOW IVP PRN PRN PRN Reason: Hypoglycemia Docusate Sodium (Colace) 100 mg PO BID [facility] Last Admin: 11/22/17 07:53 Dose: Not Given Doxycycline Hyclate (Vibramycin) 100 mg PO BID [facility] Last Admin: 11/22/17 07:51 Dose: 100 mg Folic Acid (Folvite) 1 mg PO DAILY [facility] Last Admin: 11/22/17 07:53 Dose: 1 mg Glucagon (Glucagon) 1 mg IM PRN PRN PRN Reason: Hypoglycemia Hydralazine HCl (Apresoline) 10 mg SLOW IVP Q4H PRN PRN Reason: SBP Greater Than 180 Dextrose/Water (D5w) 1,000 mls @ 0 mls/hr IV .Q0M PRN; As Directed PRN Reason: Hypoglycemia Insulin Human Regular (Humulin R) 0 units SC .MILD SLIDING SCALE PRN PRN Reason: Mild Correctional Scale Insulin Human Regular (Humulin R) 0 units SC .BEDTIME SLIDING SC PRN PRN Reason: Bedtime Correctional Scale Magnesium Hydroxide (Milk Of Magnesium) 30 ml PO DAILYPRN PRN PRN Reason: Constipation Mineral Oil/White Petrolatum (Eucerin Cream) 0 gm TOP BIDPRN PRN PRN Reason: Dry Skin Miscellaneous Medication (Pharmacy To Dose) 1 each IVPB PRN PRN PRN Reason: Pharmacy to dose Ondansetron HCl (Zofran Odt) 4 mg PO Q6H PRN PRN Reason: Nausea/Vomiting Pantoprazole Sodium (Protonix) 40 mg PO DAILY [facility] Last Admin: 11/22/17 07:51 Dose: 40 mg Polyethylene Glycol (Miralax) 17 gm PO DAILYPRN PRN PRN Reason: Constipation Prednisone (Prednisone) 20 mg PO BID-[facility] Last Admin: 11/22/17 16:02 Dose: 20 mg Risperidone (Risperidone) 2 mg PO BID [facility] Last Admin: 11/22/17 07:52 Dose: 2 mg Saccharomyces Boulardii (Florastor) 250 mg PO DAILY [facility] Last Admin: 11/22/17 07:52 Dose: 250 mg Senna (Senokot) 2 tab PO HSPRN PRN PRN Reason: Constipation Trazodone HCl (Desyrel) 100 mg PO HS PRN PRN Reason: Insomnia Last Admin: 11/21/17 20:01 Dose: 100 mg
[2017-11-22] MEDS: traZODone HCl 50 MG TAB PO PRN (20:51)
--- NOTE | 2017-11-22 23:59 | PRG ---
DATE OF SERVICE: 11/22/2017 SERVICE: Pulmonary Medicine. INTERVAL HISTORY: The patient doing fine from a respiratory standpoint. She has been off oxygen sin ce yesterday. She has been up and down stairs all day long smoking cigarettes. Otherwise, she is in her usual state of health. Her breathing is much improved. She continues to have a cough, but she denies any hemoptysis. PHYSICAL EXAMINATION: VITAL SIGNS: Currently afebrile with T-max of 99.2. Pulse 85, blood pressure 148/78, respirations 1 6, saturation 99% on room air. GENERAL: Patient is awake, alert, in no apparent distress. LUNGS: Decent air entry. Prolonged expiratory phase and some minimal wheezing is present. No rhonc hi or crackles are appreciated. HEART: Normal rate, regular. ABDOMEN: Soft, nontender, nondistended. Bowel sounds are positive. MUSCULOSKELETAL: No cyanosis or clubbing. No pitting in the bilateral lower extremities. NEUROLOGIC: Grossly nonfocal. LABORATORY DATA: Hemoglobin is trending at 8.9. INR 1.2. Blood sugars ranged from 115 to 160. Blo od cultures x2 remain negative. ASSESSMENT: 1. Chronic obstructive pulmonary disease with acute exacerbation secondary to blood. 2. Hemoptysis secondary to hypercoagulable state, resolved. 3. Acute hypoxic respiratory failure, resolved. 4. Adenocarcinoma of the right upper lobe, possibly a surgical candidate. PLAN: The patient has PFTs scheduled for the of this month. After this is done, she is to tell Dr. Roper, her surgeon, that she has had these things done, and his plan is to get her in at th at time. Apparently, she has had multiple PFTs that were scheduled previously and she stood up these appointments. The friend is here today and tells me that she is a little bit worried about possibly undergoing surgery. I have reminded her that if she is a surgical candidate, it is important for us to move as soon as safe with a surgical procedure and by kicking the can down the road repeatedly, t hings can only get worse, Pulmonary will continue to follow while she remains in house, but from my perspective, she is stable for transition in the hospital.
[2017-11-23] MEDS ORDERED: Diphenoxylate HCl/Atropine Tablet PO SCH (07:15)
[2017-11-23] MEDS ORDERED: Diphenoxylate HCl/Atropine Tablet PO PRN (07:16)
[2017-11-23 07:53] VITALS: TEMP 97.9
[2017-11-23] MEDS: Cefdinir 300 MG CAP PO SCH (09:22)
[2017-11-23] MEDS: HYDROcodone/Acetaminophen 5/325 mg Tablet PO PRN (09:23)
[2017-11-23] MEDS: Cyanocobalamin (Vitamin B-12) 1,000 MCG TAB PO SCH (09:27)
[2017-11-23] MEDS: clonazePAM 1 MG TAB PO SCH (09:27)
[2017-11-23] MEDS: Folic Acid 1 MG TAB PO SCH (09:27)
[2017-11-23] MEDS: predniSONE 20 MG TAB PO SCH (09:27)
[2017-11-23] MEDS: Citalopram 20 MG TAB PO SCH (09:27)
[2017-11-23] MEDS: risperiDONE 1 MG TAB PO SCH (09:27)
[2017-11-23] MEDS: Docusate 100 MG CAP PO SCH (09:28)
[2017-11-23] MEDS: Doxycycline 100 MG CAP PO SCH (09:28)
[2017-11-23] MEDS: Saccharomyces boulardii 250 MG CAP PO SCH (09:29)
--- NOTE | 2017-11-23 10:49 | PRG ---
DATE OF SERVICE: 11/23/2017 SERVICE: Pulmonary Medicine. INTERVAL HISTORY: The patient is doing fine from a respiratory standpoint. She is hoping to go home today, which is perfectly reasonable. I provided her with a prescription for Anoro, which is the ma dication unlike for her to use in the outpatient setting up until her pulmonary function studies, holly melendez is already scheduled for the of this month. Otherwise, there has been no interval change to her condition. Nursing reports no overnight events. PHYSICAL EXAMINATION: VITAL SIGNS: Afebrile, pulse 81, blood pressure 159/82, respirations 16 and saturation 92% on room a ir. GENERAL: The patient is awake and alert, in no apparent distress. LUNGS: Decent air entry. Rhonchi are still present. There is a slightly prolonged expiratory phase . That being said, the air entry is much improved. Minimal wheezing is present. No crackles. HEART: Normal rate, regular. ABDOMEN: Soft, nontender and nondistended. Bowel sounds positive. MUSCULOSKELETAL: No cyanosis or clubbing. No pitting in the bilateral lower extremities. NEUROLOGIC: Grossly nonfocal. LABORATORY DATA: WBC 10.9. Hemoglobin 8.9 and up trending. ASSESSMENT: 1. Chronic obstructive pulmonary disease with acute exacerbation secondary to blood. 2. Hemoptysis secondary to coagulopathy, iatrogenic. 3. Acute hypoxic respiratory failure, resolved. 4. Adenocarcinoma of the right upper lobe, possibly a surgical candidate. PLAN: The patient will be discharged home today. I provided her with a prescription for Anoro Ellip ta, which she is to take on a daily basis. She will have her pulmonary function studies on 12/03, wh ich I have reminded her about. She will return to my clinic as previously directed. After the PFTs are performed, she will need to touch base with Dr. Roper, to determine whether or not he deems her a surgical candidate. At this point, she has no further requirements for inpatient [facility] opinion and I will sign off. Please call with additional questions or concerns.
[2017-11-23 11:19] VITALS: BP 118/89
--- NOTE | 2017-11-23 19:28 | DIS ---
DATE OF DISCHARGE: 11/23/2017 DISCHARGE DISPOSITION: Home. FOLLOWUP: Follow up with the primary care physician at [facility] in 1 week. Patient has a lso seen [facility] in the past. She will either go to [facility] or [facility]. ALLERGIES: The patient is allergic to IODINE and CLARITHROMYCIN. The patient will follow up with Dr. Dale, as scheduled. The patient was seen and examined on the day of discharge. Denies any new complaints. The patient will resume Coumadin tomorrow. She was advised to follow up with [facility] Clinic. DISCHARGE MEDICATIONS: 1. Omnicef 300 mg b.i.d. #10. 2. Doxycycline 100 mg b.i.d. #10. 3. Other home medications were resumed. INPATIENT PROCEDURES: None. INPATIENT CONSULTANTS: Pulmonary, Dr. Dale and GI, Dr. Low. BRIEF HOSPITAL COURSE: The patient is a 61-year-old female with COPD, pulmonary embolism on anticoag ulation and lung cancer who presented to the hospital due to elevated INR from the Coumadin clinic. Please refer to the history and physical dated 11/18/2017 for further details. The patient was admitted to the hospital with the diagnosis of Coumadin toxicity with acute hypoxic r espiratory failure secondary to chronic obstructive pulmonary disease exacerbation with pneumonia. H er INR on admission was severely elevated. Next day after vitamin K, it was 19.5. Her H&H on admiss ion was 8.2 compared to 13 one week ago. Patient was seen by Pulmonary, Dr. Dale for possible raj eolar hemorrhage as well as GI, Dr. Low due to positive Hemoccult blood. Her H&H remained stable. For this reason, patient did not have any procedures like bronchoscopy or EGD done. Patient was placed on oxygen, nebulizer treatment as well as antibiotics for acute hypoxic respirator y failure with COPD exacerbation with suspected pneumonia. She has been ambulating in the [facility] wi thout any oxygen supplementation. She appears stable for discharge. FINAL DIAGNOSES: 1. Coagulopathy due to Coumadin toxicity, resolved after vitamin K. 2. Acute hypoxic respiratory failure secondary to chronic obstructive pulmonary disease exacerbation with suspected pneumonia, questionable pneumococcal. 3. Hemoptysis secondary to coagulopathy, resolved. 4. History of lung cancer. 5. History of pulmonary embolism with IVC thrombosis. 6. Crohn's disease with history of colon cancer. 7. Diabetes mellitus type 2. 8. Hypertension. 9. Anxiety and depression. 10. Tobacco dependence. Patient was extensively counseled. 11. Acute blood loss anemia, probably secondary to gastrointestinal bleeding with hemoptysis. Plan of care was discussed with the patient in detail. She stated understanding.
== END 2017-11-23 12:30 | disposition home or self-care (01) | DRG 813 ==
LOC: ERS 15:46 → T4-A 18:06
PROVIDERS: ADMIT Internal Medicine; ATTEND Internal Medicine
DX: D68.32 Hemorrhagic disorder due to extrinsic circulating anticoagulants (principal); J96.01 Acute respiratory failure with hypoxia; J18.9 Pneumonia, unspecified organism; J44.0 Chronic obstructive pulmonary disease with (acute) lower respiratory infection; C34.90 Malignant neoplasm of unspecified part of unspecified bronchus or lung; D62 Acute posthemorrhagic anemia; K92.2 Gastrointestinal hemorrhage, unspecified; R04.2 Hemoptysis; J44.1 Chronic obstructive pulmonary disease with (acute) exacerbation; D64.9 Anemia, unspecified; B19.20 Unspecified viral hepatitis C without hepatic coma; E11.9 Type 2 diabetes mellitus without complications; F17.210 Nicotine dependence, cigarettes, uncomplicated; T45.515A Adverse effect of anticoagulants, initial encounter; Z86.711 Personal history of pulmonary embolism; I10 Essential (primary) hypertension; F41.9 Anxiety disorder, unspecified; F32.9 Major depressive disorder, single episode, unspecified
CPT/HCPCS: 36415; 36416; 71045; 76999; 80053; 80069; 82274; 82553; 82728; 83540; 83550; 83605; 83690; 83735; 83880; 84484; 85014; 85018; 85025; 85049; 85610; 85730; 87040; 93005; 94640; 94644; 96374; 96375; A4216; C9113; J0692; J1100; J1756; J2270; J2920; J3370; J3430; J3475; J7050; J7506; J7611; J7620

== ENCOUNTER 2017-12-03 13:07 | Outpatient (CLI) | payer MEDICARE, MEDICAID ==
--- NOTE | 2017-12-17 09:55 | PFT ---
PATIENT HISTORY: HEIGHT: 62 IN WEIGHT: 160 SMOKER: YES HOW LON YRS PACKS PER DAY: .5 PRODUCTIVE COUGH: YES LUNG DISEASE: PHYSICIAN INTERPRETATION FINAL REPORT:[employer] Sales Representative comments: patient had good effort and cooperation FVC 1.76 (63%), FEV1 0.97 (48%), FEV1/FVC 0.55. TLC 4.17 (96%), FRC, 2.49 (103%), RV 2.30 (144%). Diffusion 6.21 (34%). There is a reduction to both the FEV1 and the FVC. The ratio is consistent with obstructive airflow limitation. There is no significant improvement following administration of bronchodilator. Flow volume loops are consistent with obstructive airflow limitation on the expiratory limp. Inspiratory limb is normal. The total lung capacity is normal, residual volume is elevated. Diffusion capacity is severely reduced. IMPRESSION: Overall, these pulmonary function studies are consistent with severe obstructive lung disease with no significant reversibility, airtrapping, and severe reduction in gas exchange. [employer] Sales Representative: ASHWINI Pharmacy Specialist: ASHWINI PEREZ
== END 2017-12-03 13:08 | disposition home or self-care (01) ==
LOC: CP 13:07
PROVIDERS: ATTEND Internal Medicine
DX: J44.9 Chronic obstructive pulmonary disease, unspecified (principal); R91.8 Other nonspecific abnormal finding of lung field
CPT/HCPCS: 94060; 94727; 94729

== ENCOUNTER 2017-12-22 10:45 | Observation (INO) | payer MEDICARE, MEDICAID ==
[2017-12-22 11:16] LABS: #Eosinphils 0.2 thou/uL (0.0-0.7); #Lymphocytes 2.2 thou/uL (1.20-3.40); #Monocytes 1.1 thou/uL (0.11-0.59); #Neutrophils 7.4 thou/uL (1.40-6.50); %Basophils 0.1 % (0.0-1.0); %Eosinophils 1.8 % (0.0-10.0); %Lymphocytes 20.5 % (21.0-51.0); %Monocytes 9.9 % (0.0-10.0); %Neutrophils 67.7 % (42.0-75.0); Hemoglobin 11.4 g/dL (12.0-16.0); Mean Corpuscular HGB CONC 32.2 g/dL (32.0-36.0); Mean Corpuscular Hemoglobin 26.7 pg (27.0-31.0); Platelet Count 355 thou/uL (130-400); Red Blood Cell (RBC) Count 4.25 mill/uL (4.20-5.40); White Blood Cell (WBC) Count 10.9 thou/uL (4.8-10.8)
[2017-12-22 11:29] LABS: INR-International Normal Ratio 2.7; Prothrombin Time 29.5 SEC (12.0-14.7)
[2017-12-22 11:32] LABS: PTT 67.7 SEC (22.9-36.1)
[2017-12-22 11:34] LABS: ALT (SGPT) 19 U/L (8-55); AST (SGOT) 18 U/L (5-34); Albumin 3.9 g/dL (3.4-4.8); Alkaline Phosphatase 78 U/L (40-150); Anion Gap 11 mmol/L (10-20); BUN (Urea Nitrogen) 6 mg/dL (9.8-20.1); Bilirubin, Total 0.3 mg/dL (0.2-1.2); CK (CPK) 85 U/L (29-168); Calc. Creatinine Clearance 0 mL/min (70-130); Calcium 9.3 mg/dL (7.8-10.44); Carbon Dioxide 27 mmol/L (23-31); Chloride 98 mmol/L (98-107); Estimated GFR-MDRD 82; Globulin 3.8 g/dL (2.4-3.5); Glucose 113 mg/dL (80-115); Lipase 8 U/L (8-78); Protein, Total 7.7 g/dL (6.0-8.3); Sodium 132 mmol/L (136-145)
[2017-12-22 11:38] LABS: CKMB 1.6 ng/mL (0-6.6); Troponin I 0.015 ng/mL (< 0.028)
--- NOTE | 2017-12-22 11:45 | RAD ---
PORTABLE CHEST ONE VIEW: Date: 12-22-17 Time: 11:25 a.m. History: Hypotension. FINDINGS: Comparison made with exam of 11-18-17. The heart size is normal. The lungs are expanded without confluent areas of consolidation, pneumothor ax, or pleural effusions. Previously noted infiltrates have resolved in the interim. IMPRESSION: No acute process. POS: QUIANA
[2017-12-22] MEDS ORDERED: Morphine 2 MG/ML SYRINGE ONE (12:19)
[2017-12-22] MEDS ORDERED: predniSONE 20 MG TAB ONE (12:20)
[2017-12-22] MEDS ORDERED: methylPREDNISolone Sod Succ/PF 125 MG/2 ML VIAL ONE (12:22)
[2017-12-22] MEDS ORDERED: Water For Inject, Bacteriostat 30 ML ONE (12:22)
[2017-12-22 12:37] LABS: Actual Bicarbonate (HCO3a) 26.8 mEq/L (22-26); Analyzer IN Cardio ER; Base Excess (BEa) 0.2 mEq/L (0 (+/-) 2.5); CO2 Tension 52.7 mmHg (35.0-45.0); Calcium, Ionized 1.2 mmol/L (1.12-1.30); Hematocrit-ABG 37.1 % (36.0-47.0); Hemoglobin (Hb) 10.6 g/dL (12.0-16.0); O2 Tension (PaO2) 85.2 mmHg (80.0-100.0); pH, Arterial 7.32 (7.35-7.45)
[2017-12-22 12:38] LABS: ALV-art Gradient 48.565 (0-20); Puncture Site RRA
[2017-12-22] MEDS ORDERED: diphenhydrAMINE 50 MG/ML VIAL ONE (12:45)
[2017-12-22] MEDS ORDERED: Famotidine/PF 20 mg/2ml Vial ONE (12:45)
[2017-12-22 12:55] LABS: Prothrombin Time 32.5 SEC (12.0-14.7)
[2017-12-22 13:14] LABS: Bilirubin Negative (Negative); Blood, Urine Small (Negative); Clarity CLOUDY (Clear); Glucose, Urine (Dipstick) Negative (Negative); Leukocyte Negative (Negative); Nitrite Negative (Negative); Protein, Urine (Dipstick) Negative (Neg-Trace); Specific Gravity, Urine 1.008 (1.002-1.036); Urobilinogen 0.2 mg/dL (0.2-1.0); pH, Urine 5.5 (5.0-9.0)
[2017-12-22 13:16] LABS: Bacteria/HPF None Seen HPF (None Seen); Hyaline Casts/LPF 0-3 HYALINE CAST LPF (0-3 Hyaline); Pathc Cast-AUWi Flag 0.13 (0-2.49); Squamous Epithelial 0-3 HPF (0-3); WBC/HPF 0-3 HPF (0-3)
--- NOTE | 2017-12-22 13:58 | CT ---
CT PULMONARY ANGIOGRAM WITH IV CONTRAST AND 3D POSTPROCESSING: Date: 12/22/17 HISTORY: Chest pain. Weakness. Productive cough. Lung cancer. Previous pulmonary embolism. COMPARISON: 09/06/17. FINDINGS: Opacification of pulmonary arterial vasculature is suboptimal with attenuation values of 182 in the m ain pulmonary artery. No filling defects are seen in the main pulmonary arteries. Peripheral embolism cannot be excluded on this study. The thoracic aorta is better opacified than the pulmonary arterial vasculature without aneurysm or dissection. No pleural or pericardial effusions are seen. The right hilar mass is increased in size, measuring ab out 5.0 cm. Adjacent patchy consolidation has developed in the posteromedial aspect of the right lowe r lobe. There is a new, 14.0 mm, nodule adjacent to this mass in the right lower lobe, and an 11.0 mm nodule in the posterolateral aspect of the right middle lobe. Interstitial thickening is seen emanat ing from the right hilar mass which may be due to lymphangitic spread or post radiation changes. The peripheral nodule in the lingula is stable. Degenerative changes in the spine. Small hiatal hernia is present. IMPRESSION: 1. No CT evidence of central pulmonary embolism. Peripheral embolism cannot be excluded. 2. Interval worsening of intrathoracic malignancy/metastatic disease since 09/06/17. POS: OFF
--- NOTE | 2017-12-22 14:55 | PDOC.PN ---
- Subjective Encounter Start Date: 12/22/17 Encounter Start Time: 14:54 Patient seen and examined. Note dictated. - Objective MAR Reviewed: Yes Result Diagrams: 12/22/17 11:08 12/22/17 11:08 Radiology Reviewed by me: Yes (CTA - wosening lung CA, ) EKG Reviewed by me: Yes (SR) Phys Exam - Physical Examination Ill appearing HEENT: moist MMs, sclera anicteric, oral pharynx no lesions Neck: no JVD, supple Respiratory: wheezing present Scat rhonchi, Bibasilar rales, Symmetrical, Chest wall tenderness on the Rt Cardiovascular: RRR, no significant murmur, no rub no heaves Gastrointestinal: soft, non-tender, no distention, positive bowel sounds Musculoskeletal: no edema Neurological: non-focal, normal sensation, moves all 4 limbs Psychiatric: A&O x 3 Skin: no rash Dx/Plan - Plan * Dicated. Full code Review of Systems - Review of Systems Constitutional: weakness, malaise. negative: fever, chills, sweats Eyes: negative: Pain, Vision Change, Conjunctivae Inflammation, Eyelid Inflammation, Redness ENT: negative: Ear Pain, Ear Discharge, Nose Pain, Nose Discharge, Nose Congestion, Mouth Pain, Mouth Swelling, Throat Pain, Throat Swelling Respiratory: Shortness of Breath, SOB with Excertion, Wheezing. negative: Cough , Dry, Hemoptysis, Pleuritic Pain, Sputum Cardiovascular: chest pain (Rt sided). negative: palpitations, orthopnea, paroxysmal nocturnal dyspnea, edema, light headedness Gastrointestinal: negative: Nausea, Vomiting, Abdominal Pain, Diarrhea, Constipation, Melena, Hematochezia Genitourinary: negative: Dysuria, Frequency, Incontinence, Hematuria, Retention Musculoskeletal: negative: Neck Pain, Shoulder Pain, Arm Pain, Back Pain, Hand Pain, Leg Pain, Foot Pain Skin: negative: Rash, Lesions, Saud, Bruising, Other Neurological: negative: Weakness, Numbness, Incoordination, Change in Speech, Confusion, Seizures - Medications/Allergies Allergies/Adverse Reactions: Allergies Allergy/AdvReac Type Severity Reaction Status Date / Time iodine Allergy Severe Anaphylaxis Verified 11/18/17 21:46 clarithromycin [From Biaxin] Allergy Rash Verified 11/18/17 21:46
--- NOTE | 2017-12-22 15:03 | HP ---
DATE OF ADMISSION: 12/22/2017 PRIMARY CARE PHYSICIAN: [facility]. CHIEF COMPLAINT: Chest discomfort and lightheadedness of 3 days' duration. PRIMARY PAGE DESIGNER: Dr. Dale. PRIMARY ONCOLOGIST: Dr. Carrasco. HISTORY OF PRESENT ILLNESS: Patient is a 62-year-old female with COPD, pulmonary embolism on anticoagulation and lung cancer who presented to the emergency room with above complaints. The patient was seen at [facility] for INR check. She was found to have hypotension along with chest discomfort for which she was advised to come to the emergency room. Over the last 3-4 days, patient has on and off chest discomfort that is over the right side of the chest, worse on coughing. She also has intermittent shortness of breath with wheezing and thick whitish productive cough. No fevers or chills reported. She has been feeling generally weak and tired. No significant dyspnea on exertion reported. She also felt lightheaded, dizzy without any blurring of vision or passing out. No palpitations or focal neurologic deficit reported. At [facility], her blood pressure was 76/ 81 with hemoglobin of 12. PAST MEDICAL HISTORY: 1. Recent hospitalization for coagulopathy and respiratory failure. 2. COPD. 3. History of lung cancer, scheduled for chemotherapy later this month. 4. History of pulmonary embolism on anticoagulation. Patient also has IVC filter. 5. Crohn's disease with history of colon cancer. 6. Diabetes mellitus type 2. 7. Hypertension. 8. Anxiety and depression. 9. Ongoing tobacco abuse. 10. Chronic anemia. 11. Crohn's disease with history of colon cancer. 12. Diabetes mellitus type 2. 13. Hypertension. PAST SURGICAL HISTORY: 1. Colectomy. 2. Hysterectomy. 3. Cholecystectomy. ALLERGIES: IODINE, and CLARITHROMYCIN. CURRENT HOME MEDICATIONS: The patient does not remember any of her home medication. She states that she was recently started on Lasix. FAMILY HISTORY: Negative for premature coronary artery disease. SOCIAL HISTORY: She continues to smoke up to 1 pack a day. She lives at [facility]. No alcohol or drug use. REVIEW OF SYSTEMS: Please refer to my progress note. PHYSICAL EXAMINATION: Please refer to my progress note. LABORATORY DATA: Please refer to my progress note. IMPRESSION: 1. Hypotension with upper respiratory tract symptoms. Possibilities include hypotension due to infectious etiology versus dehydration. Her usual hemoglobin is 7-8 range. Her hemoglobin at [facility] was 12. The patient has not been eating and drinking well recently. 2. History of pulmonary embolism on anticoagulation, INR of 3.0 today. The patient also has IVC filter. 3. Crohn's disease with chronic intermittent diarrhea. 4. Diabetes mellitus type 2. 5. History of hypertension. 6. Anxiety and depression. 7. Tobacco dependence. 8. History of lung cancer, scheduled for chemotherapy on 01/04/2018. 9. Chronic obstructive pulmonary disease with chronic obstructive pulmonary disease exacerbation and suspected pneumonia, questionable pneumococcal. 10. Hyponatremia. 11. Chronic kidney disease stage 2. PLAN: Patient will be monitored in the telemetry unit as 23-hour observation. We will continue IV fluids. Echocardiogram will be obtained for right-sided chest discomfort which appears to be due to accessory muscle use. Empiric antibiotics will be started for suspected pneumonia. We will get serial troponins. We will confirm home medications. Start insulin sliding scale, breathing treatment and continue IV steroids. Plan of care was discussed with the patient in detail. She stated understanding. CHRIS
[2017-12-22 15:11] LABS: Troponin I Less than 0.010 ng/mL (< 0.028)
[2017-12-22] MEDS ORDERED: Milk Of Magnesia 30 ML UDCUP PO PRN (16:34)
[2017-12-22] MEDS ORDERED: Acetaminophen 325 MG TAB PO PRN (16:34)
[2017-12-22] MEDS ORDERED: Nitroglycerin 0.4 MG TAB (25 Tab Bottle) PO PRN (16:34)
[2017-12-22] MEDS ORDERED: Senokot 8.6 MG TAB PO PRN (16:34)
[2017-12-22] MEDS ORDERED: Calcium Carbonate 500 MG ChewTAB PO PRN (16:34)
[2017-12-22] MEDS ORDERED: Insulin Regular 300 UNITS/3 ML VIAL SC PRN ×2 (16:34)
[2017-12-22] MEDS ORDERED: Dextrose 5% in Water 1,000 ML IV PRN (16:34)
[2017-12-22] MEDS ORDERED: Dextrose 50% Abboject 50 ML SYRINGE SLOW IVP PRN (16:34)
[2017-12-22] MEDS ORDERED: Acetaminophen/Codeine 30-300mg Tablet PO PRN (16:56)
[2017-12-22] MEDS ORDERED: Cefdinir 300 MG CAP PO SCH (17:00)
[2017-12-22] MEDS ORDERED: Warfarin Sodium 7.5 MG TAB PO SCH (17:00)
[2017-12-22 18:11] LABS: Troponin I Less than 0.010 ng/mL (< 0.028)
[2017-12-22] MEDS: Sodium Chloride 0.9% 1,000 ML IV SCH ×2 (18:36→22:21)
[2017-12-22] MEDS: predniSONE 20 MG TAB PO SCH (18:36)
[2017-12-22 19:52] VITALS: BMI 33.0
[2017-12-23 04:48] LABS: Platelet Count 297 thou/uL (130-400)
[2017-12-23 04:51] LABS: INR-International Normal Ratio 3.7; Prothrombin Time 38.2 SEC (12.0-14.7)
[2017-12-23 04:59] LABS: Anion Gap 11 mmol/L (10-20); BUN (Urea Nitrogen) 6 mg/dL (9.8-20.1); Calc. Creatinine Clearance 123 mL/min (70-130); Calcium 8.6 mg/dL (7.8-10.44); Carbon Dioxide 23 mmol/L (23-31); Chloride 109 mmol/L (98-107); Estimated GFR-MDRD Greater than 90; Glucose 151 mg/dL (80-115); Potassium 4.5 mmol/L (3.5-5.1); Sodium 138 mmol/L (136-145)
[2017-12-23] MEDS: predniSONE 20 MG TAB PO SCH (08:26)
[2017-12-23] MEDS: Sodium Chloride 0.9% 1,000 ML IV SCH ×2 (08:27→13:09)
[2017-12-23] MEDS ORDERED: Cefdinir 300 MG CAP PO SCH (09:00)
[2017-12-23] MEDS ORDERED: Aspirin 81 mg Enteric Coated Tablet PO SCH (09:00)
[2017-12-23] MEDS ORDERED: Loperamide HCl 2 MG CAP PO PRN (09:52)
[2017-12-23] MEDS ORDERED: HYDROcodone/Acetaminophen 5/325 mg Tablet PO PRN (09:52)
[2017-12-23 12:14] VITALS: BP 102/57; TEMP 98.7
--- NOTE | 2017-12-23 12:48 | DIS ---
The patient will be discharged home if the C. diff testing is negative. DISCHARGE DISPOSITION: Home. DISCHARGE FOLLOWUP: Follow up with primary care physician at [facility]. DISCHARGE INSTRUCTIONS: 1. Hold Coumadin today. The patient was advised to get an INR checked tomorrow. Coumadin clinic to adjust the Coumadin dosing. 2. The patient was advised to hold Lasix and amlodipine. 3. Fall precaution was emphasized. The patient was advised to return to emergency room if she devel ops any new symptoms. 4. INR on the day of discharge is 3.7. The patient did not receive any warfarin yesterday. 5. The patient was seen on the day of discharge, denies any new complaints. Shortness of breath has improved. Orthostatic vitals have been negative. Her last blood pressure was systolic 102. DISCHARGE MEDICATIONS: 1. Omnicef 300 mg b.i.d. for 7 days. 2. Prednisone taper. 3. Other home medications were resumed except for Lasix and amlodipine. BRIEF HOSPITAL COURSE: The patient is a 62-year-old female with COPD, pulmonary embolism on anticoag ulation and lung cancer who presented to the emergency room with chest discomfort and lightheadedness of 3 days duration. She was referred from the [facility]. Please refer to the history and physical dated 12/22/2017 for further details. The patient was admitted to the telemetry unit with the above diagnosis. Blood pressure improved wit h IV fluids. The patient was significantly hemoconcentrated with hemoglobin of 12 at the [facility]. Her hemoglobin and hematocrit this morning was 10.0. Her hemoglobin and hematocrit last m onth was between 7 and 8, which is her baseline. Lasix and amlodipine have been discontinued. She i s currently on room air. She is ambulating in the hallway without any shortness of breath or dizzine ss. She is requesting to be discharged. She was advised to return to emergency room if she develops any new symptoms. Fall precaution was emphasized. FINAL DIAGNOSES: 1. Hypotension secondary to dehydration with over diuresis. The patient was also advised to discont inue amlodipine. Please note that the patient had poor appetite over the past few days. 2. Chronic obstructive pulmonary disease exacerbation with questionable pneumonia. The patient will continue Omnicef with Prednisone taper. 3. History of pulmonary embolism, on anticoagulation. The patient has supratherapeutic INR at 3.7 t kyle. She was advised to hold warfarin today. The patient will get INR checked tomorrow. 4. Crohn disease with chronic intermittent diarrhea. Stool for Clostridium difficile has been sent. She will be discharged home if the Clostridium difficile testing is negative. 5. Diabetes mellitus type 2. 6. Hypertension. 7. Anxiety and depression. 8. Tobacco dependence. The patient was counseled. 9. History of lung cancer. The patient is scheduled to see oncologist on 01/04/2018. Her CT scan s howed worsening of lung cancer. She was extensively counseled to follow up with Dr. Carrasco on the to plan for chemotherapy. Tobacco cessation was extensively emphasized. 10. Hyponatremia secondary to dehydration. Her sodium on the day of discharge is 138 compared to 13 2 on admission. 11. Chronic kidney disease stage 2. 12. Obesity with a BMI of 32.5. Plan of care was discussed with the patient in detail. She stated understanding.
[2017-12-23] MEDS ORDERED: Warfarin Sodium 5 MG TAB PO SCH ×2 (17:00)
[2017-12-23] MEDS ORDERED: Mometasone/Formoterol 120 PUFF INHALER INH SCH (18:30)
[2017-12-24] MEDS ORDERED: Saccharomyces boulardii 250 MG CAP PO SCH (09:00)
[2017-12-24] MEDS ORDERED: Citalopram 20 MG TAB PO SCH (09:00)
[2017-12-24] MEDS ORDERED: Warfarin Sodium 7.5 MG TAB PO SCH (17:00)
--- NOTE | 2018-01-05 14:02 | EKG ---
Test Reason : Blood Pressure : / mmHG Vent. Rate : 074 BPM Atrial Rate : 074 BPM P-R Int : 154 ms QRS Dur : 096 ms QT Int : 418 ms P-R-T Axes : 056 033 085 degrees QTc Int : 463 ms Normal sinus rhythm Nonspecific ST and T wave abnormality No STEMI Abnormal ECG Confirmed by KULWANT Matute, GELY ([id number]), school photograph editor FLORINDA SCHWARZ ([id number]) on 01/05/2018 2:02:33 PM Referred By: Confirmed By:GELY BLUM M.D.
== END 2017-12-23 15:27 | disposition home or self-care (01) ==
LOC: ERS 10:45 → 2SW 14:38
PROVIDERS: ADMIT Internal Medicine; ATTEND Internal Medicine
DX: E86.0 Dehydration (principal); I95.9 Hypotension, unspecified; R07.89 Other chest pain; K50.90 Crohn's disease, unspecified, without complications; F41.8 Other specified anxiety disorders; C80.1 Malignant (primary) neoplasm, unspecified; C78.00 Secondary malignant neoplasm of unspecified lung; E87.1 Hypo-osmolality and hyponatremia; E11.22 Type 2 diabetes mellitus with diabetic chronic kidney disease; F17.210 Nicotine dependence, cigarettes, uncomplicated; I12.9 Hypertensive chronic kidney disease with stage 1 through stage 4 chronic kidney disease, or unspecified chronic kidney disease; N18.2 Chronic kidney disease, stage 2 (mild); D64.9 Anemia, unspecified; J44.1 Chronic obstructive pulmonary disease with (acute) exacerbation; E66.9 Obesity, unspecified; Z68.32 Body mass index [BMI] 32.0-32.9, adult; Z79.51 Long term (current) use of inhaled steroids; Z79.01 Long term (current) use of anticoagulants; Z79.899 Other long term (current) drug therapy; Z95.828 Presence of other vascular implants and grafts; Z90.49 Acquired absence of other specified parts of digestive tract; Z90.710 Acquired absence of both cervix and uterus; Z88.1 Allergy status to other antibiotic agents; Z91.041 Radiographic dye allergy status; Z86.711 Personal history of pulmonary embolism; Z85.038 Personal history of other malignant neoplasm of large intestine
CPT/HCPCS: 71045; 71275; 80048; 82550; 82553; 82805; 82962 ×2; 83605; 83690; 83880; 84484 ×2; 85014; 85018; 85049; 85610 ×3; 85730; 87324; 87449; 93005; 94640 ×3; 94760 ×3; 96360; 96361 ×3; 96374; 96375; 97139; 99285; G0378; 36415; 36416; 80053; 81003; 81015; 84443; 85025; J1200; J2270; J2930; J7506; J7620; S0028

== ENCOUNTER 2018-01-25 11:03 | Outpatient (CLI) | payer MEDICARE, MEDICAID | END 2018-01-26 11:04 | disposition home or self-care (01) | LOC: BICRAD 11:03 | PROVIDERS: ATTEND Internal Medicine Medical Oncology | DX: C34.31 Malignant neoplasm of lower lobe, right bronchus or lung (principal) | CPT/HCPCS: 71046 ==

== ENCOUNTER 2018-01-30 22:27 | Inpatient (IN) | payer MEDICARE, MEDICAID ==
--- NOTE | 2018-01-30 23:02 | RAD ---
SINGLE VIEW CHEST: 01/30/18 COMPARISON: 12/22/17 HISTORY: Dyspnea. FINDINGS: Single view of the chest shows a normal sized cardiomediastinal silhouette. There is bilateral perihi lar prominence which has not changed significantly compared to the prior exam. No consolidation or pl eural effusion are seen. IMPRESSION: Perihilar prominence may represent pulmonary vasculature or perihilar masses. A CT of the chest with contrast is recommended for further evaluation. POS: MARIA GUADALUPE
[2018-01-30 23:23] LABS: #Eosinphils 0.1 thou/uL (0.0-0.7); #Monocytes 0.4 thou/uL (0.11-0.59); #Neutrophils 4.6 thou/uL (1.40-6.50); %Basophils 0.3 % (0.0-1.0); %Eosinophils 1.3 % (0.0-10.0); %Lymphocytes 15.9 % (21.0-51.0); %Monocytes 5.9 % (0.0-10.0); %Neutrophils 76.6 % (42.0-75.0); Hemoglobin 11.4 g/dL (12.0-16.0); Mean Corpuscular HGB CONC 33.7 g/dL (32.0-36.0); Mean Corpuscular Hemoglobin 27.2 pg (27.0-31.0); Mean Corpuscular Volume 80.7 fl (81.0-99.0); Mean Platelet Volume 6.5 fL (7.4-10.4); Platelet Count 223 thou/uL (130-400); RBC Distribution Width 14.5 % (11.5-14.5); Red Blood Cell (RBC) Count 4.18 mill/uL (4.20-5.40); White Blood Cell (WBC) Count 5.9 thou/uL (4.8-10.8)
[2018-01-30 23:30] LABS: INR-International Normal Ratio 1.1; PTT 28.7 SEC (22.9-36.1); Prothrombin Time 14.2 SEC (12.0-14.7)
[2018-01-30 23:31] LABS: D-Dimer Test 2.49 *mcg/mL (0.27-0.43)
[2018-01-30 23:48] LABS: ALT (SGPT) 16 U/L (8-55); AST (SGOT) 17 U/L (5-34); Albumin 3.6 g/dL (3.4-4.8); Alkaline Phosphatase 60 U/L (40-150); Anion Gap 15 mmol/L (10-20); BUN (Urea Nitrogen) 8 mg/dL (9.8-20.1); Bilirubin, Total 0.2 mg/dL (0.2-1.2); CK (CPK) 52 U/L (29-168); Calc. Creatinine Clearance 0 mL/min (70-130); Calcium 9.1 mg/dL (7.8-10.44); Carbon Dioxide 20 mmol/L (23-31); Chloride 103 mmol/L (98-107); Estimated GFR-MDRD Greater than 90; Globulin 3.1 g/dL (2.4-3.5); Glucose 118 mg/dL (80-115); Magnesium 1.7 mg/dL (1.6-2.6); Potassium 3.3 mmol/L (3.5-5.1); Protein, Total 6.7 g/dL (6.0-8.3); Sodium 135 mmol/L (136-145)
[2018-01-30 23:49] LABS: CKMB 3.3 ng/mL (0-6.6); Troponin I 0.052 ng/mL (< 0.028)
[2018-01-31] MEDS ORDERED: methylPREDNISolone Sod Succ/PF 125 MG/2 ML VIAL ONE (00:36)
[2018-01-31] MEDS ORDERED: Enoxaparin Sodium 80 MG/0.8 ML SYRINGE ONE (01:30)
[2018-01-31] MEDS ORDERED: cefTRIAXone\\ROCEPHIN 2 GM VIAL ONE (01:30)
[2018-01-31] MEDS ORDERED: diphenhydrAMINE 50 MG/ML VIAL ONE (01:53)
[2018-01-31] MEDS ORDERED: Famotidine 40 MG/4 ML VIAL SLOW IVP SCH (02:00)
[2018-01-31 03:16] LABS: Bilirubin Negative (Negative); Blood, Urine Negative (Negative); Clarity CLEAR (Clear); Glucose, Urine (Dipstick) Negative (Negative); Leukocyte Negative (Negative); Nitrite Negative (Negative); Protein, Urine (Dipstick) Negative (Neg-Trace); Specific Gravity, Urine 1.008 (1.002-1.036); Urobilinogen 0.2 mg/dL (0.2-1.0); pH, Urine 5.5 (5.0-9.0)
[2018-01-31 03:28] LABS: Lactic Acid 2.5 mmol/L (0.5-2.2)
[2018-01-31 05:18] VITALS: BMI 29.7
[2018-01-31] MEDS ORDERED: Acetaminophen 325 MG TAB PO PRN (05:29)
[2018-01-31] MEDS ORDERED: Artificial Tears 18 DROP/0.9 ML EA EYE PRN (05:29)
[2018-01-31] MEDS ORDERED: hydrALAZINE 20 MG/ML VIAL SLOW IVP PRN (05:29)
[2018-01-31] MEDS ORDERED: Mag-Al 1200 mg/1200 mg/30 ML UDCUP PO PRN (05:29)
[2018-01-31] MEDS ORDERED: Ondansetron HCl/PF 4 MG/2 ML Vial IVP PRN (05:29)
[2018-01-31] MEDS ORDERED: Milk Of Magnesia 30 ML UDCUP PO PRN (05:29)
[2018-01-31] MEDS ORDERED: Loratadine 10 MG TAB PO PRN (05:29)
[2018-01-31] MEDS ORDERED: Ondansetron ODT 4 MG TAB PO PRN (05:29)
[2018-01-31] MEDS ORDERED: Senokot 8.6 MG TAB PO PRN (05:29)
[2018-01-31] MEDS ORDERED: Chloraseptic Spray 180 ml Bottle PO PRN (05:29)
[2018-01-31] MEDS ORDERED: Sodium Chloride 0.65% Nasal 44 ML BOT EA NARE PRN (05:29)
[2018-01-31] MEDS ORDERED: Eucerin (Mineral Oil/Petrolatum,White) 30 gm Jar TOP PRN (05:29)
[2018-01-31] MEDS ORDERED: Sodium Chloride 0.9% 1,000 ML IV SCH (05:30)
[2018-01-31] MEDS: HYDROcodone/Acetaminophen 5/325 mg Tablet PO PRN ×2 (05:48→20:11)
[2018-01-31] MEDS: Mometasone/Formoterol 120 PUFF INHALER INH SCH ×2 (06:41→19:01)
[2018-01-31] MEDS: NS 0.9% w/ 20 MEQ KCL 1,000 ML/1,000 ML BAG IV SCH ×2 (06:52→17:32)
--- NOTE | 2018-01-31 06:56 | HP ---
PRIMARY CARE PHYSICIAN: [facility]. REASON FOR ADMISSION: Chronic obstructive pulmonary disease exacerbation. HISTORY OF PRESENT ILLNESS: A 62-year-old female who has underlying history of stage IV lung cancer on chemotherapy as well as history of COPD, ongoing tobacco abuse disorder who came to the emergency room with complaint of 5-day history of increasing shortness of breath and wheezing. Patient reports that last week about a week ago on Thursday, she had chemotherapy. Subsequently, the patient experien lorena flu-like symptoms with upper respiratory symptoms and after that her condition gotten worse and s he was requiring 5-6 times to use her nebulizer machine for wheezing and shortness of breath. Every day, she was trying nebulizer machine and her home medication, but the patient was not feeling better and her condition was day by day getting worse. Yesterday, the patient was not able to breathe and she was not able to talk in full sentence and that is why she has to call paramedics and the patient was brought to ER. When she came to the ER at that time, patient was hypotensive, tachypneic, and af ebrile. She was hypoxic as well. The patient appeared in respiratory distress. The patient was giv en several rounds of DuoNeb therapy in the emergency room, routine blood tests showed elevated D-dime r and that is why CT angio was done, report is pending by the time of dictation. Patient reports cou gh with a scant amount of sputum associated with chest pain. The patient has a history of pulmonary embolism in the past and she is taking warfarin and she also has IVC filter. She denies any hemoptys is. She denies any lower extremity edema or calf tenderness. Patient continued to smoke about 6-7 c igarettes on a daily basis. The patient had diarrhea a few days ago, but it spontaneously stopped. The patient denies any UTI symptoms. She denies any abdominal pain. She denies any headache, focal motor or sensory symptoms. REVIEW OF SYSTEMS: The following complete review of systems was negative, unless otherwise mentioned in the HPI or below: Constitutional: Weight loss or gain, ability to conduct usual activities. Skin: Rash, itching. Eyes: Double vision, pain. ENT/Mouth: Nose bleeding, neck stiffness, pain, tenderness. Cardiovascular: Palpitations, dyspnea on exertion, orthopnea. Respiratory: Shortness of breath, wheezing, cough, hemoptysis, fever or night sweats. Gastrointestinal: Poor appetite, abdominal pain, heartburn, nausea, vomiting, constipation, or diarr hea. Genitourinary: Urgency, frequency, dysuria, nocturia. Musculoskeletal: Pain, swelling. Neurologic/Psychiatric: Anxiety, depression. Allergy/Immunologic: Skin rash, bleeding tendency. Please see my HPI for pertinent positive and negative. All other review of system reviewed and negat jyotsna except as mentioned in the HPI. PAST MEDICAL HISTORY: COPD, lung cancer on chemotherapy, history of pulmonary embolism on warfarin t herapy, she also has IVC filter, Crohn's disease with a history of colon cancer, diabetes type 2, hyp ertension, tobacco abuse disorder, anemia of chronic disease. PAST PSYCHIATRIC HISTORY: Anxiety and depression. PAST SURGICAL HISTORY: Colectomy, hysterectomy, cholecystectomy. ALLERGIES: IODINE and CLARITHROMYCIN. FAMILY HISTORY: No strong family history of premature coronary artery disease, stroke or cancer. SOCIAL HISTORY: Patient has continued to smoke about 6-7 cigarettes on a daily basis. She lives in [facility]. No history of alcohol or other illicit drug abuse. CURRENT HOME MEDICATIONS: Klonopin 1 mg p.o. daily, [place] 10 one tablet q.4 hourly p.r.n., trazodone 100 mg p.o. at bedtime, risperidone 0.25 mg p.o. twice daily, ProAir HFA 2 puffs q.6 hourly, Symbico rt 2 puff inhalation b.i.d., Celexa 20 mg p.o. daily, warfarin 5 mg p.o. daily, Anoro Ellipta one inh alation daily. EMERGENCY ROOM TREATMENT: The patient is given Rocephin 2 grams, Solu-Medrol 125 mg, Benadryl 50 mg, Pepcid 20 mg, Lovenox 1 mg per kg, IV fluid and DuoNeb therapy. PHYSICAL EXAMINATION: VITAL SIGNS: On arrival, blood pressure 78/58, pulse 102, respiratory rate 26, temperature 97.9, sat uration 88% on room air, weight 69.8 kilograms. GENERAL: Patient is currently alert, awake, mild respiratory distress, hypotensive, tachycardic. HEENT: Head: Normocephalic, atraumatic. Eyes: Pupils round, reactive to light. Extraocular muscl e intact. ENT: Oropharynx within normal limits. Moist mucous membranes, no oral lesion, no pharyng eal erythema, no exudate. NECK: Supple, no JVD, no thyromegaly, no carotid bruit, no jugular venous distention. LUNGS: Bilateral end expiratory wheezing and rhonchi heard, no rales, no accessory muscles of respir ation in use. CARDIAC: S1, S2 regular, tachycardia, no murmur, no gallop, no rub. ABDOMEN: Soft, bowel sounds present, nontender, nondistended. No organomegaly, no mass, no suprapub ic tenderness. BACK: Unremarkable, no CVA tenderness. EXTREMITIES: Upper extremity: Passive movement of all joints are normal. Lower extremity: No anju a. Good peripheral pulsation, no calf tenderness. SKIN: No skin rash. HEMATOLOGICAL: No lymphadenopathy. PSYCHIATRIC: Anxious affect. NEUROLOGIC: Nonfocal examination. The patient moves all 4 limbs. Plantar bilateral flexor. SIGNIFICANT LABORATORY DATA AND IMAGING: EKG showing normal sinus rhythm, nonspecific ST-T changes. Chest x-ray based on my review, perihilar prominence pulmonary vascular or perihilar mass. CT angio reviewed by me, no gross evidence of pulmonary embolism based on my assessment. CBC: WBC 5.9, hemo globin 11.4, platelet 223. INR of 1.1. D-dimer 2.49. BMP: Sodium 135, potassium 3.3, chloride 103 , carbon dioxide 20, anion gap 15, BUN 8, creatinine 0.64, glucose 118, calcium 9.1. Lactic acid 2.8 . LFT: AST 17, ALT 16, alkaline phosphatase 60, albumin 3.6. CK 52, CK-MB 3.3, troponin 0.052. BN P 47.6. Urinalysis normal. ASSESSMENT AND PLAN: 1. Acute hypoxic respiratory failure. This patient is hypoxic and saturation 88%. She does not use oxygen at home. She has ongoing tobacco abuse disorder as well as she has underlying chronic obstru ctive pulmonary disease and lung cancer. Currently, she is suffering from chronic obstructive pulmon juan disease exacerbation that contributed to her hypoxic respiratory failure. The patient will need oxygen to keep saturation above 92% and if her oxygen remains low, then she will need home oxygen arr angement as well before discharge and for that reason, we will daily assess her oxygen requirement wh ile in hospital. 2. Chronic obstructive pulmonary disease exacerbation, likely precipitated by recent viral infection as well as upper respiratory infection. Patient will be given Rocephin 2 gram IV daily, levofloxaci n 500 mg IV daily, Solu-Medrol 40 mg IV q.6 hourly, DuoNeb therapy every 4 hourly, Dulera 2 puffs inh alation b.i.d., Mucinex 600 mg twice daily and symptomatic treatment for cough. 3. Elevated D-dimer. The patient has history of pulmonary embolism. At this point, CT angio obtain ed. We are waiting for official report of CT angio. The patient's INR is also subtherapeutic. The patient seems like not taking warfarin therapy appropriately from her noncompliance of treatment. Billy henry is already given Lovenox 1 mg per kg in the emergency room. We will continue warfarin while in hospital and will continue to monitor INR while in hospital. 4. History of pulmonary embolism on chronic anticoagulation therapy. It seems like as mentioned abo ve, the patient is noncompliant with warfarin therapy as her INR is subtherapeutic. We will continue warfarin therapy while in hospital and we will monitor PT/INR on daily basis. 5. Anemia, normocytic, normochromic. We will continue multivitamin therapy while in hospital, allen us sulfate 325 mg p.o. daily. 6. Abnormal electrolytes. The patient has mild hyponatremia, hypokalemia and metabolic acidosis. T he patient will be given potassium supplementation. [facility] We will repeat labs tomorrow including magnesium and phosphorus. 7. Lactic acidosis likely related with hypoxia. The patient is already on broad spectrum antibiotic therapy for possible infection in her lungs. We will repeat lactic acid level tomorrow. 8. Elevated troponin, likely due to demand ischemia. We will monitor on telemetry floor and will do serial cardiac enzymes x3 and will also continue aspirin 325 mg p.o. daily. 9. Lung cancer. Patient is already getting chemotherapy on weekly basis with Dr. Carrasco. We will consult Oncology for evaluation while in hospital. 10. Anxiety and depression. We will continue patient's home medication for Klonopin, trazodone, and risperidone as per home dosage. 11. Hypertension. We will continue IV fluid while in hospital and we will check stool for guaiac as well. We are also trying to rule out pulmonary embolism with a CT angio. 12. Chronic low back pain. Patient's pain will be controlled with [place] on a p.r.n. basis. 13. Deep venous thrombosis prophylaxis. The patient is already on warfarin therapy. 14. Gastrointestinal prophylaxis. We will keep Protonix 40 mg p.o. daily. 15. Pulmonary embolism, bilateral. CT angiography report now available and reviewed again and it is consistent with bilateral pulmonary embolism, likely due to her noncompliance with her treatment wit h warfarin and that can explain her hypotension, hypoxia as well as respiratory distress and lactic a cidosis. We will continue to treat with Lovenox 1 mg/kg subcu twice daily along with warfarin and wi ll monitor PT/INR, H&H, creatinine and platelets daily basis. 16. Lactic acidosis, likely due to hypoxia and the patient is already on broad spectrum antibiotic t herapy. 17. Demand ischemia, myocardium. We will do echocardiography to assess ejection fraction and other structural abnormality. 18. Tobacco abuse disorder. Smoking cessation counseling given. Healthy lifestyle measures discuss ed with the patient. CODE STATUS: The patient is FULL CODE. Patient does not have any surrogate decision maker. Disposition plan based on clinical course. We are expecting patient's stay in hospital more than 2 m idnights. Plan of care discussed with the patient in detail.
[2018-01-31 07:10] LABS: Troponin I 0.027 ng/mL (< 0.028)
[2018-01-31] MEDS: Ferrous Sulfate 325 MG TAB PO SCH (08:47)
[2018-01-31] MEDS: guaiFENesin ER 600 MG TAB PO SCH ×2 (08:47→20:13)
[2018-01-31] MEDS ORDERED: Enoxaparin Sodium 40 MG/0.4 ML SYRINGE SC SCH (09:00)
[2018-01-31] MEDS ORDERED: methylPREDNISolone Sod Succ/PF 125 MG/2 ML VIAL IVP SCH (10:00)
[2018-01-31 12:55] LABS: Hemoglobin 10.8 g/dL (12.0-16.0); Platelet Count 215 thou/uL (130-400)
[2018-01-31] MEDS: Heparin 10,000 UNITS/ 10 ML VIAL SLOW IVP SCH (14:04)
[2018-01-31] MEDS: Heparin 25,000 units/D5W 500 ML IVPB SCH (14:05)
--- NOTE | 2018-01-31 15:21 | CT ---
PRELIMINARY REPORT/[facility]/EMERGENTY AFTER-HOURS PROCEDURE Addendum created by Sharon Miller MD on 01/31/2018 4:19 AM Central Time ([place] & [place]) THIS REPORT CONTAINS FINDINGS THAT MAY BE CRITICAL TO PATIENT CARE. The findingswere verbally communi cated via telephone conference with Dr. Guzman at 4:19 AM CDT on 01/31/2018. The findings were acknowl edged and understood. Initial Report created on 01/31/2018 4:16 AM Central Time ([place] & [place]) CT Angiography Chest With Intravenous Contrast EXAM DATE/TIME: 01/31/2018 3:07 AM CLINICAL HISTORY: 62 years old, female; Pain; Chest pain; On breathing; Patient HX: 62f presents to the ed for evaluati on of increased work of breathing and shortness of breath x2 days. Reports being diagnosed with stage 4 lung cancer and had her first chemo last week. Denies fever, chills. Reports smoking 7 cigarettes a day for years. Reports pain with inspiration which is not new. Pt. Premedicated TECHNIQUE: Axial computed tomographic angiography images of the chest with intravenous contrast using pulmonary embolism protocol. COMPARISON: No relevant prior studies available. FINDINGS: Pulmonary arteries: Adequate contrast enhancement of the pulmonary arteries. Abnormal filling defects -emboli within segmental branches to lingular and left lower lobe segmental pulmonary arterial vesse ls. Aorta: No evidence of aortic dissection. Chronic atherosclerotic calcification of the vasculature. 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 Lungs: Ovoid 4.5 x 5 x 5.3 cm soft tissue mass involving right pulmonary hilum extending into the rig ht lower lobe and encasing the right middle and lower lobe bronchiovascular structures. Ovoid 6 mm s oft tissue nodule periphery left upper lobe. Small 5 mm spiculated nodule right upper lobe. No evidence endobronchial lesion. Pleural space: No evidence of pleural effusion. No evidence of pneumothorax. Heart: Heart appears within normal limits, no pericardial effusion. No evidence of filling defects in the cardiac chambers. No evidence of RV dysfunction. Bones/joints: Multi-level degenerative changes involve the thoracic spine. No acute fracture. No disl ocation. Soft tissues: Unremarkable. Lymph nodes: Few up to 1 cm mediastinal lymph nodes. IMPRESSION: 1. Abnormal study-evidence of bilateral pulmonary emboli as described above. 2. Findings consistent with right pulmonary hilar mass - neoplasm, as described above. 3. Ovoid 6 mm soft tissue nodule periphery left upper lobe. Small 5 mm spiculated nodule right upper lobe. Possible secondary nodules vs. scarring. 4. 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 Thank you for allowing us to participate in the care of your patient. Dictated and Authenticated by: Sharon Miller MD 01/31/2018 4:16 AM Central Time ([place] & [place]) FINAL REPORT CONTRAST ENHANCED CTA CHEST: DATE: 01/31/18. COMPARISON: Comparison is made to a previous exam from 12/22/17. FINDINGS: Contrast-enhanced CTA of the chest was performed. Two-D and 3D reconstructed images performed on an independent 3D work station. Comparison is made to a recent exam. There is a large right hilar soft tissue mass is seen. There are filling defects seen in the pulmonary arteries of the lingula and some small segmental bran ches in the left lower lobe. These areas of filling defects are concerning for pulmonary emboli. No evidence of pericardial effusion seen. No evidence of pleural effusion seen. There appears to be an area of non-filling involving the origin of the left subclavian artery. IMPRESSION: 1. Right hilar mass. 2. Areas of non-filling in the lingular and left lower lobe pulmonary arteries. I concur with the dictation from [facility]. POS: QUIANA
[2018-01-31] MEDS ORDERED: Warfarin Sodium 5 MG TAB PO SCH (17:00)
[2018-01-31] MEDS: Zolpidem Tartrate 5 MG TAB PO PRN (20:42)
[2018-01-31] MEDS ORDERED: Enoxaparin Sodium 80 MG/0.8 ML SYRINGE SC SCH (21:00)
[2018-02-01] MEDS: NS 0.9% w/ 20 MEQ KCL 1,000 ML/1,000 ML BAG IV SCH ×4 (01:08→20:27)
[2018-02-01] MEDS: cefTRIAXone\\ROCEPHIN 1 GM in Syringe 10 ML IVPB SCH (02:06)
[2018-02-01] MEDS: HYDROcodone/Acetaminophen 5/325 mg Tablet PO PRN ×3 (02:09→14:50)
[2018-02-01 02:27] LABS: #Lymphocytes 0.5 thou/uL (1.20-3.40); #Monocytes 0.2 thou/uL (0.11-0.59); #Neutrophils 5.8 thou/uL (1.40-6.50); %Basophils 0.1 % (0.0-1.0); %Eosinophils 0.3 % (0.0-10.0); %Neutrophils 89.7 % (42.0-75.0); Hemoglobin 11.2 g/dL (12.0-16.0); Mean Platelet Volume 6.9 fL (7.4-10.4); Platelet Count 254 thou/uL (130-400); RBC Distribution Width 14.8 % (11.5-14.5); Red Blood Cell (RBC) Count 4.12 mill/uL (4.20-5.40); White Blood Cell (WBC) Count 6.5 thou/uL (4.8-10.8)
[2018-02-01 02:33] LABS: Prothrombin Time 13.4 SEC (12.0-14.7)
[2018-02-01 02:51] LABS: ALT (SGPT) 17 U/L (8-55); AST (SGOT) 17 U/L (5-34); Albumin 3.6 g/dL (3.4-4.8); Alkaline Phosphatase 58 U/L (40-150); Anion Gap 14 mmol/L (10-20); BUN (Urea Nitrogen) 12 mg/dL (9.8-20.1); Bilirubin, Total 0.2 mg/dL (0.2-1.2); Calc. Creatinine Clearance 104 mL/min (70-130); Calcium 9.2 mg/dL (7.8-10.44); Carbon Dioxide 20 mmol/L (23-31); Chloride 108 mmol/L (98-107); Estimated GFR-MDRD Greater than 90; Globulin 3.3 g/dL (2.4-3.5); Glucose 152 mg/dL (80-115); Potassium 4.3 mmol/L (3.5-5.1); Protein, Total 6.9 g/dL (6.0-8.3); Sodium 138 mmol/L (136-145)
[2018-02-01] MEDS: Diabetic Tussin 200 MG/10 ML UDCUP PO PRN ×2 (05:46→18:30)
[2018-02-01] MEDS: Mometasone/Formoterol 120 PUFF INHALER INH SCH ×2 (06:51→19:00)
[2018-02-01] MEDS: Ferrous Sulfate 325 MG TAB PO SCH (08:36)
[2018-02-01] MEDS: guaiFENesin ER 600 MG TAB PO SCH ×2 (08:36→20:23)
[2018-02-01] MEDS: Heparin 25,000 units/D5W 500 ML IVPB SCH (09:13)
--- NOTE | 2018-02-01 12:03 | PDOC.PN ---
- Subjective Encounter Start Date: 02/01/18 Encounter Start Time: 07:00 Pt seen for followup re: acute hypoxic respiratory failure. Feels better. - Objective Resuscitation Status: Resuscitation Status FULL:Full Resuscitation MAR Reviewed: Yes Vital Signs & Weight: Vital Signs (12 hours) Temp Pulse Resp BP BP Pulse Ox 02/01/18 11:30 90 16 97 02/01/18 11:27 98.1 F 86 16 120/71 97 02/01/18 08:31 98.3 F 87 20 118/71 96 02/01/18 06:51 82 16 94 L 02/01/18 06:48 82 16 94 L 02/01/18 04:00 98.5 F 89 16 118/75 02/01/18 00:33 83 16 90 L Weight Weight 157 lb 1 oz I&O: 01/31/18 02/01/18 02/02/18 06:59 06:59 06:59 Intake Total 3046 Output Total 1200 Balance 1846 Result Diagrams: 02/01/18 02:10 02/01/18 02:10 EKG Reviewed by me: Yes (Tele: NSR) Phys Exam - Physical Examination Constitutional: NAD HEENT: PERRLA, moist MMs, sclera anicteric, oral pharynx no lesions Neck: no nodes, no JVD, supple, full ROM Respiratory: no wheezing, no rales, no rhonchi, clear to auscultation bilateral Cardiovascular: RRR, no rub Gastrointestinal: soft, non-tender, no distention, positive bowel sounds Neurological: moves all 4 limbs Psychiatric: normal affect Skin: no rash Dx/Plan (1) Acute and chronic respiratory failure with hypoxia Code(s): J96.21 - ACUTE AND CHRONIC RESPIRATORY FAILURE WITH HYPOXIA Status: Acute Comment: Continue oxygen, steroids, antibiotics and bronchodilators. (2) Pulmonary embolism Code(s): I26.99 - OTHER PULMONARY EMBOLISM WITHOUT ACUTE COR PULMONALE Status : Acute Comment: On heparin drip, pt awaiting MediPort placement (3) Adenocarcinoma, lung Code(s): C34.90 - MALIGNANT NEOPLASM OF UNSP PART OF UNSP BRONCHUS OR LUNG Status: Chronic Comment: Oncology following (4) Anxiety and depression Code(s): F41.8 - OTHER SPECIFIED ANXIETY DISORDERS Status: Chronic Comment: Stable (5) Crohn disease Code(s): K50.90 - CROHN'S DISEASE, UNSPECIFIED, WITHOUT COMPLICATIONS Status: Chronic Comment: Stable (6) HTN (hypertension) Code(s): I10 - ESSENTIAL (PRIMARY) HYPERTENSION Status: Chronic Comment: Monitor vital signs, titrate antihypertensives as needed - Plan * . Review of Systems - Review of Systems Constitutional: weakness. negative: fever, chills, sweats, malaise Respiratory: Cough, Dry, SOB with Excertion. negative: Shortness of Breath, Hemoptysis, Pleuritic Pain, Sputum, Wheezing Cardiovascular: negative: chest pain, palpitations, orthopnea, paroxysmal nocturnal dyspnea, edema, light headedness Gastrointestinal: negative: Nausea, Vomiting, Abdominal Pain, Diarrhea, Constipation, Melena, Hematochezia Skin: negative: Rash, Lesions, Saud, Bruising - Medications/Allergies Allergies/Adverse Reactions: Allergies Allergy/AdvReac Type Severity Reaction Status Date / Time iodine Allergy Severe Anaphylaxis Verified 11/18/17 21:46 clarithromycin [From Biaxin] Allergy Rash Verified 11/18/17 21:46 Medications: Current Medications Acetaminophen (Tylenol) 650 mg PO Q4H PRN PRN Reason: Headache/Fever or Pain Hydrocodone Bitart/Acetaminophen ([place] 5/325) 1 tab PO Q4H PRN PRN Reason: Moderate Pain (4-6) Last Admin: 02/01/18 05:46 Dose: 1 tab Al Hydroxide/Mg Hydroxide (Maalox) 30 ml PO Q6H PRN PRN Reason: Heartburn or Indigestion Albuterol/Ipratropium (Duoneb) 3 ml NEB [id number] PRN PRN Reason: SOB &/or Wheezing Albuterol/Ipratropium (Duoneb) 3 ml NEB [id number] [facility] Last Admin: 02/01/18 11:30 Dose: 3 ml Artificial Tears (Tears Naturale) 0 drop EA EYE PRN PRN PRN Reason: Dry Eyes Aspirin (Aspirin Chewable) 81 mg PO DAILY [facility] Last Admin: 02/01/18 08:36 Dose: 81 mg Ferrous Sulfate (Feosol) 325 mg PO QA-[facility] Last Admin: 02/01/18 08:36 Dose: 325 mg Guaifenesin (Robitussin Sf) 200 mg PO Q4H PRN PRN Reason: Cough Last Admin: 02/01/18 05:46 Dose: 200 mg Guaifenesin (Mucinex) 600 mg PO Q12HR [facility] Last Admin: 02/01/18 08:36 Dose: 600 mg Heparin Sodium (Porcine) (Heparin 1,000 Units/Ml (10 Ml)) 0 units SLOW IVP ASDIR [facility] PRN Reason: Protocol Last Admin: 01/31/18 14:04 Dose: 5,699.2 unit Hydralazine HCl (Apresoline) 10 mg SLOW IVP Q4H PRN PRN Reason: Systolic BP > 180 Ceftriaxone Sodium 1 gm/ (Syringe) 10 mls @ 20 mls/hr IVPB Q24HR [facility] Last Admin: 02/01/18 02:06 Dose: 10 mls Levofloxacin 500 mg/ Device 100 mls @ 100 mls/hr IVPB Q24HR [facility] Last Admin: 02/01/18 05:37 Dose: 100 mls Potassium Chloride/Sodium Chloride (Ns 0.9% W/ 20 Meq Kcl) 1,000 ml in 1,000 mls @ 125 mls/hr IV .Q8H [facility] Last Admin: 02/01/18 11:32 Dose: 1,000 mls Heparin Sodium/Dextrose (Heparin 25,000 Units/D5w 500 Ml) 500 mls @ 0 mls/hr IVPB INF [facility]; Per Protocol PRN Reason: Protocol Last Admin: 02/01/18 09:13 Dose: 500 mls Loperamide HCl (Imodium) 2 mg PO PRN PRN PRN Reason: Diarrhea/Loose Stools Loratadine (Claritin) 10 mg PO DAILYPRN PRN PRN Reason: Sinus Symptoms Magnesium Hydroxide (Milk Of Magnesium) 30 ml PO DAILYPRN PRN PRN Reason: Constipation Methylprednisolone Sodium Succinate (Solu-Medrol) 40 mg IVP Q6HR [facility] Last Admin: 02/01/18 11:32 Dose: 40 mg Mineral Oil/White Petrolatum (Eucerin Cream) 0 gm TOP BIDPRN PRN PRN Reason: Dry Skin Mometasone Furoate/Formoterol Fumar (Dulera 200 Mcg/5 Mcg Inhaler) 2 puff INH BID-RT [facility] Last Admin: 02/01/18 06:51 Dose: 2 puff Ondansetron HCl (Zofran Odt) 4 mg PO Q6H PRN PRN Reason: Nausea/Vomiting Ondansetron HCl (Zofran) 4 mg IVP Q6H PRN PRN Reason: Nausea/Vomiting Pantoprazole Sodium (Protonix) 40 mg PO DAILY [facility] Last Admin: 02/01/18 08:36 Dose: 40 mg Phenol (Chloraseptic [place] 180 Ml Bot) 0 ml PO PRN PRN PRN Reason: Sore Throat Senna (Senokot) 2 tab PO HSPRN PRN PRN Reason: Constipation Sodium Chloride (Flush - Normal Saline) 10 ml IVF PRN PRN PRN Reason: Saline Flush Last Admin: 01/31/18 17:32 Dose: 10 ml Sodium Chloride ([place] Nasal [place] 0.65%) 0 ml EA NARE QIDPRN PRN PRN Reason: Nasal Congestion Zolpidem Tartrate (Ambien) 5 mg PO HSPRN PRN PRN Reason: Insomnia Last Admin: 01/31/18 20:42 Dose: 5 mg
[2018-02-01] MEDS: Zolpidem Tartrate 5 MG TAB PO PRN (20:25)
[2018-02-02] MEDS: HYDROcodone/Acetaminophen 5/325 mg Tablet PO PRN ×5 (00:09→21:41)
[2018-02-02] MEDS: cefTRIAXone\\ROCEPHIN 1 GM in Syringe 10 ML IVPB SCH (01:46)
[2018-02-02] MEDS: NS 0.9% w/ 20 MEQ KCL 1,000 ML/1,000 ML BAG IV SCH ×5 (04:46→22:10)
[2018-02-02 05:52] LABS: INR-International Normal Ratio 1.1; Prothrombin Time 13.9 SEC (12.0-14.7)
[2018-02-02] MEDS: Mometasone/Formoterol 120 PUFF INHALER INH SCH ×2 (06:24→19:20)
[2018-02-02] MEDS: Heparin 25,000 units/D5W 500 ML IVPB SCH (08:43)
[2018-02-02] MEDS: guaiFENesin ER 600 MG TAB PO SCH ×2 (08:46→20:15)
[2018-02-02] MEDS: Ferrous Sulfate 325 MG TAB PO SCH (08:47)
--- NOTE | 2018-02-02 10:09 | PDOC.GSPN ---
Surgery Progress Note: Subj - Subjective Narrative: Patient notes improvement in breathing. Not as short of breath Surgery Progress Note: Obj - Vital signs Vital signs: Vital Signs - Most Recent Temp Pulse Resp BP Pulse Ox 97.9 F 84 18 131/77 96 02/02/18 07:23 02/02/18 07:23 02/02/18 07:23 02/02/18 07:23 02/02/18 07:23 - Physical Exam General: no distress Cardiovascular: regular rate and rhythm Respiratory: coarse breath sounds Surgery Progress Note: Results - Labs Result Diagrams: 02/01/18 02:10 02/01/18 02:10 Lab results: Laboratory Results - last 24 hr 02/02/18 02/02/18 05:17 07:47 PT 13.9 INR 1.1 APTT 174.0 H* 64.0 H Surgery Progress Note: A/P - Problem (1) Acute and chronic respiratory failure with hypoxia Current Visit: Yes Code(s): J96.21 - ACUTE AND CHRONIC RESPIRATORY FAILURE WITH HYPOXIA Status: Acute (2) Adenocarcinoma, lung Current Visit: No Code(s): C34.90 - MALIGNANT NEOPLASM OF UNSP PART OF UNSP BRONCHUS OR LUNG Status: Chronic Assessment and Plan: Plan mediport tomorrow. Will hold heparin 6 hours prior to procedure.
[2018-02-02] MEDS: Loperamide HCl 2 MG CAP PO PRN ×2 (11:29→14:28)
[2018-02-02 12:52] LABS: Platelet Count 290 thou/uL (130-400)
--- NOTE | 2018-02-02 14:08 | PDOC.PN ---
- Subjective Encounter Start Date: 02/02/18 Encounter Start Time: 07:00 Pt seen for followup re: acute (on chronic) hypoxic resp failure. No fevers or chills. No cough. - Objective Resuscitation Status: Resuscitation Status FULL:Full Resuscitation MAR Reviewed: Yes Vital Signs & Weight: Vital Signs (12 hours) Temp Pulse Resp BP BP Pulse Ox 02/02/18 13:37 65 20 02/02/18 11:40 97.5 F L 62 18 138/78 96 02/02/18 08:00 97.5 F L 62 18 02/02/18 07:23 97.9 F 84 18 131/77 96 02/02/18 06:27 99 02/02/18 06:24 75 16 99 02/02/18 04:00 97.4 F L 71 16 126/62 96 Weight Weight 157 lb 1 oz I&O: 02/01/18 02/02/18 02/03/18 06:59 06:59 06:59 Intake Total 3046 2909.2 Output Total 1200 Balance 1846 2909.2 Result Diagrams: 02/02/18 12:30 02/01/18 02:10 Phys Exam - Physical Examination Constitutional: NAD HEENT: PERRLA, moist MMs, sclera anicteric, oral pharynx no lesions Neck: no nodes, no JVD, supple, full ROM Respiratory: no wheezing, no rales, no rhonchi, clear to auscultation bilateral Cardiovascular: RRR, no rub Gastrointestinal: soft Neurological: moves all 4 limbs Psychiatric: normal affect, A&O x 3 Dx/Plan (1) Acute and chronic respiratory failure with hypoxia Code(s): J96.21 - ACUTE AND CHRONIC RESPIRATORY FAILURE WITH HYPOXIA Status: Acute Comment: Improving, continue oxygen, steroids, antibiotics and bronchodilators. (2) Pulmonary embolism Code(s): I26.99 - OTHER PULMONARY EMBOLISM WITHOUT ACUTE COR PULMONALE Status : Acute Comment: On heparin drip, pt awaiting MediPort placement. Once mediPort in place, transition to warfarin with a heparin bridge. (3) Adenocarcinoma, lung Code(s): C34.90 - MALIGNANT NEOPLASM OF UNSP PART OF UNSP BRONCHUS OR LUNG Status: Chronic Comment: Pt to go for radiation therapy today. (4) Anxiety and depression Code(s): F41.8 - OTHER SPECIFIED ANXIETY DISORDERS Status: Chronic Comment: Stable (5) Crohn disease Code(s): K50.90 - CROHN'S DISEASE, UNSPECIFIED, WITHOUT COMPLICATIONS Status: Chronic Comment: Stable (6) HTN (hypertension) Code(s): I10 - ESSENTIAL (PRIMARY) HYPERTENSION Status: Chronic Comment: titrate antihypertensives as needed - Plan * . Review of Systems - Review of Systems Constitutional: negative: fever, chills, sweats, weakness, malaise Respiratory: SOB with Excertion. negative: Cough, Shortness of Breath, Pleuritic Pain, Wheezing Cardiovascular: negative: chest pain, palpitations, orthopnea, paroxysmal nocturnal dyspnea, edema, light headedness Genitourinary: negative: Dysuria, Frequency, Incontinence, Hematuria, Retention Skin: negative: Rash, Lesions, Saud, Bruising Neurological: negative: Weakness, Numbness, Incoordination, Change in Speech, Confusion, Seizures - Medications/Allergies Allergies/Adverse Reactions: Allergies Allergy/AdvReac Type Severity Reaction Status Date / Time iodine Allergy Severe Anaphylaxis Verified 11/18/17 21:46 clarithromycin [From Biaxin] Allergy Rash Verified 11/18/17 21:46 Medications: Current Medications Acetaminophen (Tylenol) 650 mg PO Q4H PRN PRN Reason: Headache/Fever or Pain Hydrocodone Bitart/Acetaminophen ([place] 5/325) 1 tab PO Q4H PRN PRN Reason: Moderate Pain (4-6) Last Admin: 02/02/18 11:29 Dose: 1 tab Al Hydroxide/Mg Hydroxide (Maalox) 30 ml PO Q6H PRN PRN Reason: Heartburn or Indigestion Albuterol/Ipratropium (Duoneb) 3 ml NEB [id number] PRN PRN Reason: SOB &/or Wheezing Albuterol/Ipratropium (Duoneb) 3 ml NEB [id number] [facility] Last Admin: 02/02/18 13:37 Dose: 3 ml Artificial Tears (Tears Naturale) 0 drop EA EYE PRN PRN PRN Reason: Dry Eyes Aspirin (Aspirin Chewable) 81 mg PO DAILY [facility] Last Admin: 02/02/18 08:47 Dose: 81 mg Ferrous Sulfate (Feosol) 325 mg PO QA-[facility] Last Admin: 02/02/18 08:47 Dose: 325 mg Guaifenesin (Robitussin Sf) 200 mg PO Q4H PRN PRN Reason: Cough Last Admin: 02/01/18 18:30 Dose: 200 mg Guaifenesin (Mucinex) 600 mg PO Q12HR [facility] Last Admin: 02/02/18 08:46 Dose: 600 mg Heparin Sodium (Porcine) (Heparin 1,000 Units/Ml (10 Ml)) 0 units SLOW IVP ASDIR [facility] PRN Reason: Protocol Last Admin: 01/31/18 14:04 Dose: 5,699.2 unit Hydralazine HCl (Apresoline) 10 mg SLOW IVP Q4H PRN PRN Reason: Systolic BP > 180 Ceftriaxone Sodium 1 gm/ (Syringe) 10 mls @ 20 mls/hr IVPB Q24HR [facility] Last Admin: 02/02/18 01:46 Dose: 10 mls Levofloxacin 500 mg/ Device 100 mls @ 100 mls/hr IVPB Q24HR [facility] Last Admin: 02/02/18 06:44 Dose: 100 mls Potassium Chloride/Sodium Chloride (Ns 0.9% W/ 20 Meq Kcl) 1,000 ml in 1,000 mls @ 125 mls/hr IV .Q8H [facility] Last Admin: 02/02/18 04:46 Dose: 1,000 mls Heparin Sodium/Dextrose (Heparin 25,000 Units/D5w 500 Ml) 500 mls @ 0 mls/hr IVPB INF [facility]; Per Protocol PRN Reason: Protocol Last Admin: 02/02/18 08:43 Dose: 500 mls Loperamide HCl (Imodium) 2 mg PO PRN PRN PRN Reason: Diarrhea/Loose Stools Last Admin: 02/02/18 11:29 Dose: 2 mg Loratadine (Claritin) 10 mg PO DAILYPRN PRN PRN Reason: Sinus Symptoms Magnesium Hydroxide (Milk Of Magnesium) 30 ml PO DAILYPRN PRN PRN Reason: Constipation Methylprednisolone Sodium Succinate (Solu-Medrol) 40 mg IVP Q6HR [facility] Last Admin: 02/02/18 12:30 Dose: 40 mg Mineral Oil/White Petrolatum (Eucerin Cream) 0 gm TOP BIDPRN PRN PRN Reason: Dry Skin Mometasone Furoate/Formoterol Fumar (Dulera 200 Mcg/5 Mcg Inhaler) 2 puff INH BID-RT [facility] Last Admin: 02/02/18 06:24 Dose: 2 puff Ondansetron HCl (Zofran Odt) 4 mg PO Q6H PRN PRN Reason: Nausea/Vomiting Ondansetron HCl (Zofran) 4 mg IVP Q6H PRN PRN Reason: Nausea/Vomiting Pantoprazole Sodium (Protonix) 40 mg PO DAILY [facility] Last Admin: 02/02/18 08:48 Dose: 40 mg Phenol (Chloraseptic [place] 180 Ml Bot) 0 ml PO PRN PRN PRN Reason: Sore Throat Senna (Senokot) 2 tab PO HSPRN PRN PRN Reason: Constipation Sodium Chloride (Flush - Normal Saline) 10 ml IVF PRN PRN PRN Reason: Saline Flush Last Admin: 02/02/18 01:46 Dose: 10 ml Sodium Chloride ([place] Nasal [place] 0.65%) 0 ml EA NARE QIDPRN PRN PRN Reason: Nasal Congestion Zolpidem Tartrate (Ambien) 5 mg PO HSPRN PRN PRN Reason: Insomnia Last Admin: 02/01/18 20:25 Dose: 5 mg
[2018-02-02] MEDS: Zolpidem Tartrate 5 MG TAB PO PRN (20:15)
[2018-02-02] MEDS: Heparin 10,000 UNITS/ 10 ML VIAL SLOW IVP SCH (21:43)
[2018-02-03] MEDS: HYDROcodone/Acetaminophen 5/325 mg Tablet PO PRN ×3 (02:05→14:16)
[2018-02-03] MEDS: cefTRIAXone\\ROCEPHIN 1 GM in Syringe 10 ML IVPB SCH (02:06)
[2018-02-03 02:35] LABS: PTT 170.8 SEC (22.9-36.1)
[2018-02-03 04:39] LABS: Hemoglobin 11.4 g/dL (12.0-16.0)
[2018-02-03 04:43] LABS: Platelet Count 294 thou/uL (130-400)
[2018-02-03 04:45] LABS: Prothrombin Time 13.5 SEC (12.0-14.7)
[2018-02-03 04:55] LABS: Calc. Creatinine Clearance 111 mL/min (70-130); Estimated GFR-MDRD Greater than 90
[2018-02-03] MEDS: Mometasone/Formoterol 120 PUFF INHALER INH SCH ×2 (07:17→19:11)
[2018-02-03] MEDS: NS 0.9% w/ 20 MEQ KCL 1,000 ML/1,000 ML BAG IV SCH ×3 (08:17→23:36)
[2018-02-03] MEDS: guaiFENesin ER 600 MG TAB PO SCH ×2 (10:00→20:00)
[2018-02-03] MEDS: Ferrous Sulfate 325 MG TAB PO SCH (10:00)
[2018-02-03] MEDS ORDERED: ePHEDrine/0.9% NaCl/PF SYRINGE 50 mg/10 ml ONE (11:06)
[2018-02-03] MEDS ORDERED: Lidocaine 1% PF 5 ML VIAL ONE (11:06)
[2018-02-03] MEDS ORDERED: PROPOFOL 200 MG/20 ML VIAL ONE (11:06)
[2018-02-03] MEDS ORDERED: PHENYLEPHRINE-NS 100 MCG/ML 10 ML SYRINGE ONE (11:06)
[2018-02-03] MEDS ORDERED: Fentanyl 100 MCG/2 ML VIAL ONE ×3 (11:20→13:00)
[2018-02-03] MEDS ORDERED: Midazolam HCl 2 mg/2 ml Vial ONE (11:20)
[2018-02-03] MEDS ORDERED: Bupivacaine/Epinephrine 0.25% 30 ML VIAL ONE (11:21)
[2018-02-03] MEDS ORDERED: Lidocaine 2% 10 ML INJ ONE (11:21)
[2018-02-03] MEDS ORDERED: CEFAZOLIN/Water 2 GM/20 ML SYRINGE ONE (11:29)
--- NOTE | 2018-02-03 11:54 | PDOC.PN ---
- Subjective Encounter Start Date: 02/03/18 Encounter Start Time: 07:00 Pt seen for followup re: acute on chronic hypoxic resp failure. Feels better. Cough better, occasional wheeze. - Objective Resuscitation Status: Resuscitation Status FULL:Full Resuscitation MAR Reviewed: Yes Vital Signs & Weight: Vital Signs (12 hours) Temp Pulse Resp BP BP Pulse Ox 02/03/18 08:00 97.6 F 91 20 121/64 97 02/03/18 07:21 100 18 98 02/03/18 07:17 100 18 98 02/03/18 04:00 97.8 F 72 18 133/74 96 02/03/18 00:00 97.7 F 76 16 120/68 97 Weight Weight 157 lb 1 oz I&O: 02/02/18 02/03/18 02/04/18 06:59 06:59 06:59 Intake Total 2909.2 2049 Balance 2909.2 2049 Result Diagrams: 02/03/18 04:22 02/03/18 04:22 Phys Exam - Physical Examination Constitutional: NAD HEENT: PERRLA, moist MMs, sclera anicteric, oral pharynx no lesions Respiratory: no rales, no rhonchi, wheezing present Cardiovascular: RRR, no rub Gastrointestinal: soft, non-tender, no distention, positive bowel sounds Neurological: moves all 4 limbs Psychiatric: normal affect, A&O x 3 Dx/Plan (1) Acute and chronic respiratory failure with hypoxia Code(s): J96.21 - ACUTE AND CHRONIC RESPIRATORY FAILURE WITH HYPOXIA Status: Acute Comment: Improving, try to wean off of oxygen, change steroids and antibiotics to oral. (2) Pulmonary embolism Code(s): I26.99 - OTHER PULMONARY EMBOLISM WITHOUT ACUTE COR PULMONALE Status : Acute Comment: On heparin drip. (3) Adenocarcinoma, lung Code(s): C34.90 - MALIGNANT NEOPLASM OF UNSP PART OF UNSP BRONCHUS OR LUNG Status: Chronic Comment: pt to go for mediport placement today (4) Anxiety and depression Code(s): F41.8 - OTHER SPECIFIED ANXIETY DISORDERS Status: Chronic Comment: Stable (5) Crohn disease Code(s): K50.90 - CROHN'S DISEASE, UNSPECIFIED, WITHOUT COMPLICATIONS Status: Chronic Comment: Stable (6) HTN (hypertension) Code(s): I10 - ESSENTIAL (PRIMARY) HYPERTENSION Status: Chronic Comment: titrate antihypertensives as needed - Plan * . Review of Systems - Review of Systems Constitutional: negative: fever, chills, sweats, weakness, malaise Respiratory: Cough, Wheezing. negative: Dry, Shortness of Breath, Hemoptysis, SOB with Excertion, Pleuritic Pain, Sputum Cardiovascular: negative: chest pain, palpitations, orthopnea, paroxysmal nocturnal dyspnea, edema, light headedness Gastrointestinal: negative: Nausea, Vomiting, Abdominal Pain, Diarrhea, Constipation, Melena, Hematochezia Genitourinary: negative: Dysuria, Frequency, Incontinence, Hematuria, Retention - Medications/Allergies Allergies/Adverse Reactions: Allergies Allergy/AdvReac Type Severity Reaction Status Date / Time iodine Allergy Severe Anaphylaxis Verified 11/18/17 21:46 clarithromycin [From Biaxin] Allergy Rash Verified 11/18/17 21:46 Medications: Current Medications Acetaminophen (Tylenol) 650 mg PO Q4H PRN PRN Reason: Headache/Fever or Pain Hydrocodone Bitart/Acetaminophen ([place] 5/325) 1 tab PO Q4H PRN PRN Reason: Moderate Pain (4-6) Last Admin: 02/03/18 06:10 Dose: 1 tab Al Hydroxide/Mg Hydroxide (Maalox) 30 ml PO Q6H PRN PRN Reason: Heartburn or Indigestion Albuterol/Ipratropium (Duoneb) 3 ml NEB [id number] PRN PRN Reason: SOB &/or Wheezing Albuterol/Ipratropium (Duoneb) 3 ml NEB [id number] [facility] Last Admin: 02/03/18 07:21 Dose: 3 ml Albuterol/Ipratropium (Duoneb) 3 ml NEB NOW [facility] Stop: 02/03/18 13:45 Artificial Tears (Tears Naturale) 0 drop EA EYE PRN PRN PRN Reason: Dry Eyes Aspirin (Aspirin Chewable) 81 mg PO DAILY [facility] Last Admin: 02/03/18 10:00 Dose: Not Given Ferrous Sulfate (Feosol) 325 mg PO QA-[facility] Last Admin: 02/03/18 10:00 Dose: 325 mg Guaifenesin (Robitussin Sf) 200 mg PO Q4H PRN PRN Reason: Cough Last Admin: 02/01/18 18:30 Dose: 200 mg Guaifenesin (Mucinex) 600 mg PO Q12HR [facility] Last Admin: 02/03/18 10:00 Dose: 600 mg Heparin Sodium (Porcine) (Heparin 1,000 Units/Ml (10 Ml)) 0 units SLOW IVP ASDIR [facility] PRN Reason: Protocol Last Admin: 02/02/18 21:43 Dose: 2,849.6 unit Hydralazine HCl (Apresoline) 10 mg SLOW IVP Q4H PRN PRN Reason: Systolic BP > 180 Ceftriaxone Sodium 1 gm/ (Syringe) 10 mls @ 20 mls/hr IVPB Q24HR [facility] Last Admin: 02/03/18 02:06 Dose: 10 mls Levofloxacin 500 mg/ Device 100 mls @ 100 mls/hr IVPB Q24HR [facility] Last Admin: 02/03/18 06:01 Dose: 100 mls Potassium Chloride/Sodium Chloride (Ns 0.9% W/ 20 Meq Kcl) 1,000 ml in 1,000 mls @ 125 mls/hr IV .Q8H [facility] Last Admin: 02/03/18 08:17 Dose: 1,000 mls Heparin Sodium/Dextrose (Heparin 25,000 Units/D5w 500 Ml) 500 mls @ 0 mls/hr IVPB INF [facility]; Per Protocol PRN Reason: Protocol Last Admin: 02/02/18 08:43 Dose: 500 mls Loperamide HCl (Imodium) 2 mg PO PRN PRN PRN Reason: Diarrhea/Loose Stools Last Admin: 02/02/18 14:28 Dose: 2 mg Loratadine (Claritin) 10 mg PO DAILYPRN PRN PRN Reason: Sinus Symptoms Magnesium Hydroxide (Milk Of Magnesium) 30 ml PO DAILYPRN PRN PRN Reason: Constipation Methylprednisolone Sodium Succinate (Solu-Medrol) 40 mg IVP Q6HR [facility] Last Admin: 02/03/18 06:01 Dose: 40 mg Mineral Oil/White Petrolatum (Eucerin Cream) 0 gm TOP BIDPRN PRN PRN Reason: Dry Skin Mometasone Furoate/Formoterol Fumar (Dulera 200 Mcg/5 Mcg Inhaler) 2 puff INH BID-RT [facility] Last Admin: 02/03/18 07:17 Dose: 2 puff Ondansetron HCl (Zofran Odt) 4 mg PO Q6H PRN PRN Reason: Nausea/Vomiting Ondansetron HCl (Zofran) 4 mg IVP Q6H PRN PRN Reason: Nausea/Vomiting Pantoprazole Sodium (Protonix) 40 mg PO DAILY [facility] Last Admin: 02/03/18 10:00 Dose: 40 mg Phenol (Chloraseptic [place] 180 Ml Bot) 0 ml PO PRN PRN PRN Reason: Sore Throat Senna (Senokot) 2 tab PO HSPRN PRN PRN Reason: Constipation Sodium Chloride (Flush - Normal Saline) 10 ml IVF PRN PRN PRN Reason: Saline Flush Last Admin: 02/03/18 06:01 Dose: 10 ml Sodium Chloride ([place] Nasal [place] 0.65%) 0 ml EA NARE QIDPRN PRN PRN Reason: Nasal Congestion Zolpidem Tartrate (Ambien) 5 mg PO HSPRN PRN PRN Reason: Insomnia Last Admin: 02/02/18 20:15 Dose: 5 mg
[2018-02-03] MEDS ORDERED: Ondansetron HCl/PF 4 MG/2 ML Vial IVP PRN (12:36)
[2018-02-03] MEDS ORDERED: Promethazine HCl 25 MG/ML VIAL IM PRN (12:36)
[2018-02-03] MEDS ORDERED: Promethazine HCl 25 MG/ML VIAL SLOW IVP PRN (12:36)
[2018-02-03] MEDS ORDERED: HYDROcodone/Acetaminophen 10/325 mg Tablet PO PRN (14:23)
--- NOTE | 2018-02-03 15:53 | RAD ---
UPRIGHT PORTABLE CHEST ONE VIEW: 02/03/18 HISTORY: 62-year-old female with history of Mediport placement position evaluation. COMPARISON: 01/30/18. Mediport has been placed with the tip in the upper superior vena cava. Stable right posterior hilar m ass. Heart size is normal. The left lung is clear. No evidence of right sided pneumothorax or pleural effusion. IMPRESSION: Jugular venous catheter on the right side with injection port with the tip at the level of the upper superior vena cava. Stable posterior right hilar mass. POS: [facility]
[2018-02-03] MEDS: HYDROcodone/Acetaminophen 10/325 mg Tablet PO PRN ×2 (17:48→22:18)
[2018-02-03] MEDS: Zolpidem Tartrate 5 MG TAB PO PRN (20:00)
[2018-02-03] MEDS: Cefdinir 300 MG CAP PO SCH (20:00)
[2018-02-03] MEDS: clonazePAM 1 MG TAB PO PRN (20:00)
[2018-02-03] MEDS: Loperamide HCl 2 MG CAP PO PRN (20:01)
[2018-02-03] MEDS: Heparin 25,000 units/D5W 500 ML IVPB SCH (23:04)
[2018-02-04] MEDS: HYDROcodone/Acetaminophen 10/325 mg Tablet PO PRN ×5 (02:50→21:47)
[2018-02-04] MEDS: Mometasone/Formoterol 120 PUFF INHALER INH SCH ×2 (05:49→18:44)
[2018-02-04 05:59] LABS: INR-International Normal Ratio 1.1; Prothrombin Time 14.4 SEC (12.0-14.7)
[2018-02-04] MEDS: predniSONE 50 MG TAB PO SCH (08:08)
[2018-02-04] MEDS: Cefdinir 300 MG CAP PO SCH ×2 (08:08→20:25)
[2018-02-04] MEDS: guaiFENesin ER 600 MG TAB PO SCH ×2 (08:10→20:25)
[2018-02-04] MEDS: Loperamide HCl 2 MG CAP PO PRN (08:10)
[2018-02-04] MEDS: Ferrous Sulfate 325 MG TAB PO SCH (08:10)
[2018-02-04 08:33] LABS: INR-International Normal Ratio 1.1; PTT 46.6 SEC (22.9-36.1); Prothrombin Time 14.2 SEC (12.0-14.7)
[2018-02-04 09:47] LABS: Unfractionated Heparin 0.18 IU/mL
[2018-02-04] MEDS: NS 0.9% w/ 20 MEQ KCL 1,000 ML/1,000 ML BAG IV SCH ×2 (10:57→20:25)
[2018-02-04] MEDS: clonazePAM 1 MG TAB PO PRN (10:58)
[2018-02-04] MEDS: Heparin 10,000 UNITS/ 10 ML VIAL SLOW IVP SCH (11:32)
--- NOTE | 2018-02-04 11:32 | PDOC.PN ---
- Subjective Encounter Start Date: 02/04/18 Encounter Start Time: 07:00 Pt seen for followup re: pulmonary embolism. Denies chest pain, shortness of breath, fevers or chills. No nausea or vomiting. - Objective Resuscitation Status: Resuscitation Status FULL:Full Resuscitation MAR Reviewed: Yes Vital Signs & Weight: Vital Signs (12 hours) Temp Pulse Resp BP Pulse Ox 02/04/18 07:23 98.7 F 72 18 129/64 93 L 02/04/18 05:50 72 20 92 L 02/04/18 05:49 72 20 92 L 02/04/18 04:58 91 L 02/04/18 04:00 98.4 F 74 16 125/59 L 92 L 02/04/18 02:00 85 16 91 L 02/03/18 23:39 98.3 F 73 16 115/56 L 92 L Weight Weight 157 lb 1 oz I&O: 02/03/18 02/04/18 02/05/18 06:59 06:59 06:59 Intake Total 2049 1954 Balance 2049 1954 Result Diagrams: 02/03/18 04:22 02/03/18 04:22 Phys Exam - Physical Examination Constitutional: NAD HEENT: moist MMs, sclera anicteric, oral pharynx no lesions, 2+ tonsils Neck: no nodes, no JVD, supple, full ROM Respiratory: no wheezing, no rales, no rhonchi, clear to auscultation bilateral Cardiovascular: RRR, no rub Gastrointestinal: soft Neurological: moves all 4 limbs Psychiatric: normal affect, A&O x 3 Dx/Plan (1) Pulmonary embolism Code(s): I26.99 - OTHER PULMONARY EMBOLISM WITHOUT ACUTE COR PULMONALE Status : Acute Comment: Start warfarin (per pharmacy dosing) with heparin bridge. Home when INR greater than 2.0 (2) Adenocarcinoma, lung Code(s): C34.90 - MALIGNANT NEOPLASM OF UNSP PART OF UNSP BRONCHUS OR LUNG Status: Chronic Comment: Mediport placed yesterday, pt has oncology appt next Thursday (3) Anxiety and depression Code(s): F41.8 - OTHER SPECIFIED ANXIETY DISORDERS Status: Chronic Comment: Stable (4) Crohn disease Code(s): K50.90 - CROHN'S DISEASE, UNSPECIFIED, WITHOUT COMPLICATIONS Status: Chronic Comment: Stable (5) HTN (hypertension) Code(s): I10 - ESSENTIAL (PRIMARY) HYPERTENSION Status: Chronic Comment: Controlled (6) Acute and chronic respiratory failure with hypoxia Code(s): J96.21 - ACUTE AND CHRONIC RESPIRATORY FAILURE WITH HYPOXIA Status: Resolved Comment: Pt is off of supplemental oxygen, is on bronchodilators, oral steroids and oral antibiotics - Plan * . Review of Systems - Review of Systems Constitutional: negative: fever, chills, sweats, weakness, malaise Respiratory: Cough, Dry, SOB with Excertion. negative: Shortness of Breath, Hemoptysis, Pleuritic Pain, Wheezing Cardiovascular: negative: chest pain, palpitations, orthopnea, paroxysmal nocturnal dyspnea, edema, light headedness Gastrointestinal: negative: Nausea, Vomiting, Abdominal Pain, Diarrhea, Constipation, Melena, Hematochezia Genitourinary: negative: Dysuria, Frequency, Incontinence, Hematuria, Retention - Medications/Allergies Allergies/Adverse Reactions: Allergies Allergy/AdvReac Type Severity Reaction Status Date / Time iodine Allergy Severe Anaphylaxis Verified 11/18/17 21:46 clarithromycin [From Biaxin] Allergy Rash Verified 11/18/17 21:46 Medications: Current Medications Acetaminophen (Tylenol) 650 mg PO Q4H PRN PRN Reason: Headache/Fever or Pain Hydrocodone Bitart/Acetaminophen ([place] 10/325) 1 tab PO Q4H PRN PRN Reason: Moderate Pain (4-6) Hydrocodone Bitart/Acetaminophen ([place] 10/325) 2 tab PO Q4H PRN PRN Reason: Severe Pain (7-10) Last Admin: 02/04/18 08:09 Dose: 2 tab Al Hydroxide/Mg Hydroxide (Maalox) 30 ml PO Q6H PRN PRN Reason: Heartburn or Indigestion Albuterol/Ipratropium (Duoneb) 3 ml NEB [id number] PRN PRN Reason: SOB &/or Wheezing Albuterol/Ipratropium (Duoneb) 3 ml NEB [id number] [facility] Last Admin: 02/04/18 05:50 Dose: 3 ml Artificial Tears (Tears Naturale) 0 drop EA EYE PRN PRN PRN Reason: Dry Eyes Aspirin (Aspirin Chewable) 81 mg PO DAILY [facility] Last Admin: 02/04/18 08:09 Dose: 81 mg Cefdinir (Omnicef) 300 mg PO BID [facility] Last Admin: 02/04/18 08:08 Dose: 300 mg Clonazepam (Klonopin) 1 mg PO BID PRN PRN Reason: Anxiety Last Admin: 02/04/18 10:58 Dose: 1 mg Ferrous Sulfate (Feosol) 325 mg PO QAM-WM [facility] Last Admin: 02/04/18 08:10 Dose: 325 mg Guaifenesin (Robitussin Sf) 200 mg PO Q4H PRN PRN Reason: Cough Last Admin: 02/01/18 18:30 Dose: 200 mg Guaifenesin (Mucinex) 600 mg PO Q12HR [facility] Last Admin: 02/04/18 08:10 Dose: 600 mg Heparin Sodium (Porcine) (Heparin 1,000 Units/Ml (10 Ml)) 0 units SLOW IVP ASDIR [facility] PRN Reason: Protocol Hydralazine HCl (Apresoline) 10 mg SLOW IVP Q4H PRN PRN Reason: Systolic BP > 180 Potassium Chloride/Sodium Chloride (Ns 0.9% W/ 20 Meq Kcl) 1,000 ml in 1,000 mls @ 125 mls/hr IV .Q8H [facility] Last Admin: 02/04/18 10:57 Dose: 1,000 mls Heparin Sodium/Dextrose (Heparin 25,000 Units/D5w 500 Ml) 500 mls @ 0 mls/hr IVPB INF [facility]; Per Protocol PRN Reason: Protocol Last Admin: 02/03/18 23:04 Dose: 500 mls Loperamide HCl (Imodium) 2 mg PO PRN PRN PRN Reason: Diarrhea/Loose Stools Last Admin: 02/04/18 08:10 Dose: 2 mg Loratadine (Claritin) 10 mg PO DAILYPRN PRN PRN Reason: Sinus Symptoms Magnesium Hydroxide (Milk Of Magnesium) 30 ml PO DAILYPRN PRN PRN Reason: Constipation Mineral Oil/White Petrolatum (Eucerin Cream) 0 gm TOP BIDPRN PRN PRN Reason: Dry Skin Miscellaneous Medication (Pharmacy To Dose) 0 each PO ASDIR PRN PRN Reason: Pharmacy to Dose WARFARIN Mometasone Furoate/Formoterol Fumar (Dulera 200 Mcg/5 Mcg Inhaler) 2 puff INH BID-RT [facility] Last Admin: 02/04/18 05:49 Dose: 2 puff Ondansetron HCl (Zofran Odt) 4 mg PO Q6H PRN PRN Reason: Nausea/Vomiting Ondansetron HCl (Zofran) 4 mg IVP Q6H PRN PRN Reason: Nausea/Vomiting Pantoprazole Sodium (Protonix) 40 mg PO DAILY [facility] Last Admin: 02/04/18 08:09 Dose: 40 mg Phenol (Chloraseptic [place] 180 Ml Bot) 0 ml PO PRN PRN PRN Reason: Sore Throat Prednisone (Prednisone) 50 mg PO QA-[facility] Last Admin: 02/04/18 08:08 Dose: 50 mg Senna (Senokot) 2 tab PO HSPRN PRN PRN Reason: Constipation Sodium Chloride (Flush - Normal Saline) 10 ml IVF PRN PRN PRN Reason: Saline Flush Last Admin: 02/04/18 08:08 Dose: 10 ml Sodium Chloride ([place] Nasal [place] 0.65%) 0 ml EA NARE QIDPRN PRN PRN Reason: Nasal Congestion Zolpidem Tartrate (Ambien) 5 mg PO HSPRN PRN PRN Reason: Insomnia Last Admin: 02/03/18 20:00 Dose: 5 mg
[2018-02-04] MEDS: Heparin 25,000 units/D5W 500 ML IVPB SCH (11:34)
[2018-02-04 12:38] LABS: Hemoglobin 12.3 g/dL (12.0-16.0); Platelet Count 295 thou/uL (130-400)
[2018-02-04] MEDS: Warfarin Sodium 5 MG TAB PO SCH (17:19)
[2018-02-04 17:53] LABS: PTT 111.3 SEC (22.9-36.1)
[2018-02-04 18:02] LABS: Unfractionated Heparin 0.58 IU/mL
[2018-02-04] MEDS: Zolpidem Tartrate 5 MG TAB PO PRN (20:29)
[2018-02-04 23:23] LABS: Unfractionated Heparin 0.43 IU/mL
[2018-02-04 23:24] LABS: PTT 119.1 SEC (22.9-36.1)
[2018-02-05] MEDS: Heparin 25,000 units/D5W 500 ML IVPB SCH (00:32)
[2018-02-05] MEDS: NS 0.9% w/ 20 MEQ KCL 1,000 ML/1,000 ML BAG IV SCH ×4 (04:37→23:59)
[2018-02-05] MEDS: HYDROcodone/Acetaminophen 10/325 mg Tablet PO PRN ×3 (06:24→18:39)
[2018-02-05 06:27] LABS: Hemoglobin 10.8 g/dL (12.0-16.0); Platelet Count 287 thou/uL (130-400)
[2018-02-05] MEDS: Mometasone/Formoterol 120 PUFF INHALER INH SCH ×2 (06:31→19:06)
[2018-02-05 06:38] LABS: INR-International Normal Ratio 1.1; Prothrombin Time 14.3 SEC (12.0-14.7)
[2018-02-05 06:39] LABS: Calc. Creatinine Clearance 115 mL/min (70-130); Estimated GFR-MDRD Greater than 90
[2018-02-05 06:45] LABS: PTT 116.9 SEC (22.9-36.1)
[2018-02-05] MEDS: Cefdinir 300 MG CAP PO SCH ×2 (09:43→20:17)
[2018-02-05] MEDS: Loperamide HCl 2 MG CAP PO PRN ×2 (09:44→22:03)
[2018-02-05] MEDS: Ferrous Sulfate 325 MG TAB PO SCH (09:44)
[2018-02-05] MEDS: predniSONE 50 MG TAB PO SCH (09:44)
[2018-02-05] MEDS: clonazePAM 1 MG TAB PO PRN ×2 (09:44→22:03)
[2018-02-05] MEDS: guaiFENesin ER 600 MG TAB PO SCH ×2 (12:47→20:17)
--- NOTE | 2018-02-05 13:18 | PDOC.PN ---
- Subjective Encounter Start Date: 02/05/18 Encounter Start Time: 13:00 Subjective: no sob, is feeling better -: is amb in hallway per patient -: no bleeding per rectum or in urine - Objective Resuscitation Status: Resuscitation Status FULL:Full Resuscitation MAR Reviewed: Yes Vital Signs & Weight: Vital Signs (12 hours) Temp Pulse Resp BP BP Pulse Ox 02/05/18 12:00 97.9 F 83 20 125/65 94 L 02/05/18 08:00 98.2 F 78 18 92 L 02/05/18 07:46 98.2 F 78 18 120/65 92 L 02/05/18 06:29 78 16 92 L 02/05/18 04:00 97.9 F 70 16 132/66 96 02/05/18 01:58 93 L Weight Weight 157 lb 1 oz I&O: 02/04/18 02/05/18 02/06/18 06:59 06:59 06:59 Intake Total 1954 2472 Balance 1954 2472 Result Diagrams: 02/05/18 06:20 02/05/18 06:20 Phys Exam - Physical Examination HEENT: PERRLA, moist MMs Neck: no JVD, supple Respiratory: no wheezing, no rales Cardiovascular: RRR, no significant murmur Gastrointestinal: soft, non-tender, positive bowel sounds Musculoskeletal: no edema, pulses present Neurological: non-focal, moves all 4 limbs Psychiatric: normal affect, A&O x 3 Dx/Plan (1) Pulmonary embolism Code(s): I26.99 - OTHER PULMONARY EMBOLISM WITHOUT ACUTE COR PULMONALE Status : Acute Comment: On warfarin (per pharmacy dosing) with heparin bridge. Home when INR greater than 2.0 (2) Acute and chronic respiratory failure with hypoxia Code(s): J96.21 - ACUTE AND CHRONIC RESPIRATORY FAILURE WITH HYPOXIA Status: Resolved Comment: Pt is off of supplemental oxygen, is on bronchodilators (3) Adenocarcinoma, lung Code(s): C34.90 - MALIGNANT NEOPLASM OF UNSP PART OF UNSP BRONCHUS OR LUNG Status: Chronic Comment: pt has oncology appt next Thursday (4) Crohn disease Code(s): K50.90 - CROHN'S DISEASE, UNSPECIFIED, WITHOUT COMPLICATIONS Status: Chronic Comment: Stable (5) DM2 (diabetes mellitus, type 2) Status: Chronic Qualifiers: Diabetes mellitus correction insulin use: without exterminator termite use Diabetes mellitus complication status: with unspecified complications Qualified Code(s) : E11.8 - Type 2 diabetes mellitus with unspecified complications (6) HTN (hypertension) Code(s): I10 - ESSENTIAL (PRIMARY) HYPERTENSION Status: Chronic Qualifiers: Hypertension type: essential hypertension Qualified Code(s): I10 - Essential (primary) hypertension Comment: Controlled (7) Hep C w/o coma, chronic Code(s): B18.2 - CHRONIC VIRAL HEPATITIS C Status: Chronic - Plan is on heparin drip, coumadin 5mg daily -: may dc omnicef prior to dc -: dc plan when inr is therapeutic -: watch for bleeding including recent mediport site -: is amb and eating better * . Review of Systems - Medications/Allergies Allergies/Adverse Reactions: Allergies Allergy/AdvReac Type Severity Reaction Status Date / Time iodine Allergy Severe Anaphylaxis Verified 11/18/17 21:46 clarithromycin [From Biaxin] Allergy Rash Verified 11/18/17 21:46 Medications: Current Medications Acetaminophen (Tylenol) 650 mg PO Q4H PRN PRN Reason: Headache/Fever or Pain Hydrocodone Bitart/Acetaminophen ([place] 10/325) 1 tab PO Q4H PRN PRN Reason: Moderate Pain (4-6) Last Admin: 02/05/18 09:43 Dose: 1 tab Hydrocodone Bitart/Acetaminophen ([place] 10/325) 2 tab PO Q4H PRN PRN Reason: Severe Pain (7-10) Last Admin: 02/05/18 12:43 Dose: 2 tab Al Hydroxide/Mg Hydroxide (Maalox) 30 ml PO Q6H PRN PRN Reason: Heartburn or Indigestion Albuterol/Ipratropium (Duoneb) 3 ml NEB [id number] PRN PRN Reason: SOB &/or Wheezing Albuterol/Ipratropium (Duoneb) 3 ml NEB [id number] [facility] Last Admin: 02/05/18 06:29 Dose: 3 ml Artificial Tears (Tears Naturale) 0 drop EA EYE PRN PRN PRN Reason: Dry Eyes Aspirin (Aspirin Chewable) 81 mg PO DAILY [facility] Last Admin: 02/05/18 09:44 Dose: 81 mg Cefdinir (Omnicef) 300 mg PO BID [facility] Last Admin: 02/05/18 09:43 Dose: 300 mg Clonazepam (Klonopin) 1 mg PO BID PRN PRN Reason: Anxiety Last Admin: 02/05/18 09:44 Dose: 1 mg Ferrous Sulfate (Feosol) 325 mg PO QAM-WM [facility] Last Admin: 02/05/18 09:44 Dose: 325 mg Guaifenesin (Robitussin Sf) 200 mg PO Q4H PRN PRN Reason: Cough Last Admin: 02/01/18 18:30 Dose: 200 mg Guaifenesin (Mucinex) 600 mg PO Q12HR [facility] Last Admin: 02/05/18 12:47 Dose: 600 mg Heparin Sodium (Porcine) (Heparin 1,000 Units/Ml (10 Ml)) 0 units SLOW IVP ASDIR [facility] PRN Reason: Protocol Last Admin: 02/04/18 11:32 Dose: 2,849 unit Hydralazine HCl (Apresoline) 10 mg SLOW IVP Q4H PRN PRN Reason: Systolic BP > 180 Potassium Chloride/Sodium Chloride (Ns 0.9% W/ 20 Meq Kcl) 1,000 ml in 1,000 mls @ 125 mls/hr IV .Q8H [facility] Last Admin: 02/05/18 04:37 Dose: 1,000 mls Heparin Sodium/Dextrose (Heparin 25,000 Units/D5w 500 Ml) 500 mls @ 0 mls/hr IVPB INF [facility]; Per Protocol PRN Reason: Protocol Last Admin: 02/05/18 00:32 Dose: 500 mls Loperamide HCl (Imodium) 2 mg PO PRN PRN PRN Reason: Diarrhea/Loose Stools Last Admin: 02/05/18 09:44 Dose: 2 mg Loratadine (Claritin) 10 mg PO DAILYPRN PRN PRN Reason: Sinus Symptoms Magnesium Hydroxide (Milk Of Magnesium) 30 ml PO DAILYPRN PRN PRN Reason: Constipation Mineral Oil/White Petrolatum (Eucerin Cream) 0 gm TOP BIDPRN PRN PRN Reason: Dry Skin Miscellaneous Medication (Pharmacy To Dose) 0 each PO ASDIR PRN PRN Reason: Pharmacy to Dose WARFARIN Mometasone Furoate/Formoterol Fumar (Dulera 200 Mcg/5 Mcg Inhaler) 2 puff INH BID-RT [facility] Last Admin: 02/05/18 06:31 Dose: 2 puff Ondansetron HCl (Zofran Odt) 4 mg PO Q6H PRN PRN Reason: Nausea/Vomiting Ondansetron HCl (Zofran) 4 mg IVP Q6H PRN PRN Reason: Nausea/Vomiting Pantoprazole Sodium (Protonix) 40 mg PO DAILY [facility] Last Admin: 02/05/18 09:44 Dose: 40 mg Phenol (Chloraseptic [place] 180 Ml Bot) 0 ml PO PRN PRN PRN Reason: Sore Throat Prednisone (Prednisone) 50 mg PO QAM-WM [facility] Last Admin: 02/05/18 09:44 Dose: 50 mg Senna (Senokot) 2 tab PO HSPRN PRN PRN Reason: Constipation Sodium Chloride (Flush - Normal Saline) 10 ml IVF PRN PRN PRN Reason: Saline Flush Last Admin: 02/04/18 08:08 Dose: 10 ml Sodium Chloride ([place] Nasal [place] 0.65%) 0 ml EA NARE QIDPRN PRN PRN Reason: Nasal Congestion Warfarin Sodium (Coumadin) 5 mg PO 1700 [facility] Last Admin: 02/04/18 17:19 Dose: 5 mg Zolpidem Tartrate (Ambien) 5 mg PO HSPRN PRN PRN Reason: Insomnia Last Admin: 02/04/18 20:29 Dose: 5 mg
[2018-02-05] MEDS: Heparin 10,000 UNITS/ 10 ML VIAL SLOW IVP SCH (14:49)
[2018-02-05] MEDS: Warfarin Sodium 5 MG TAB PO SCH (18:11)
[2018-02-05] MEDS: Zolpidem Tartrate 5 MG TAB PO PRN (20:18)
[2018-02-05 21:18] LABS: PTT 169.4 SEC (22.9-36.1)
[2018-02-06] MEDS: HYDROcodone/Acetaminophen 10/325 mg Tablet PO PRN ×5 (00:57→18:31)
[2018-02-06] MEDS: Heparin 25,000 units/D5W 500 ML IVPB SCH (03:58)
[2018-02-06 06:18] LABS: INR-International Normal Ratio 1.1; Prothrombin Time 14.8 SEC (12.0-14.7)
[2018-02-06] MEDS: Heparin 10,000 UNITS/ 10 ML VIAL SLOW IVP SCH (07:13)
[2018-02-06] MEDS ORDERED: Warfarin Sodium 5 MG TAB PO SCH (08:00)
[2018-02-06] MEDS: Loperamide HCl 2 MG CAP PO PRN (08:06)
[2018-02-06] MEDS: Ferrous Sulfate 325 MG TAB PO SCH (08:07)
[2018-02-06] MEDS: predniSONE 50 MG TAB PO SCH (08:07)
[2018-02-06] MEDS: Cefdinir 300 MG CAP PO SCH ×2 (08:08→20:15)
[2018-02-06] MEDS: guaiFENesin ER 600 MG TAB PO SCH ×2 (08:08→20:15)
[2018-02-06] MEDS: Mometasone/Formoterol 120 PUFF INHALER INH SCH ×2 (08:42→19:19)
[2018-02-06] MEDS: NS 0.9% w/ 20 MEQ KCL 1,000 ML/1,000 ML BAG IV SCH ×2 (09:06→18:57)
--- NOTE | 2018-02-06 09:58 | PDOC.PN ---
- Subjective Encounter Start Date: 02/06/18 Encounter Start Time: 10:03 Subjective: No new complaints. Feels much better -: No acute events overnight. INR still subtherapeutic. - Objective Resuscitation Status: Resuscitation Status FULL:Full Resuscitation MAR Reviewed: Yes Vital Signs & Weight: Vital Signs (12 hours) Temp Pulse Resp BP BP BP Pulse Ox 02/06/18 08:44 74 L 02/06/18 08:42 74 16 98 02/06/18 07:33 97.4 F L 65 18 176/73 H 95 02/06/18 03:56 69 190/78 H 02/06/18 03:35 97.9 F 69 16 190/78 H 93 L 02/06/18 00:00 97.7 F 66 12 125/65 95 02/05/18 23:24 69 16 96 Weight Weight 157 lb 1 oz I&O: 02/05/18 02/06/18 02/07/18 06:59 06:59 06:59 Intake Total 2473 3151 1500 Balance 2473 3151 1500 Result Diagrams: 02/05/18 06:20 02/05/18 06:20 Phys Exam - Physical Examination Constitutional: NAD HEENT: PERRLA, moist MMs, sclera anicteric, oral pharynx no lesions Neck: no JVD, supple, full ROM Respiratory: no wheezing, no rales, no rhonchi, clear to auscultation bilateral Cardiovascular: RRR, no significant murmur, no rub Gastrointestinal: soft, non-tender, no distention, positive bowel sounds Musculoskeletal: no edema, pulses present Neurological: non-focal, moves all 4 limbs Psychiatric: normal affect, A&O x 3 Skin: no rash, normal turgor Dx/Plan (1) Pulmonary embolism Code(s): I26.99 - OTHER PULMONARY EMBOLISM WITHOUT ACUTE COR PULMONALE Status : Acute Comment: On warfarin (per pharmacy dosing) with heparin bridge. Home when INR greater than 2.0 (2) Adenocarcinoma, lung Code(s): C34.90 - MALIGNANT NEOPLASM OF UNSP PART OF UNSP BRONCHUS OR LUNG Status: Chronic Comment: pt has oncology appt next Thursday (3) Crohn disease Code(s): K50.90 - CROHN'S DISEASE, UNSPECIFIED, WITHOUT COMPLICATIONS Status: Chronic Comment: Stable (4) DM2 (diabetes mellitus, type 2) Status: Chronic Qualifiers: Diabetes mellitus chcf insulin use: without computer engineering technician use Diabetes mellitus complication status: with unspecified complications Qualified Code(s) : E11.8 - Type 2 diabetes mellitus with unspecified complications Comment: At goal. Will obtain A1c. (5) HTN (hypertension) Code(s): I10 - ESSENTIAL (PRIMARY) HYPERTENSION Status: Chronic Qualifiers: Hypertension type: essential hypertension Qualified Code(s): I10 - Essential (primary) hypertension Comment: BP trending up. Amlodipine discontinued on last admission. Will monitor Bp and restart amlodipine if remains uncontrolled. (6) Hep C w/o coma, chronic Code(s): B18.2 - CHRONIC VIRAL HEPATITIS C Status: Chronic (7) Acute and chronic respiratory failure with hypoxia Code(s): J96.21 - ACUTE AND CHRONIC RESPIRATORY FAILURE WITH HYPOXIA Status: Resolved - Plan cont current plan of care, continue antibiotics, out of bed/ambulate, DVT proph w/heparin Continue Coumadin, IV heparin until therapeutic -: Daily INR -: Discontinue abx on discharge. * . Review of Systems - Medications/Allergies Allergies/Adverse Reactions: Allergies Allergy/AdvReac Type Severity Reaction Status Date / Time iodine Allergy Severe Anaphylaxis Verified 11/18/17 21:46 clarithromycin [From Biaxin] Allergy Rash Verified 11/18/17 21:46 Medications: Current Medications Acetaminophen (Tylenol) 650 mg PO Q4H PRN PRN Reason: Headache/Fever or Pain Hydrocodone Bitart/Acetaminophen ([place] 10/325) 1 tab PO Q4H PRN PRN Reason: Moderate Pain (4-6) Last Admin: 02/05/18 09:43 Dose: 1 tab Hydrocodone Bitart/Acetaminophen ([place] 10/325) 2 tab PO Q4H PRN PRN Reason: Severe Pain (7-10) Last Admin: 02/06/18 05:52 Dose: 2 tab Al Hydroxide/Mg Hydroxide (Maalox) 30 ml PO Q6H PRN PRN Reason: Heartburn or Indigestion Albuterol/Ipratropium (Duoneb) 3 ml NEB [id number] PRN PRN Reason: SOB &/or Wheezing Albuterol/Ipratropium (Duoneb) 3 ml NEB [id number] [facility] Last Admin: 02/06/18 08:42 Dose: 3 ml Artificial Tears (Tears Naturale) 0 drop EA EYE PRN PRN PRN Reason: Dry Eyes Aspirin (Aspirin Chewable) 81 mg PO DAILY [facility] Last Admin: 02/06/18 08:05 Dose: 81 mg Cefdinir (Omnicef) 300 mg PO BID [facility] Last Admin: 02/06/18 08:08 Dose: 300 mg Clonazepam (Klonopin) 1 mg PO BID PRN PRN Reason: Anxiety Last Admin: 02/05/18 22:03 Dose: 1 mg Ferrous Sulfate (Feosol) 325 mg PO QAM-[facility] Last Admin: 02/06/18 08:07 Dose: 325 mg Guaifenesin (Robitussin Sf) 200 mg PO Q4H PRN PRN Reason: Cough Last Admin: 02/01/18 18:30 Dose: 200 mg Guaifenesin (Mucinex) 600 mg PO Q12HR [facility] Last Admin: 02/06/18 08:08 Dose: 600 mg Heparin Sodium (Porcine) (Heparin 1,000 Units/Ml (10 Ml)) 0 units SLOW IVP ASDIR [facility] PRN Reason: Protocol Last Admin: 02/06/18 07:13 Dose: 5,696 unit Hydralazine HCl (Apresoline) 10 mg SLOW IVP Q4H PRN PRN Reason: Systolic BP > 180 Last Admin: 02/06/18 03:56 Dose: 10 mg Potassium Chloride/Sodium Chloride (Ns 0.9% W/ 20 Meq Kcl) 1,000 ml in 1,000 mls @ 125 mls/hr IV .Q8H [facility] Last Admin: 02/06/18 09:06 Dose: 1,000 mls Heparin Sodium/Dextrose (Heparin 25,000 Units/D5w 500 Ml) 500 mls @ 0 mls/hr IVPB INF [facility]; Per Protocol PRN Reason: Protocol Last Admin: 02/06/18 03:58 Dose: 500 mls Loperamide HCl (Imodium) 2 mg PO PRN PRN PRN Reason: Diarrhea/Loose Stools Last Admin: 02/06/18 08:06 Dose: 2 mg Loratadine (Claritin) 10 mg PO DAILYPRN PRN PRN Reason: Sinus Symptoms Magnesium Hydroxide (Milk Of Magnesium) 30 ml PO DAILYPRN PRN PRN Reason: Constipation Mineral Oil/White Petrolatum (Eucerin Cream) 0 gm TOP BIDPRN PRN PRN Reason: Dry Skin Miscellaneous Medication (Pharmacy To Dose) 0 each PO ASDIR PRN PRN Reason: Pharmacy to Dose WARFARIN Mometasone Furoate/Formoterol Fumar (Dulera 200 Mcg/5 Mcg Inhaler) 2 puff INH BID-RT [facility] Last Admin: 02/06/18 08:42 Dose: 2 puff Ondansetron HCl (Zofran Odt) 4 mg PO Q6H PRN PRN Reason: Nausea/Vomiting Ondansetron HCl (Zofran) 4 mg IVP Q6H PRN PRN Reason: Nausea/Vomiting Pantoprazole Sodium (Protonix) 40 mg PO DAILY [facility] Last Admin: 02/06/18 08:06 Dose: 40 mg Phenol (Chloraseptic [place] 180 Ml Bot) 0 ml PO PRN PRN PRN Reason: Sore Throat Prednisone (Prednisone) 50 mg PO QAM-[facility] Last Admin: 02/06/18 08:07 Dose: 50 mg Senna (Senokot) 2 tab PO HSPRN PRN PRN Reason: Constipation Sodium Chloride (Flush - Normal Saline) 10 ml IVF PRN PRN PRN Reason: Saline Flush Last Admin: 02/04/18 08:08 Dose: 10 ml Sodium Chloride ([place] Nasal [place] 0.65%) 0 ml EA NARE QIDPRN PRN PRN Reason: Nasal Congestion Warfarin Sodium (Coumadin) 5 mg PO 1700 [facility] Last Admin: 02/05/18 18:11 Dose: 5 mg Warfarin Sodium (Coumadin) 5 mg PO 0800 [facility] Stop: 02/06/18 10:00 Last Admin: 02/06/18 08:09 Dose: 5 mg Zolpidem Tartrate (Ambien) 5 mg PO HSPRN PRN PRN Reason: Insomnia Last Admin: 02/05/18 20:18 Dose: 5 mg
[2018-02-06] MEDS ORDERED: Dextrose 50% Abboject 50 ML SYRINGE SLOW IVP PRN (10:02)
[2018-02-06] MEDS ORDERED: Dextrose 5% in Water 1,000 ML IV PRN (10:02)
[2018-02-06] MEDS: clonazePAM 1 MG TAB PO PRN (10:24)
[2018-02-06 13:26] LABS: Hemoglobin 11.5 g/dL (12.0-16.0); Platelet Count 282 thou/uL (130-400)
[2018-02-06] MEDS ORDERED: Warfarin Sodium 7.5 MG TAB PO SCH (17:00)
[2018-02-06 19:34] LABS: PTT 178.9 SEC (22.9-36.1)
[2018-02-06] MEDS: Zolpidem Tartrate 5 MG TAB PO PRN (20:15)
[2018-02-07 01:36] LABS: PTT 130.5 SEC (22.9-36.1)
[2018-02-07] MEDS: HYDROcodone/Acetaminophen 10/325 mg Tablet PO PRN ×5 (02:11→20:15)
[2018-02-07 04:32] LABS: Platelet Count 286 thou/uL (130-400)
[2018-02-07 04:33] LABS: Hemoglobin 10.6 g/dL (12.0-16.0); Mean Corpuscular HGB CONC 32.1 g/dL (32.0-36.0); Mean Corpuscular Hemoglobin 26.5 pg (27.0-31.0); Mean Corpuscular Volume 82.6 fl (81.0-99.0); Mean Platelet Volume 6.4 fL (7.4-10.4); Platelet Count 288 thou/uL (130-400); RBC Distribution Width 15.8 % (11.5-14.5); Red Blood Cell (RBC) Count 3.98 mill/uL (4.20-5.40); White Blood Cell (WBC) Count 5.8 thou/uL (4.8-10.8)
[2018-02-07 04:34] LABS: INR-International Normal Ratio 1.8; Prothrombin Time 21.2 SEC (12.0-14.7)
[2018-02-07 04:41] LABS: Hemoglobin A1c 5.4 % (4.0-6.0)
[2018-02-07 04:44] LABS: Anion Gap 13 mmol/L (10-20); BUN (Urea Nitrogen) 10 mg/dL (9.8-20.1); Calc. Creatinine Clearance 109 mL/min (70-130); Carbon Dioxide 25 mmol/L (23-31); Chloride 107 mmol/L (98-107); Estimated GFR-MDRD Greater than 90; Glucose 100 mg/dL (80-115); Potassium 3.5 mmol/L (3.5-5.1); Sodium 141 mmol/L (136-145)
[2018-02-07] MEDS: NS 0.9% w/ 20 MEQ KCL 1,000 ML/1,000 ML BAG IV SCH ×3 (04:53→22:36)
[2018-02-07] MEDS: predniSONE 50 MG TAB PO SCH (07:46)
[2018-02-07] MEDS: Cefdinir 300 MG CAP PO SCH (07:47)
[2018-02-07] MEDS: Ferrous Sulfate 325 MG TAB PO SCH (07:48)
[2018-02-07] MEDS: guaiFENesin ER 600 MG TAB PO SCH ×2 (07:48→20:15)
[2018-02-07] MEDS: Mometasone/Formoterol 120 PUFF INHALER INH SCH ×2 (10:34→19:40)
--- NOTE | 2018-02-07 12:38 | PDOC.PN ---
- Subjective Encounter Start Date: 02/07/18 Encounter Start Time: 12:42 Subjective: No complaints. States she feels fine. -: No acute events overnight. - Objective Resuscitation Status: Resuscitation Status FULL:Full Resuscitation MAR Reviewed: Yes Vital Signs & Weight: Vital Signs (12 hours) Temp Pulse Resp BP Pulse Ox 02/07/18 10:34 71 95 02/07/18 08:00 98.7 F 71 16 97 02/07/18 07:27 98.7 F 70 16 114/78 97 02/07/18 06:30 68 16 94 L 02/07/18 03:53 98.0 F 68 16 143/65 H 93 L Weight Weight 157 lb 1 oz I&O: 02/06/18 02/07/18 02/08/18 06:59 06:59 06:59 Intake Total 3151 3700 360 Balance 3151 3700 360 Result Diagrams: 02/07/18 04:00 02/07/18 04:00 Phys Exam - Physical Examination Constitutional: NAD HEENT: PERRLA, moist MMs, sclera anicteric, oral pharynx no lesions Neck: supple, full ROM Respiratory: no wheezing, no rales, no rhonchi, clear to auscultation bilateral Cardiovascular: RRR, no significant murmur, no rub Gastrointestinal: soft, non-tender, no distention, positive bowel sounds Musculoskeletal: no edema, pulses present Neurological: non-focal, moves all 4 limbs Psychiatric: normal affect, A&O x 3 Skin: no rash, normal turgor Dx/Plan (1) Pulmonary embolism Code(s): I26.99 - OTHER PULMONARY EMBOLISM WITHOUT ACUTE COR PULMONALE Status : Acute Qualifiers: Pulmonary embolism type: other Chronicity: acute Acute cor pulmonale presence: without acute cor pulmonale Qualified Code(s): I26.99 - Other pulmonary embolism without acute cor pulmonale Comment: Stable, asymptomatic. On warfarin with heparin bridge. Home when INR > = 2.0 (2) Adenocarcinoma, lung Code(s): C34.90 - MALIGNANT NEOPLASM OF UNSP PART OF UNSP BRONCHUS OR LUNG Status: Chronic Comment: To f/u with oncology. (3) Crohn disease Code(s): K50.90 - CROHN'S DISEASE, UNSPECIFIED, WITHOUT COMPLICATIONS Status: Chronic Qualifiers: Gastrointestinal tract location: unspecified location Digestive disease complication type: without complication Qualified Code(s): K50.90 - Crohn's disease, unspecified, without complications Comment: Stable (4) DM2 (diabetes mellitus, type 2) Status: Chronic Qualifiers: Diabetes mellitus intermediate insulin use: without intermediate use Diabetes mellitus complication status: with unspecified complications Qualified Code(s) : E11.8 - Type 2 diabetes mellitus with unspecified complications Comment: At goal. A1c 5.4. (5) HTN (hypertension) Code(s): I10 - ESSENTIAL (PRIMARY) HYPERTENSION Status: Chronic Qualifiers: Hypertension type: essential hypertension Qualified Code(s): I10 - Essential (primary) hypertension Comment: Controlled and at goal. Amlodipine was discontinued during her last admission. (6) Hep C w/o coma, chronic Code(s): B18.2 - CHRONIC VIRAL HEPATITIS C Status: Chronic (7) Acute and chronic respiratory failure with hypoxia Code(s): J96.21 - ACUTE AND CHRONIC RESPIRATORY FAILURE WITH HYPOXIA Status: Resolved - Plan cont current plan of care, out of bed/ambulate, DVT proph w/heparin Home once INR therapeutic * . Review of Systems - Medications/Allergies Allergies/Adverse Reactions: Allergies Allergy/AdvReac Type Severity Reaction Status Date / Time iodine Allergy Severe Anaphylaxis Verified 11/18/17 21:46 clarithromycin [From Biaxin] Allergy Rash Verified 11/18/17 21:46 Medications: Current Medications Acetaminophen (Tylenol) 650 mg PO Q4H PRN PRN Reason: Headache/Fever or Pain Hydrocodone Bitart/Acetaminophen ([place] 10/325) 1 tab PO Q4H PRN PRN Reason: Moderate Pain (4-6) Last Admin: 02/05/18 09:43 Dose: 1 tab Hydrocodone Bitart/Acetaminophen ([place] 10/325) 2 tab PO Q4H PRN PRN Reason: Severe Pain (7-10) Last Admin: 02/07/18 12:04 Dose: 2 tab Al Hydroxide/Mg Hydroxide (Maalox) 30 ml PO Q6H PRN PRN Reason: Heartburn or Indigestion Albuterol/Ipratropium (Duoneb) 3 ml NEB [id number] PRN PRN Reason: SOB &/or Wheezing Albuterol/Ipratropium (Duoneb) 3 ml NEB [id number] [facility] Last Admin: 04/22/18 06:30 Dose: 3 ml Artificial Tears (Tears Naturale) 0 drop EA EYE PRN PRN PRN Reason: Dry Eyes Aspirin (Aspirin Chewable) 81 mg PO DAILY [facility] Last Admin: 02/07/18 07:48 Dose: 81 mg Cefdinir (Omnicef) 300 mg PO BID [facility] Last Admin: 02/07/18 07:47 Dose: 300 mg Clonazepam (Klonopin) 1 mg PO BID PRN PRN Reason: Anxiety Last Admin: 02/06/18 10:24 Dose: 1 mg Dextrose/Water (Dextrose 50%) 25 gm SLOW IVP PRN PRN PRN Reason: Hypoglycemia Ferrous Sulfate (Feosol) 325 mg PO QAM-WM [facility] Last Admin: 02/07/18 07:48 Dose: 325 mg Glucagon (Glucagon) 1 mg IM PRN PRN PRN Reason: Hypoglycemia Guaifenesin (Robitussin Sf) 200 mg PO Q4H PRN PRN Reason: Cough Last Admin: 02/01/18 18:30 Dose: 200 mg Guaifenesin (Mucinex) 600 mg PO Q12HR [facility] Last Admin: 02/07/18 07:48 Dose: 600 mg Heparin Sodium (Porcine) (Heparin 1,000 Units/Ml (10 Ml)) 0 units SLOW IVP ASDIR [facility] PRN Reason: Protocol Last Admin: 02/06/18 07:13 Dose: 5,696 unit Hydralazine HCl (Apresoline) 10 mg SLOW IVP Q4H PRN PRN Reason: Systolic BP > 180 Last Admin: 02/06/18 03:56 Dose: 10 mg Potassium Chloride/Sodium Chloride (Ns 0.9% W/ 20 Meq Kcl) 1,000 ml in 1,000 mls @ 125 mls/hr IV .Q8H [facility] Last Admin: 02/07/18 04:53 Dose: 1,000 mls Heparin Sodium/Dextrose (Heparin 25,000 Units/D5w 500 Ml) 500 mls @ 0 mls/hr IVPB INF [facility]; Per Protocol PRN Reason: Protocol Last Admin: 02/06/18 03:58 Dose: 500 mls Dextrose/Water (D5w) 1,000 mls @ 0 mls/hr IV .Q0M PRN; As Directed PRN Reason: Hypoglycemia Loperamide HCl (Imodium) 2 mg PO PRN PRN PRN Reason: Diarrhea/Loose Stools Last Admin: 02/06/18 08:06 Dose: 2 mg Loratadine (Claritin) 10 mg PO DAILYPRN PRN PRN Reason: Sinus Symptoms Magnesium Hydroxide (Milk Of Magnesium) 30 ml PO DAILYPRN PRN PRN Reason: Constipation Mineral Oil/White Petrolatum (Eucerin Cream) 0 gm TOP BIDPRN PRN PRN Reason: Dry Skin Miscellaneous Medication (Pharmacy To Dose) 0 each PO ASDIR PRN PRN Reason: Pharmacy to Dose WARFARIN Mometasone Furoate/Formoterol Fumar (Dulera 200 Mcg/5 Mcg Inhaler) 2 puff INH BID-RT [facility] Last Admin: 02/07/18 10:34 Dose: 2 puff Ondansetron HCl (Zofran Odt) 4 mg PO Q6H PRN PRN Reason: Nausea/Vomiting Ondansetron HCl (Zofran) 4 mg IVP Q6H PRN PRN Reason: Nausea/Vomiting Pantoprazole Sodium (Protonix) 40 mg PO DAILY [facility] Last Admin: 02/07/18 07:48 Dose: 40 mg Phenol (Chloraseptic [place] 180 Ml Bot) 0 ml PO PRN PRN PRN Reason: Sore Throat Prednisone (Prednisone) 50 mg PO QAM-[facility] Last Admin: 02/07/18 07:46 Dose: 50 mg Senna (Senokot) 2 tab PO HSPRN PRN PRN Reason: Constipation Sodium Chloride (Flush - Normal Saline) 10 ml IVF PRN PRN PRN Reason: Saline Flush Last Admin: 02/04/18 08:08 Dose: 10 ml Sodium Chloride ([place] Nasal [place] 0.65%) 0 ml EA NARE QIDPRN PRN PRN Reason: Nasal Congestion Warfarin Sodium (Coumadin) 2.5 mg PO 1700 [facility] Zolpidem Tartrate (Ambien) 5 mg PO HSPRN PRN PRN Reason: Insomnia Last Admin: 02/06/18 20:15 Dose: 5 mg
[2018-02-07 13:55] LABS: INR-International Normal Ratio 1.8; Prothrombin Time 21.8 SEC (12.0-14.7)
[2018-02-07] MEDS: Heparin 25,000 units/D5W 500 ML IVPB SCH (14:12)
[2018-02-07] MEDS ORDERED: Warfarin Sodium 2.5 MG TAB PO SCH (17:00)
[2018-02-07] MEDS: clonazePAM 1 MG TAB PO PRN (20:15)
[2018-02-07] MEDS: Loperamide HCl 2 MG CAP PO PRN (20:16)
[2018-02-07] MEDS: Zolpidem Tartrate 5 MG TAB PO PRN (20:16)
[2018-02-08] MEDS: HYDROcodone/Acetaminophen 10/325 mg Tablet PO PRN ×5 (01:38→21:03)
[2018-02-08] MEDS: NS 0.9% w/ 20 MEQ KCL 1,000 ML/1,000 ML BAG IV SCH ×2 (03:41→06:36)
[2018-02-08 05:33] LABS: INR-International Normal Ratio 1.8
[2018-02-08 05:34] LABS: PTT 75.4 SEC (22.9-36.1)
[2018-02-08] MEDS: Mometasone/Formoterol 120 PUFF INHALER INH SCH ×2 (06:30→19:17)
[2018-02-08] MEDS: guaiFENesin ER 600 MG TAB PO SCH ×2 (08:33→21:04)
[2018-02-08] MEDS: Ferrous Sulfate 325 MG TAB PO SCH (08:33)
[2018-02-08] MEDS: predniSONE 5 MG TAB PO SCH (08:36)
[2018-02-08] MEDS: Loperamide HCl 2 MG CAP PO PRN (08:36)
--- NOTE | 2018-02-08 10:37 | PDOC.PN ---
- Subjective Encounter Start Date: 02/08/18 Encounter Start Time: 10:00 Subjective: no sob, is eating breakfast -: no bleeding per rectum or in urine - Objective Resuscitation Status: Resuscitation Status FULL:Full Resuscitation MAR Reviewed: Yes Vital Signs & Weight: Vital Signs (12 hours) Temp Pulse Resp BP Pulse Ox 02/08/18 08:00 98.0 F 71 16 02/08/18 07:28 98.0 F 71 16 107/56 L 95 02/08/18 06:30 75 18 92 L 02/08/18 03:40 98.1 F 74 16 124/60 94 L 02/08/18 00:24 70 16 92 L 02/07/18 23:38 97.9 F 72 16 99/54 L 94 L Weight Weight 157 lb 1 oz I&O: 02/07/18 02/08/18 02/09/18 06:59 06:59 06:59 Intake Total 3700 4661 Balance 3700 4661 Result Diagrams: 02/07/18 04:00 02/07/18 04:00 Additional Labs: Accuchecks 02/07/18 12:54 POC Glucose 127 H Phys Exam - Physical Examination HEENT: PERRLA, moist MMs Neck: no JVD, supple Respiratory: no wheezing, no rales rhonchi+ Cardiovascular: RRR, no significant murmur Gastrointestinal: soft, non-tender, positive bowel sounds Musculoskeletal: no edema, pulses present Neurological: non-focal, moves all 4 limbs Psychiatric: A&O x 3 Dx/Plan (1) Pulmonary embolism Code(s): I26.99 - OTHER PULMONARY EMBOLISM WITHOUT ACUTE COR PULMONALE Status : Acute Qualifiers: Pulmonary embolism type: other Chronicity: acute Acute cor pulmonale presence: without acute cor pulmonale Qualified Code(s): I26.99 - Other pulmonary embolism without acute cor pulmonale Comment: Stable, asymptomatic. On warfarin with heparin bridge. Home when INR > = 2.0 (2) Acute and chronic respiratory failure with hypoxia Code(s): J96.21 - ACUTE AND CHRONIC RESPIRATORY FAILURE WITH HYPOXIA Status: Resolved (3) Adenocarcinoma, lung Code(s): C34.90 - MALIGNANT NEOPLASM OF UNSP PART OF UNSP BRONCHUS OR LUNG Status: Chronic (4) Crohn disease Code(s): K50.90 - CROHN'S DISEASE, UNSPECIFIED, WITHOUT COMPLICATIONS Status: Chronic Qualifiers: Gastrointestinal tract location: unspecified location Digestive disease complication type: without complication Qualified Code(s): K50.90 - Crohn's disease, unspecified, without complications Comment: Stable (5) DM2 (diabetes mellitus, type 2) Status: Chronic Qualifiers: Diabetes mellitus correction insulin use: without correction use Diabetes mellitus complication status: with unspecified complications Qualified Code(s) : E11.8 - Type 2 diabetes mellitus with unspecified complications Comment: At goal. A1c 5.4. (6) HTN (hypertension) Code(s): I10 - ESSENTIAL (PRIMARY) HYPERTENSION Status: Chronic Qualifiers: Hypertension type: essential hypertension Qualified Code(s): I10 - Essential (primary) hypertension Comment: Controlled and at goal. Amlodipine was discontinued during her last admission. (7) Hep C w/o coma, chronic Code(s): B18.2 - CHRONIC VIRAL HEPATITIS C Status: Chronic - Plan increase coumadin to 5mg daily -: is on heparin drip -: for radiation therapy this afternoon -: inr is 1.8, change prednisone to 5mg daily -: dc iv fluids, continue aspirin * . Review of Systems - Medications/Allergies Allergies/Adverse Reactions: Allergies Allergy/AdvReac Type Severity Reaction Status Date / Time iodine Allergy Severe Anaphylaxis Verified 11/18/17 21:46 clarithromycin [From Biaxin] Allergy Rash Verified 11/18/17 21:46 Medications: Current Medications Acetaminophen (Tylenol) 650 mg PO Q4H PRN PRN Reason: Headache/Fever or Pain Hydrocodone Bitart/Acetaminophen ([place] 10/325) 1 tab PO Q4H PRN PRN Reason: Moderate Pain (4-6) Last Admin: 02/05/18 09:43 Dose: 1 tab Hydrocodone Bitart/Acetaminophen ([place] 10/325) 2 tab PO Q4H PRN PRN Reason: Severe Pain (7-10) Last Admin: 02/08/18 06:34 Dose: 2 tab Al Hydroxide/Mg Hydroxide (Maalox) 30 ml PO Q6H PRN PRN Reason: Heartburn or Indigestion Albuterol/Ipratropium (Duoneb) 3 ml NEB [id number] PRN PRN Reason: SOB &/or Wheezing Albuterol/Ipratropium (Duoneb) 3 ml NEB [id number] [facility] Last Admin: 02/08/18 06:30 Dose: 3 ml Artificial Tears (Tears Naturale) 0 drop EA EYE PRN PRN PRN Reason: Dry Eyes Aspirin (Aspirin Chewable) 81 mg PO DAILY [facility] Last Admin: 02/08/18 08:33 Dose: 81 mg Clonazepam (Klonopin) 1 mg PO BID PRN PRN Reason: Anxiety Last Admin: 02/07/18 20:15 Dose: 1 mg Dextrose/Water (Dextrose 50%) 25 gm SLOW IVP PRN PRN PRN Reason: Hypoglycemia Ferrous Sulfate (Feosol) 325 mg PO QAM-WM [facility] Last Admin: 02/08/18 08:33 Dose: 325 mg Glucagon (Glucagon) 1 mg IM PRN PRN PRN Reason: Hypoglycemia Guaifenesin (Robitussin Sf) 200 mg PO Q4H PRN PRN Reason: Cough Last Admin: 02/01/18 18:30 Dose: 200 mg Guaifenesin (Mucinex) 600 mg PO Q12HR [facility] Last Admin: 02/08/18 08:33 Dose: 600 mg Heparin Sodium (Porcine) (Heparin 1,000 Units/Ml (10 Ml)) 0 units SLOW IVP ASDIR [facility] PRN Reason: Protocol Last Admin: 02/06/18 07:13 Dose: 5,696 unit Hydralazine HCl (Apresoline) 10 mg SLOW IVP Q4H PRN PRN Reason: Systolic BP > 180 Last Admin: 02/06/18 03:56 Dose: 10 mg Heparin Sodium/Dextrose (Heparin 25,000 Units/D5w 500 Ml) 500 mls @ 0 mls/hr IVPB INF [facility]; Per Protocol PRN Reason: Protocol Last Admin: 02/07/18 14:12 Dose: 500 mls Dextrose/Water (D5w) 1,000 mls @ 0 mls/hr IV .Q0M PRN; As Directed PRN Reason: Hypoglycemia Loperamide HCl (Imodium) 2 mg PO PRN PRN PRN Reason: Diarrhea/Loose Stools Last Admin: 02/08/18 08:36 Dose: 2 mg Loratadine (Claritin) 10 mg PO DAILYPRN PRN PRN Reason: Sinus Symptoms Magnesium Hydroxide (Milk Of Magnesium) 30 ml PO DAILYPRN PRN PRN Reason: Constipation Mineral Oil/White Petrolatum (Eucerin Cream) 0 gm TOP BIDPRN PRN PRN Reason: Dry Skin Miscellaneous Medication (Pharmacy To Dose) 0 each PO ASDIR PRN PRN Reason: Pharmacy to Dose WARFARIN Mometasone Furoate/Formoterol Fumar (Dulera 200 Mcg/5 Mcg Inhaler) 2 puff INH BID-RT [facility] Last Admin: 02/08/18 06:30 Dose: 2 puff Ondansetron HCl (Zofran Odt) 4 mg PO Q6H PRN PRN Reason: Nausea/Vomiting Ondansetron HCl (Zofran) 4 mg IVP Q6H PRN PRN Reason: Nausea/Vomiting Pantoprazole Sodium (Protonix) 40 mg PO DAILY [facility] Last Admin: 02/08/18 08:33 Dose: 40 mg Phenol (Chloraseptic [place] 180 Ml Bot) 0 ml PO PRN PRN PRN Reason: Sore Throat Prednisone (Prednisone) 5 mg PO QAM-WM [facility] Last Admin: 02/08/18 08:36 Dose: 5 mg Senna (Senokot) 2 tab PO HSPRN PRN PRN Reason: Constipation Sodium Chloride (Flush - Normal Saline) 10 ml IVF PRN PRN PRN Reason: Saline Flush Last Admin: 02/04/18 08:08 Dose: 10 ml Sodium Chloride ([place] Nasal [place] 0.65%) 0 ml EA NARE QIDPRN PRN PRN Reason: Nasal Congestion Warfarin Sodium (Coumadin) 5 mg PO 1700 [facility] Zolpidem Tartrate (Ambien) 5 mg PO HSPRN PRN PRN Reason: Insomnia Last Admin: 02/07/18 20:16 Dose: 5 mg
[2018-02-08 12:46] LABS: Hemoglobin 10.5 g/dL (12.0-16.0); Platelet Count 289 thou/uL (130-400)
[2018-02-08] MEDS ORDERED: [UNRECOGNIZED DRUG - REMARK] FS SCH (16:00)
[2018-02-08] MEDS ORDERED: Warfarin Sodium 5 MG TAB PO SCH (17:00)
[2018-02-08] MEDS: Heparin 25,000 units/D5W 500 ML IVPB SCH (17:05)
[2018-02-08] MEDS: clonazePAM 1 MG TAB PO PRN (21:04)
[2018-02-08] MEDS: Zolpidem Tartrate 5 MG TAB PO PRN (21:04)
[2018-02-09 04:42] LABS: Platelet Count 296 thou/uL (130-400)
[2018-02-09] MEDS: HYDROcodone/Acetaminophen 10/325 mg Tablet PO PRN ×4 (04:45→19:56)
[2018-02-09 04:46] LABS: INR-International Normal Ratio 1.7; Prothrombin Time 20.8 SEC (12.0-14.7)
[2018-02-09] MEDS: Mometasone/Formoterol 120 PUFF INHALER INH SCH ×2 (06:33→19:07)
[2018-02-09] MEDS ORDERED: CARBOPLATIN IVPB SCH (08:30)
[2018-02-09] MEDS ORDERED: SODIUM CHLORIDE 0.9% IVPB SCH ×3 (08:30→09:00)
[2018-02-09] MEDS ORDERED: Dexamethasone 10 MG/ML VIAL SLOW IVP SCH (09:00)
[2018-02-09] MEDS ORDERED: ONDANSETRON IVPB SCH (09:00)
[2018-02-09] MEDS ORDERED: PACLITAXEL IVPB SCH (09:00)
[2018-02-09] MEDS: guaiFENesin ER 600 MG TAB PO SCH ×2 (09:49→20:02)
[2018-02-09] MEDS: predniSONE 5 MG TAB PO SCH (09:49)
[2018-02-09] MEDS: Ferrous Sulfate 325 MG TAB PO SCH (09:49)
[2018-02-09] MEDS: Enoxaparin Sodium 80 MG/0.8 ML SYRINGE SC SCH ×2 (09:51→20:00)
--- NOTE | 2018-02-09 10:44 | PDOC.PN ---
- Subjective Encounter Start Date: 02/09/18 Encounter Start Time: 10:30 Subjective: no sob or pain - Objective Resuscitation Status: Resuscitation Status FULL:Full Resuscitation MAR Reviewed: Yes Vital Signs & Weight: Vital Signs (12 hours) Temp Pulse Resp BP BP Pulse Ox 02/09/18 08:00 98.1 F 66 16 100/55 L 95 02/09/18 06:33 64 18 96 02/09/18 06:30 64 18 96 02/09/18 04:00 97.9 F 80 16 81/55 L 92 L 02/09/18 00:08 78 18 88 L 02/08/18 23:38 98.0 F 72 16 93/55 L 93 L Weight Weight 157 lb I&O: 02/08/18 02/09/18 02/10/18 06:59 06:59 06:59 Intake Total 4661 1500 Balance 4661 1500 Result Diagrams: 02/09/18 04:00 02/09/18 04:00 Additional Labs: Accuchecks 02/08/18 11:56 POC Glucose 104 Phys Exam - Physical Examination HEENT: PERRLA, moist MMs Neck: no JVD, supple Respiratory: no wheezing, no rales rhonchi+ Cardiovascular: RRR, no significant murmur Gastrointestinal: soft, non-tender, positive bowel sounds Musculoskeletal: no edema, pulses present Neurological: non-focal, moves all 4 limbs Psychiatric: normal affect, A&O x 3 Dx/Plan (1) Pulmonary embolism Code(s): I26.99 - OTHER PULMONARY EMBOLISM WITHOUT ACUTE COR PULMONALE Status : Acute Qualifiers: Pulmonary embolism type: other Chronicity: acute Acute cor pulmonale presence: without acute cor pulmonale Qualified Code(s): I26.99 - Other pulmonary embolism without acute cor pulmonale Comment: Stable, asymptomatic. On warfarin with lovenox bridge. Home when INR > = 2.0 (2) Acute and chronic respiratory failure with hypoxia Code(s): J96.21 - ACUTE AND CHRONIC RESPIRATORY FAILURE WITH HYPOXIA Status: Resolved (3) Adenocarcinoma, lung Code(s): C34.90 - MALIGNANT NEOPLASM OF UNSP PART OF UNSP BRONCHUS OR LUNG Status: Chronic (4) Crohn disease Code(s): K50.90 - CROHN'S DISEASE, UNSPECIFIED, WITHOUT COMPLICATIONS Status: Chronic Qualifiers: Gastrointestinal tract location: unspecified location Digestive disease complication type: without complication Qualified Code(s): K50.90 - Crohn's disease, unspecified, without complications Comment: Stable (5) DM2 (diabetes mellitus, type 2) Status: Chronic Qualifiers: Diabetes mellitus 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 A1c 5.4. (6) HTN (hypertension) Code(s): I10 - ESSENTIAL (PRIMARY) HYPERTENSION Status: Chronic Qualifiers: Hypertension type: essential hypertension Qualified Code(s): I10 - Essential (primary) hypertension Comment: Controlled and at goal. Amlodipine was discontinued during her last admission. (7) Hep C w/o coma, chronic Code(s): B18.2 - CHRONIC VIRAL HEPATITIS C Status: Chronic - Plan change heparin to lovenox, increase coumadin to 10mg QPM -: inr went down to 1.7 this am, likely due to ?med interaction -: dc oxygen for spo2 of 90% -: may dc prednisone if onc doesn't require it -: is starting taxol from today along with radiation therapy * . Review of Systems - Medications/Allergies Allergies/Adverse Reactions: Allergies Allergy/AdvReac Type Severity Reaction Status Date / Time iodine Allergy Severe Anaphylaxis Verified 11/18/17 21:46 clarithromycin [From Biaxin] Allergy Rash Verified 11/18/17 21:46 Medications: Current Medications Acetaminophen (Tylenol) 650 mg PO Q4H PRN PRN Reason: Headache/Fever or Pain Hydrocodone Bitart/Acetaminophen ([place] 10/325) 1 tab PO Q4H PRN PRN Reason: Moderate Pain (4-6) Last Admin: 02/05/18 09:43 Dose: 1 tab Hydrocodone Bitart/Acetaminophen ([place] 10/325) 2 tab PO Q4H PRN PRN Reason: Severe Pain (7-10) Last Admin: 02/09/18 09:54 Dose: 2 tab Al Hydroxide/Mg Hydroxide (Maalox) 30 ml PO Q6H PRN PRN Reason: Heartburn or Indigestion Albuterol/Ipratropium (Duoneb) 3 ml NEB [id number] PRN PRN Reason: SOB &/or Wheezing Albuterol/Ipratropium (Duoneb) 3 ml NEB [id number] [facility] Last Admin: 02/09/18 06:30 Dose: 3 ml Artificial Tears (Tears Naturale) 0 drop EA EYE PRN PRN PRN Reason: Dry Eyes Aspirin (Aspirin Chewable) 81 mg PO DAILY [facility] Last Admin: 02/09/18 09:49 Dose: 81 mg Clonazepam (Klonopin) 1 mg PO BID PRN PRN Reason: Anxiety Last Admin: 02/08/18 21:04 Dose: 1 mg Dexamethasone (Decadron) 10 mg SLOW IVP [facility] Stop: 02/09/18 23:59 Dextrose/Water (Dextrose 50%) 25 gm SLOW IVP PRN PRN PRN Reason: Hypoglycemia Enoxaparin Sodium (Lovenox) 70 mg SC 0900,2100 [facility] Last Admin: 02/09/18 09:51 Dose: 70 mg Ferrous Sulfate (Feosol) 325 mg PO QAM-WM [facility] Last Admin: 02/09/18 09:49 Dose: 325 mg Glucagon (Glucagon) 1 mg IM PRN PRN PRN Reason: Hypoglycemia Guaifenesin (Robitussin Sf) 200 mg PO Q4H PRN PRN Reason: Cough Last Admin: 02/01/18 18:30 Dose: 200 mg Guaifenesin (Mucinex) 600 mg PO Q12HR [facility] Last Admin: 02/09/18 09:49 Dose: 600 mg Heparin Sodium (Porcine) (Heparin 1,000 Units/Ml (10 Ml)) 0 units SLOW IVP ASDIR [facility] PRN Reason: Protocol Last Admin: 02/06/18 07:13 Dose: 5,696 unit Hydralazine HCl (Apresoline) 10 mg SLOW IVP Q4H PRN PRN Reason: Systolic BP > 180 Last Admin: 02/06/18 03:56 Dose: 10 mg Dextrose/Water (D5w) 1,000 mls @ 0 mls/hr IV .Q0M PRN; As Directed PRN Reason: Hypoglycemia Paclitaxel 85 mg/ Sodium (Chloride) 264.17 mls @ 264.17 mls/hr IVPB [facility] Stop: 02/09/18 23:59 Ondansetron HCl 20 mg/ Sodium (Chloride) 60 mls @ 240 mls/hr IVPB [facility] Stop: 02/09/18 23:59 Carboplatin 235 mg/ Sodium (Chloride) 273.5 mls @ 364.667 mls/hr IVPB [facility] Stop: 02/09/18 23:59 Loperamide HCl (Imodium) 2 mg PO PRN PRN PRN Reason: Diarrhea/Loose Stools Last Admin: 02/08/18 08:36 Dose: 2 mg Loratadine (Claritin) 10 mg PO DAILYPRN PRN PRN Reason: Sinus Symptoms Magnesium Hydroxide (Milk Of Magnesium) 30 ml PO DAILYPRN PRN PRN Reason: Constipation Mineral Oil/White Petrolatum (Eucerin Cream) 0 gm TOP BIDPRN PRN PRN Reason: Dry Skin Miscellaneous Medication (Pharmacy To Dose) 0 each PO ASDIR PRN PRN Reason: Pharmacy to Dose WARFARIN Mometasone Furoate/Formoterol Fumar (Dulera 200 Mcg/5 Mcg Inhaler) 2 puff INH BID-RT [facility] Last Admin: 02/09/18 06:33 Dose: 2 puff Ondansetron HCl (Zofran Odt) 4 mg PO Q6H PRN PRN Reason: Nausea/Vomiting Ondansetron HCl (Zofran) 4 mg IVP Q6H PRN PRN Reason: Nausea/Vomiting Pantoprazole Sodium (Protonix) 40 mg PO DAILY [facility] Last Admin: 02/09/18 09:50 Dose: 40 mg Phenol (Chloraseptic [place] 180 Ml Bot) 0 ml PO PRN PRN PRN Reason: Sore Throat Prednisone (Prednisone) 5 mg PO QAM-[facility] Last Admin: 02/09/18 09:49 Dose: 5 mg Senna (Senokot) 2 tab PO HSPRN PRN PRN Reason: Constipation Sodium Chloride (Flush - Normal Saline) 10 ml IVF PRN PRN PRN Reason: Saline Flush Last Admin: 02/04/18 08:08 Dose: 10 ml Sodium Chloride ([place] Nasal [place] 0.65%) 0 ml EA NARE QIDPRN PRN PRN Reason: Nasal Congestion Warfarin Sodium (Coumadin) 10 mg PO 1700 [facility] Zolpidem Tartrate (Ambien) 5 mg PO HSPRN PRN PRN Reason: Insomnia Last Admin: 02/08/18 21:04 Dose: 5 mg
[2018-02-09] MEDS ORDERED: Warfarin Sodium 10 MG TAB PO SCH (17:00)
[2018-02-09] MEDS: clonazePAM 1 MG TAB PO PRN (20:00)
[2018-02-09] MEDS: Zolpidem Tartrate 5 MG TAB PO PRN (23:16)
[2018-02-10] MEDS: HYDROcodone/Acetaminophen 10/325 mg Tablet PO PRN ×4 (03:59→15:33)
[2018-02-10 07:17] LABS: Hemoglobin 10.8 g/dL (12.0-16.0); Mean Corpuscular HGB CONC 32.5 g/dL (32.0-36.0); Mean Corpuscular Hemoglobin 27.1 pg (27.0-31.0); Mean Corpuscular Volume 83.5 fl (81.0-99.0); Mean Platelet Volume 7.2 fL (7.4-10.4); Platelet Count 254 thou/uL (130-400); RBC Distribution Width 16.2 % (11.5-14.5); Red Blood Cell (RBC) Count 3.97 mill/uL (4.20-5.40); White Blood Cell (WBC) Count 5.3 thou/uL (4.8-10.8)
[2018-02-10 07:27] LABS: INR-International Normal Ratio 2.5; Prothrombin Time 27.8 SEC (12.0-14.7)
[2018-02-10 07:37] LABS: Anion Gap 11 mmol/L (10-20); BUN (Urea Nitrogen) 12 mg/dL (9.8-20.1); Calc. Creatinine Clearance 105 mL/min (70-130); Calcium 9.2 mg/dL (7.8-10.44); Carbon Dioxide 26 mmol/L (23-31); Chloride 103 mmol/L (98-107); Estimated GFR-MDRD Greater than 90; Glucose 151 mg/dL (80-115); Sodium 136 mmol/L (136-145)
[2018-02-10] MEDS: Ferrous Sulfate 325 MG TAB PO SCH (08:32)
[2018-02-10] MEDS: guaiFENesin ER 600 MG TAB PO SCH (08:32)
[2018-02-10] MEDS: Mometasone/Formoterol 120 PUFF INHALER INH SCH (08:45)
[2018-02-10] MEDS ORDERED: Enoxaparin Sodium 80 MG/0.8 ML SYRINGE SC SCH (09:00)
[2018-02-10] MEDS: predniSONE 5 MG TAB PO SCH (09:22)
[2018-02-10 12:20] VITALS: BP 101/62; TEMP 99.3
[2018-02-10 13:21] LABS: Hemoglobin 10.9 g/dL (12.0-16.0); Platelet Count 292 thou/uL (130-400)
--- NOTE | 2018-02-10 16:15 | PDOC.PN ---
- Subjective Encounter Start Date: 02/10/18 Encounter Start Time: 13:00 Subjective: feels good, no sob -: wants to go home today - Objective Resuscitation Status: Resuscitation Status FULL:Full Resuscitation MAR Reviewed: Yes Vital Signs & Weight: Vital Signs (12 hours) Temp Pulse Resp BP Pulse Ox 02/10/18 14:02 88 16 02/10/18 12:00 99.3 F 87 24 H 101/62 97 02/10/18 08:38 76 17 02/10/18 08:00 99.1 F 76 17 02/10/18 07:37 99.1 F 84 20 93/58 L 94 L Weight Weight 157 lb I&O: 02/09/18 02/10/18 02/11/18 06:59 06:59 06:59 Intake Total 1500 1500 720 Balance 1500 1500 720 Result Diagrams: 02/10/18 12:48 02/10/18 06:04 Phys Exam - Physical Examination HEENT: PERRLA, moist MMs Neck: no JVD, supple Respiratory: no wheezing, no rales Cardiovascular: RRR, no significant murmur Gastrointestinal: soft, non-tender, positive bowel sounds Musculoskeletal: no edema, pulses present Neurological: non-focal, moves all 4 limbs Psychiatric: normal affect, A&O x 3 Dx/Plan (1) Pulmonary embolism Code(s): I26.99 - OTHER PULMONARY EMBOLISM WITHOUT ACUTE COR PULMONALE Status : Acute Qualifiers: Pulmonary embolism type: other Chronicity: acute Acute cor pulmonale presence: without acute cor pulmonale Qualified Code(s): I26.99 - Other pulmonary embolism without acute cor pulmonale Comment: Stable, asymptomatic. On warfarin with lovenox bridge. Home when INR > = 2.0 (2) Acute and chronic respiratory failure with hypoxia Code(s): J96.21 - ACUTE AND CHRONIC RESPIRATORY FAILURE WITH HYPOXIA Status: Resolved (3) Adenocarcinoma, lung Code(s): C34.90 - MALIGNANT NEOPLASM OF UNSP PART OF UNSP BRONCHUS OR LUNG Status: Chronic (4) Crohn disease Code(s): K50.90 - CROHN'S DISEASE, UNSPECIFIED, WITHOUT COMPLICATIONS Status: Chronic Qualifiers: Gastrointestinal tract location: unspecified location Digestive disease complication type: without complication Qualified Code(s): K50.90 - Crohn's disease, unspecified, without complications Comment: Stable (5) DM2 (diabetes mellitus, type 2) Status: Chronic Qualifiers: 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 A1c 5.4. (6) HTN (hypertension) Code(s): I10 - ESSENTIAL (PRIMARY) HYPERTENSION Status: Chronic Qualifiers: Hypertension type: essential hypertension Qualified Code(s): I10 - Essential (primary) hypertension Comment: Controlled and at goal. Amlodipine was discontinued during her last admission. (7) Hep C w/o coma, chronic Code(s): B18.2 - CHRONIC VIRAL HEPATITIS C Status: Chronic - Plan coumadin reduced to 7.5mg daily -: inr is therapeutic today, to f/u in coumadin clinic on thursday -: hemostable -: dc pt home * .
[2018-02-10] MEDS ORDERED: Warfarin Sodium 7.5 MG TAB PO SCH (17:00)
--- NOTE | 2018-02-10 22:54 | DIS ---
DATE OF ADMISSION: 01/31/2018 DATE OF DISCHARGE: 02/10/2018 DISCHARGE DISPOSITION: To home. PRIMARY DISCHARGE DIAGNOSES: Pulmonary embolus; acute on chronic respiratory failure with hypoxia, resolved; lung cancer, on chemo and radiation; history of Crohn's disease; diabetes mellitus, type 2; hypertension; history of hep C; history of bipolar disorder. PROCEDURES DONE DURING HOSPITALIZATION: Echo with 2D Doppler done showed EF of 60% to 65% with grade I/III diastolic dysfunction. 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 Blood cultures x2 no growth. H&H 10 and 34, platelet count 292. PT/ INR 27 and 2.5 this morning. BUN 12, creatinine 0.6, albumin is 3.6. Had a troponin, which was indeterminate, peaking up to 0.05 on admission. BNP was 47 , CK-MB 3.3. DISCHARGE MEDICATIONS: Coumadin 7.5 mg p.o. daily, albuterol inhaler q.6 hourly p.r.n., citalopram 20 mg p.o. daily, clonazepam 1 mg p.o. twice daily, ferrous sulfate 325 mg p.o. daily. ALLERGIES: IODINE and CLARITHROMYCIN. DISCHARGE PLAN: The patient to follow up with Oncology as advised and Radiation Therapy. To follow up with primary care physician in 1 week. The patient needs to give her blood for INR check on Thursday that is 02/12/2018. BRIEF COURSE DURING HOSPITALIZATION: The patient initially got admitted on with complaints of increasing shortness of breath and wheezing. She was also on chemotherapy and radiation therapy for her lung cancer. The patient had a CT angio chest done, which showed pulmonary embolus. She was placed on heparin and Coumadin. Her INR is therapeutic this morning. She is wanting to go home. The patient needs to check her INR on Thursday and follow up with the Coumadin clinic for the same. She is otherwise hemodynamically stable and is ambulating and eating well prior to discharge. She is off oxygen supplementation from last 2-1/2 days now. Please see a [id number] documentation on [employer] for the day of discharge. CHRIS
--- NOTE | 2018-02-11 15:42 | OP ---
DATE OF PROCEDURE: 02/03/2018 PREOPERATIVE DIAGNOSIS: Lung cancer. POSTOPERATIVE DIAGNOSIS: Lung cancer. PROCEDURE PERFORMED: Tunneled central line subcutaneous port (MediPort, CT injectable). SURGEON: Tejas Taylor M.D. ANESTHESIA: General. ESTIMATED BLOOD LOSS: Minimal. COMPLICATIONS: None. SPECIMEN: None. FINDINGS: Tip of catheter at atriocaval junction. TECHNIQUE: The patient was taken to the operating room and placed supine on the table. After genera l anesthetic was obtained, bilateral neck were shaved, prepped, and draped in a sterile fashion as is the chest. Local anesthetic infiltrated over the right internal jugular vein. Intrajugular vein ca nnulated using a 22-gauge finder needle followed by a Seldinger needle. Wire was passed into the sup erior vena cava under fluoroscopic guidance. A small maximino was made at the wire entrance site. A sep arate 3-cm incision made in the right upper chest. Subcutaneous pocket made below the lower incision . Tubing for the MediPort tunneled from the inferior to superior incision. Introducer sheath was pl aced over the wire into the superior vena cava under fluoroscopic guidance. The dilator and wire rem nish and the catheter site into the sheath and the sheath was peeled away. The tip of the catheter w as at the atriocaval junction. MediPort tubing was cut to fit the MediPort at the lower incision. M ediPort sewn to the chest wall in the subcutaneous pocket using Prolene. MediPort flushes and draws blood without difficulty. It was flushed with a heparin flush. All incisions were irrigated and kecia sed using 3-0 Vicryl, 4-0 Monocryl, and Dermabond. The patient went to recovery in stable condition. All sponge counts, needle counts, and lap counts were correct.
== END 2018-02-10 15:54 | disposition home or self-care (01) | DRG 175 ==
LOC: ERS 22:27 → 2NO 01-31 02:40 → ONC 02-01 14:22
PROVIDERS: ADMIT Internal Medicine; ATTEND Internal Medicine
PROC: 0JH60WZ Insertion of Totally Implantable Vascular Access Device into Chest Subcutaneous Tissue and Fascia, Open Approach (ICD-10-PCS; principal; 2018-02-03)
PROC: 02HV33Z Insertion of Infusion Device into Superior Vena Cava, Percutaneous Approach (ICD-10-PCS; 2018-02-03)
PROC: B518ZZA Fluoroscopy of Superior Vena Cava, Guidance (ICD-10-PCS; 2018-02-03)
PROC: 3E04305 Introduction of Other Antineoplastic into Central Vein, Percutaneous Approach (ICD-10-PCS; 2018-02-09)
DX: I26.99 Other pulmonary embolism without acute cor pulmonale (principal); J96.01 Acute respiratory failure with hypoxia; E87.2 Acidosis; J44.1 Chronic obstructive pulmonary disease with (acute) exacerbation; E87.1 Hypo-osmolality and hyponatremia; I24.8 Other forms of acute ischemic heart disease; C34.31 Malignant neoplasm of lower lobe, right bronchus or lung; F17.210 Nicotine dependence, cigarettes, uncomplicated; F41.9 Anxiety disorder, unspecified; Z91.14 Patient's other noncompliance with medication regimen; Z79.01 Long term (current) use of anticoagulants; I10 Essential (primary) hypertension; G89.29 Other chronic pain; Z85.038 Personal history of other malignant neoplasm of large intestine; E11.9 Type 2 diabetes mellitus without complications; D63.8 Anemia in other chronic diseases classified elsewhere; M54.5 Low back pain; F31.9 Bipolar disorder, unspecified; I25.10 Atherosclerotic heart disease of native coronary artery without angina pectoris; I25.82 Chronic total occlusion of coronary artery; B18.2 Chronic viral hepatitis C; Z79.4 Long term (current) use of insulin; Z88.1 Allergy status to other antibiotic agents; Z88.8 Allergy status to other drugs, medicaments and biological substances
CPT/HCPCS: 36415; 36416; 71045; 71275; 77336; 77386; 80048; 80053; 81003; 82274; 82550; 82553; 82565; 83036; 83605; 83735; 83880; 84484; 85014; 85018; 85025; 85027; 85049; 85379; 85520; 85610; 85730; 87040; 93005; 93306; 94640; 94664; 94760; 96361; 96365; 96372; 96375; 99406; A4216; C1788; J0360; J0696; J1100; J1200; J1642; J1644; J1650; J1956; J2001; J2250; J2405; J2704; J2920; J2930; J3010; J7050; J7620; J9045; J9267; Q0162

== ENCOUNTER 2018-03-25 11:20 | Emergency (ER) | payer MEDICARE, MEDICAID ==
--- NOTE | 2018-03-25 11:49 | RAD ---
CHEST 2 VIEWS: Date: 03/25/18 HISTORY: Cough. COMPARISON: 02/03/18. FINDINGS: Cardiac silhouette and pulmonary vasculature are unremarkable. Spiculated mass at the right hilum is unchanged in appearance. Mediastinum midline with right internal jugular Port-A-Cath. No lobar consol idation, pneumothorax, or pleural fluid. IMPRESSION: Right hilar mass and other findings are stable. POS: [facility]
[2018-03-25 13:19] LABS: #Monocytes 0.5 thou/uL (0.11-0.59); #Neutrophils 1.8 thou/uL (1.40-6.50); %Basophils 0.2 % (0.0-1.0); %Eosinophils 0.6 % (0.0-10.0); %Lymphocytes 29.3 % (21.0-51.0); %Monocytes 14.4 % (0.0-10.0); %Neutrophils 55.5 % (42.0-75.0); Hemoglobin 10.2 g/dL (12.0-16.0); Mean Corpuscular HGB CONC 32.7 g/dL (32.0-36.0); Mean Corpuscular Volume 85.7 fl (81.0-99.0); Mean Platelet Volume 6.2 fL (7.4-10.4); Platelet Count 235 thou/uL (130-400); RBC Distribution Width 19.3 % (11.5-14.5); Red Blood Cell (RBC) Count 3.64 mill/uL (4.20-5.40); White Blood Cell (WBC) Count 3.2 thou/uL (4.8-10.8)
[2018-03-25 13:43] LABS: ALT (SGPT) 23 U/L (8-55); AST (SGOT) 24 U/L (5-34); Albumin 3.5 g/dL (3.4-4.8); Alkaline Phosphatase 65 U/L (40-150); Anion Gap 11 mmol/L (10-20); BUN (Urea Nitrogen) 6 mg/dL (9.8-20.1); Bilirubin, Total 0.3 mg/dL (0.2-1.2); CK (CPK) 198 U/L (29-168); Calc. Creatinine Clearance 0 mL/min (70-130); Carbon Dioxide 28 mmol/L (23-31); Chloride 103 mmol/L (98-107); Estimated GFR-MDRD Greater than 90; Globulin 2.7 g/dL (2.4-3.5); Glucose 83 mg/dL (80-115); Protein, Total 6.2 g/dL (6.0-8.3); Sodium 138 mmol/L (136-145)
[2018-03-25] MEDS ORDERED: diphenhydrAMINE 50 MG/ML VIAL ONE (13:45)
[2018-03-25] MEDS ORDERED: Famotidine 20 MG TAB ONE (13:45)
[2018-03-25] MEDS ORDERED: methylPREDNISolone Sod Succ/PF 125 MG/2 ML VIAL ONE (13:45)
[2018-03-25] MEDS ORDERED: Water For Inject, Bacteriostat 30 ML ONE (13:45)
[2018-03-25 13:46] LABS: CKMB 2.4 ng/mL (0-6.6); Troponin I Less than 0.010 ng/mL (< 0.028)
[2018-03-25] MEDS ORDERED: Famotidine/PF 20 mg/2ml Vial SLOW IVP SCH (14:00)
--- NOTE | 2018-03-25 15:42 | CT ---
CT ARTERIOGRAM CHEST WITH IV CONTRAST AND 3D MIP IMAGING: Date: 03/25/18 HISTORY: Chest pain. Dyspnea. Lung cancer. COMPARISON: 01/31/18. FINDINGS: Good contrast opacification of the central pulmonary arteries and thoracic aorta is apparent without focal filling defect evident. Large mass at the right hilum with narrowing of the second order right pulmonary arteries is similar in appearance to the previous exam. Subcarinal adenopathy is stable. Mi ld atelectasis at the lung bases. No evidence of pneumothorax. Bovine origin of the great vessels at the aortic arch. Prominent arterial calcification. Narrowing of the left subclavian origin with long segment occlusion and distal reconstitution. IMPRESSION: 1. No CT evidence of pulmonary embolus. 2. Large right hilar mass and mediastinal adenopathy appear stable. 3. 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 POS: [facility]
[2018-03-25] MEDS ORDERED: ISOVUE-370 76%-LOCM 1 ML ONE (16:17)
== END 2018-03-25 16:35 | disposition home or self-care (01) ==
LOC: ERS 11:20
DX: S20.212A Contusion of left front wall of thorax, initial encounter (principal); R05 Cough; C34.90 Malignant neoplasm of unspecified part of unspecified bronchus or lung; Z71.6 Tobacco abuse counseling; I10 Essential (primary) hypertension; J45.909 Unspecified asthma, uncomplicated; F17.210 Nicotine dependence, cigarettes, uncomplicated; Z79.899 Other long term (current) drug therapy; X58.XXXA Exposure to other specified factors, initial encounter
CPT/HCPCS: 71046; 71275; 80053; 82550; 82553; 83880; 84484; 85025; 93005; 96374; 96375; 96376; 99406; J1200; J1642; J2270; J2930; S0028

== ENCOUNTER 2018-04-12 00:41 | Emergency (ER) | payer MEDICARE, MEDICAID ==
[2018-04-12] MEDS ORDERED: Ondansetron ODT 8 MG TAB ONE (01:23)
[2018-04-12] MEDS ORDERED: Ketorolac Tromethamine 30 MG/ML VIAL ONE (02:15)
[2018-04-12] MEDS ORDERED: HYDROcodone/Acetaminophen 5/325 mg Tablet ONE (02:15)
[2018-04-12 02:31] LABS: #Eosinphils 0.1 thou/uL (0.0-0.7); #Lymphocytes 1.1 thou/uL (1.20-3.40); #Monocytes 0.6 thou/uL (0.11-0.59); #Neutrophils 4.3 thou/uL (1.40-6.50); %Basophils 0.3 % (0.0-1.0); %Eosinophils 1.6 % (0.0-10.0); %Lymphocytes 18.4 % (21.0-51.0); %Monocytes 9.9 % (0.0-10.0); %Neutrophils 69.9 % (42.0-75.0); Hemoglobin 10.6 g/dL (12.0-16.0); Mean Corpuscular HGB CONC 34.6 g/dL (32.0-36.0); Mean Corpuscular Hemoglobin 29.5 pg (27.0-31.0); Mean Corpuscular Volume 85.4 fL (78.0-98.0); Platelet Count 194 thou/uL (130-400); RBC Distribution Width 17.2 % (11.5-14.5); White Blood Cell (WBC) Count 6.1 thou/uL (4.8-10.8)
[2018-04-12 02:51] LABS: ALT (SGPT) 17 U/L (8-55); AST (SGOT) 15 U/L (5-34); Albumin 3.4 g/dL (3.4-4.8); Alkaline Phosphatase 65 U/L (40-150); Anion Gap 10 mmol/L (10-20); BUN (Urea Nitrogen) 7 mg/dL (9.8-20.1); Bilirubin, Total 0.3 mg/dL (0.2-1.2); Calc. Creatinine Clearance 0 mL/min (70-130); Calcium 8.8 mg/dL (7.8-10.44); Carbon Dioxide 25 mmol/L (23-31); Chloride 106 mmol/L (98-107); Estimated GFR-MDRD Greater than 90; Globulin 2.9 g/dL (2.4-3.5); Glucose 97 mg/dL (80-115); Potassium 3.5 mmol/L (3.5-5.1); Protein, Total 6.3 g/dL (6.0-8.3); Sodium 137 mmol/L (136-145)
--- NOTE | 2018-04-12 07:36 | RAD ---
PORTABLE UPRIGHT FRONTAL CHEST: Date: 04/12/18 COMPARISON: 02/03/18. HISTORY: Cough and back pain. FINDINGS: Heart and mediastinal contours are stable. There is rounded soft tissue density in the right hilar re gion, consistent with mass density seen on the 03/25/[address] inject able right-sided Port-A-Cath present. No pneumothorax, pleural fluid, focal consolidation, or alveola r edema. IMPRESSION: Right hilar mass, unchanged. No acute findings. POS: [facility]
--- NOTE | 2018-04-17 12:50 | EKG ---
Test Reason : Blood Pressure : / mmHG Vent. Rate : 104 BPM Atrial Rate : 104 BPM P-R Int : 144 ms QRS Dur : 092 ms QT Int : 348 ms P-R-T Axes : 051 018 062 degrees QTc Int : 457 ms Sinus tachycardia Nonspecific T wave abnormality Abnormal ECG Confirmed by OLIVIA MCGRATH ([id number]), managing editor BRADLEY VILLANUEVA ([id number]) on 04/17/2018 12:50:21 PM Referred By: Confirmed By:OLIVIA MCGRATH
== END 2018-04-12 03:14 | disposition home or self-care (01) ==
LOC: ERS 00:41
DX: R05 Cough (principal); M54.9 Dorsalgia, unspecified; I10 Essential (primary) hypertension; F41.9 Anxiety disorder, unspecified; F32.9 Major depressive disorder, single episode, unspecified; F17.210 Nicotine dependence, cigarettes, uncomplicated; J45.909 Unspecified asthma, uncomplicated; K50.90 Crohn's disease, unspecified, without complications; G89.29 Other chronic pain; Z85.118 Personal history of other malignant neoplasm of bronchus and lung; Z79.899 Other long term (current) drug therapy
CPT/HCPCS: 36415; 71045; 80053; 85025; 93005; 96361; 96374; 96375; J1885; J2270

== ENCOUNTER 2018-04-15 13:02 | Day surgery (SDC) | payer MEDICARE, MEDICAID ==
[2018-04-15] MEDS ORDERED: SODIUM CHLORIDE 0.9% IV SCH (13:30)
[2018-04-15] MEDS ORDERED: DURVALUMAB IV SCH (13:30)
[2018-04-15 14:10] VITALS: BP 126/97; TEMP 98.8
== END 2018-04-15 15:00 | disposition home or self-care (01) ==
LOC: ONC/OP 13:02
PROVIDERS: ATTEND Internal Medicine Medical Oncology
DX: Z51.11 Encounter for antineoplastic chemotherapy (principal); C34.31 Malignant neoplasm of lower lobe, right bronchus or lung; I26.99 Other pulmonary embolism without acute cor pulmonale; I10 Essential (primary) hypertension; M19.90 Unspecified osteoarthritis, unspecified site; J44.9 Chronic obstructive pulmonary disease, unspecified; F41.9 Anxiety disorder, unspecified; F32.9 Major depressive disorder, single episode, unspecified; K21.9 Gastro-esophageal reflux disease without esophagitis; F17.210 Nicotine dependence, cigarettes, uncomplicated; Z88.1 Allergy status to other antibiotic agents; Z88.8 Allergy status to other drugs, medicaments and biological substances; Z85.038 Personal history of other malignant neoplasm of large intestine; Z85.42 Personal history of malignant neoplasm of other parts of uterus; Z79.899 Other long term (current) drug therapy
CPT/HCPCS: 36415; 80053; 82248; 83615; 84100; 84436; 84443; 84550; 96413; C9492; J7050

== ENCOUNTER 2018-04-28 14:28 | Emergency (ER) | payer MEDICARE, MEDICAID ==
[2018-04-28] MEDS ORDERED: Ketorolac Tromethamine 60 MG/2 ML VIAL ONE (15:54)
[2018-04-28 16:01] LABS: #Eosinphils 0.1 thou/uL (0.0-0.7); #Lymphocytes 1.1 thou/uL (1.20-3.40); #Monocytes 0.6 thou/uL (0.11-0.59); #Neutrophils 3.9 thou/uL (1.40-6.50); %Basophils 0.6 % (0.0-1.0); %Eosinophils 1.8 % (0.0-10.0); %Lymphocytes 18.3 % (21.0-51.0); %Monocytes 10.7 % (0.0-10.0); %Neutrophils 68.6 % (42.0-75.0); Hemoglobin 12.5 g/dL (12.0-16.0); Mean Corpuscular HGB CONC 33.5 g/dL (32.0-36.0); Mean Corpuscular Hemoglobin 29.3 pg (27.0-31.0); Mean Corpuscular Volume 87.3 fL (78.0-98.0); Mean Platelet Volume 5.8 fL (7.4-10.4); Platelet Count 216 thou/uL (130-400); RBC Distribution Width 14.8 % (11.5-14.5); Red Blood Cell (RBC) Count 4.27 mill/uL (4.20-5.40); White Blood Cell (WBC) Count 5.7 thou/uL (4.8-10.8)
--- NOTE | 2018-04-28 16:13 | RAD ---
AP VIEW OF THE CHEST: 04/28/18 INDICATION: Chest pain with right upper extremity numbness. COMPARISON: Prior exam dated 04/12/18. FINDINGS: COPD changes are similar. Right chest wall port is similar. The patient is rotated heavily to the rig ht limiting evaluation of the cardiomediastinal silhouette. No pleural effusion or pneumothorax evide nt. Postsurgical changes of the left distal clavicle excision is similar appearing. IMPRESSION: 1. Stable COPD change. 2. Some limitations to the exam as above. No definite acute cardiopulmonary abnormalities. POS: [facility]
--- NOTE | 2018-04-28 16:21 | CT ---
CT BRAIN WITHOUT CONTRAST: Indication: History of right upper extremity numbness and paraesthesia for the past three days. FINDINGS: There are areas of subcortical edema involving both frontal lobes, left parietal and left occipital r egion. There are also subtle areas of hypodensity involving the right cerebellum on Image 10 of Serie s 2. 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 No midline shift is evident. No intracranial hemorrhage is noted. Skull and extracranial soft tissues unremarkable. IMPRESSION: 1. Areas of subcortical hypodensity involving both cerebral hemispheres and right cerebellar hemisphe re, suspicious for metastatic disease. There is a focal oval hypodensity within the left parietal reg ion measuring up to 2.1 cm suspicious for a large intraparenchymal metastatic lesion. Further evaluat ion with MR of the brain with and without contrast recommended. 2. Stable remote lacunar infarct involving the left cerebellar hemisphere. 3. Findings were called to Dr. Hanson at 4:15 p.m. on 04-28-18. Code CR. POS: [facility]
[2018-04-28 16:23] LABS: ALT (SGPT) 35 U/L (8-55); AST (SGOT) 35 U/L (5-34); Albumin 3.8 g/dL (3.4-4.8); Alkaline Phosphatase 72 U/L (40-150); Anion Gap 12 mmol/L (10-20); BUN (Urea Nitrogen) 12 mg/dL (9.8-20.1); Bilirubin, Total 0.3 mg/dL (0.2-1.2); CK (CPK) 44 U/L (29-168); Calc. Creatinine Clearance 0 mL/min (70-130); Calcium 9.5 mg/dL (7.8-10.44); Carbon Dioxide 27 mmol/L (23-31); Chloride 103 mmol/L (98-107); Estimated GFR-MDRD 88; Globulin 3.2 g/dL (2.4-3.5); Glucose 63 mg/dL (80-115); Lipase 6 U/L (8-78); Potassium 4.2 mmol/L (3.5-5.1); Sodium 138 mmol/L (136-145)
[2018-04-28 16:25] LABS: CKMB 1.3 ng/mL (0-6.6); Troponin I Less than 0.010 ng/mL (< 0.028)
[2018-04-28 18:00] LABS: INR-International Normal Ratio 1.2; PTT 30.7 SEC (22.9-36.1); Prothrombin Time 15.6 SEC (12.0-14.7)
[2018-04-28] MEDS ORDERED: Dexamethasone 10 MG/ML VIAL ONE (18:25)
--- NOTE | 2018-04-29 02:11 | CON ---
DATE OF CONSULTATION: 04/28/2018 Ezio Alex PA-C dictating for Eriberto Breaux MD A 30-minute initial patient evaluation in which greater than 50% of the exam was spent counseling and coordinating patient's care. Remainder of exam was spent in review of patient's medical records and appropriate imaging studies. CHIEF COMPLAINT: Right hand numbness and tingling with right arm weakness. HISTORY OF PRESENT ILLNESS: Ms. Steel is a 62-year-old female who presents to the [facility] Room for the above complaints. Apparently, the patient has a history of colon cancer as well a s lung cancer diagnosis in 11/2016, did undergo a colectomy for her colon cancer. She reports two to three-day history of right arm numbness and weakness, especially into the right hand. She also note s increased falls roughly one time per day, although does not use an assistive device for ambulation. She continues to smoke a pack a day of cigarettes. She does also have a history of pulmonary embol ism diagnosed in 07/2017 and is on Coumadin. Head CT noncontrast was obtained in the ER that shows m ultifocal metastatic lesions throughout the brain. There is some surrounding edema that may account for the patient's increased falls and right arm numbness and weakness. It should also be noted that the patient does complain of left frontal and temporal region headaches. These have been going on fo r the past month and have become progressively worse according to the patient. PHYSICAL EXAMINATION: The patient is awake, alert, and appropriate. She has no teeth. She does sme ll of cigarette smoke. Her GCS currently is 15. She is appropriately conversant. She does look olde r than her stated age. She has some mild weakness in the entire right upper extremity, but otherwise has good strength on the remaining extremities. Gait was not tested; however, she did walk into the ER today without an assistive device. IMPRESSION AND DIAGNOSES: History of multiple cancers including uterine, colon, lung now with metasta tic lesions to the brain. PLAN: I have discussed the patient's case and imaging with Dr. Breaux. At this time, the patient do es not require neurosurgical intervention given the fact that there are multiple lesions within the b rain and she is a better candidate for radiation therapy to be directed by Oncology. She is the alexis ent of Dr. Hardin. We discussed the patient's case with medicine. They will provide some steroi ds for the patient and have her followup with Oncology as soon as possible to begin radiation treatme nts. At this time, the patient again does not require any type of neurosurgical intervention. We wi ll continue with followup with Oncology. Please call with any questions or changes in patient's neur ologic status. Otherwise, Neurosurgery will sign off.
== END 2018-04-28 18:44 | disposition home or self-care (01) ==
LOC: ERS 14:28
DX: C79.31 Secondary malignant neoplasm of brain (principal); G89.29 Other chronic pain; J45.909 Unspecified asthma, uncomplicated; F41.9 Anxiety disorder, unspecified; F32.9 Major depressive disorder, single episode, unspecified; K58.9 Irritable bowel syndrome, unspecified; F17.210 Nicotine dependence, cigarettes, uncomplicated; I10 Essential (primary) hypertension; Z79.891 Long term (current) use of opiate analgesic; Z79.899 Other long term (current) drug therapy
CPT/HCPCS: 36415; 70450; 71045; 80053; 82553; 83690; 84484; 85025; 85610; 85730; 86850; 86900; 86901; 93005; 96372; 96374; 96375; 99406; J1100; J1885; J2270

== ENCOUNTER 2018-04-30 14:34 | Outpatient (CLI) | payer MEDICARE, MEDICAID ==
--- NOTE | 2018-04-30 16:40 | MRI ---
MRI OF BRAIN WITHOUT AND WITHOUT CONTRAST: 04/30/18 Reference made to prior brain MRI 08/28/[address] 04/28/18. CLINICAL HISTORY: Lung malignancy. Secondary malignant neoplasm of brain. FINDINGS: There is multifocal pathologic intra-axial enhancement of both supratentorial and infratentorial with associated scattered areas of vasogenic edema. Dominant lesion is predominantly cystic with solid no dular component located within the left occipital lobe with a diameter of 2.1 cm. There are numerous additional supratentorial enhancing lesions are present bilaterally as well as enhancing focus of the right cerebellar hemisphere. No midline shift. No intracranial hemorrhage. There is no evidence of a cute territorial infarction. There is mild chronic microvascular ischemic disease. Remote lacunar inf arctions of the cerebellum are present. Focal outpouching of the right MCA region is present. IMPRESSION: Diffuse intracranial metastatic disease, both supratentorial and infratentorial, with dominant lesion localizing to the left occipital lobe demonstrating a solid and cystic morphology. Focal outpouching of the right MCA region is present. This is suspicious for aneurysm. Correlate wi CTA [place]. POS: [facility]
== END 2018-04-30 14:35 | disposition home or self-care (01) ==
LOC: MRI 14:34
PROVIDERS: ATTEND Radiology Radiation Oncology
DX: C79.31 Secondary malignant neoplasm of brain (principal); C34.90 Malignant neoplasm of unspecified part of unspecified bronchus or lung; R20.0 Anesthesia of skin; G93.9 Disorder of brain, unspecified
CPT/HCPCS: 70553